=== PATIENT | male | born 1950 | race Caucasian/White ===

== ENCOUNTER → 2018-11-16 | Outpatient (CLI) | payer MEDICARE, OTHER ==
[~2018-11-16] MED LIST: ACET325 PO; ALBU90OI61 INH; ANDROGEL; FLUD.1; FLUSAL1005 INH; Fludrocortison0.1 MG PO; HYDCOR10; HYDCOR20 PO; INSLI100I; INSLI100I SUBQ; INSULANI; INSULANI SUBQ; INSULANPEN SC; LEVO750 PO; LEVSOD50; LEVSOD50 PO; PANT40 PO; Prednisone20 MG PO; SYNTHROID PO; TESTOSTERONE; [UNRECOGNIZED DRUG - OTHER]
== END | disposition home or self-care (01) ==
LOC: LAB SHORT 15:18 → LAB EV 15:18
DX: R31.9 Hematuria, unspecified (principal)
CPT/HCPCS: 87086

== ENCOUNTER → 2019-09-17 | Outpatient (CLI) | payer MEDICARE, OTHER | END | disposition home or self-care (01) | LOC: PLD 10:34 → LAB SHORT 10:34 | DX: L30.8 Other specified dermatitis (principal) | CPT/HCPCS: 88305; 88312 ==

== ENCOUNTER → 2020-03-30 | Outpatient (CLI) | payer MEDICARE, OTHER ==
[2020-03-30 16:55] LABS: BASOPHILS ABSOLUTE AUTO 0.06 K/mm3 (0.00-0.23); BASOPHILS PERCENT AUTO 1 % (0-2); EOSINOPHILS ABSOLUTE AUTO 0.19 K/mm3 (0.00-0.68); EOSINOPHILS PERCENT AUTO 2 % (0-6); Hematocrit 39.2 % (37.0-53.0); IMMATURE GRAN ABSOLUTE AUTO 0.03 K/mm3 (0.00-0.10); IMMATURE GRAN PERCENT AUTO 0 % (0-1); LYMPHOCYTES ABSOLUTE AUTO 1.74 K/mm3 (0.84-5.20); LYMPHOCYTES PERCENT AUTO 21 % (21-46); MONOCYTES PERCENT AUTO 13 % (4-13); Mean Corpuscular HGB 31.9 pg (26.0-34.0); Mean Corpuscular HGB Conc 33.2 g/dL (31.5-36.5); Mean Corpuscular Volume 96 fL (80-100); Mean Platelet Volume 10.6 fL (9.1-12.4); NEUTROPHILS PERCENT AUTO 63 % (41-73); Platelet Count 289 K/mm3 (150-400); RDW Standard Deviation 51.9 fL (35.1-46.3); Red Blood Cell Count 4.08 M/mm3 (4.30-5.90); White Blood Cell Count 8.42 K/mm3 (4.00-11.30)
[2020-03-30 17:07] LABS: Albumin, Blood 2.7 g/dL (3.4-5.0); Albumin/Globulin Ratio 0.7 (0.8-1.8); Bilirubin, Total 0.6 mg/dL (0.1-1.0); Calcium, Blood 8.5 mg/dL (8.5-10.1); Creatinine, Blood 1.94 mg/dL (0.60-1.20); Globulin, Blood 3.8 g/dL (2.2-4.0); Total Protein, Blood 6.5 g/dL (6.4-8.2)
[2020-03-31 16:10] LABS: Campylobacter Sp Not Detected (NOT DETECT)
[2020-03-31 16:13] LABS: Adenovirus F 40/41 Not Detected (NOT DETECT); Astrovirus Not Detected (NOT DETECT); Cryptosporidium Not Detected (NOT DETECT); Cyclospora Cayetanensis Not Detected (NOT DETECT); E. Coli O157 Not Detected (NOT DETECT); Entamoeba Histolytica Not Detected (NOT DETECT); Enteroaggregative E. coli-EAEC Not Detected (NOT DETECT); Enteropathogenic E. coli-EPEC Not Detected (NOT DETECT); Enterotoxigenic E. coli-ETEC Not Detected (NOT DETECT); Giardia Lamblia Not Detected (NOT DETECT); Norovirus GI/GII Not Detected (NOT DETECT); Plesiomonas Shigelloides Not Detected (NOT DETECT); Rotavirus A Not Detected (NOT DETECT); Salmonella Sp Not Detected (NOT DETECT); Sapovirus Not Detected (NOT DETECT); Shiga Toxin-prod E. coli-STEC Not Detected (NOT DETECT); Shigella/Enteroin E. coli-EIEC Not Detected (NOT DETECT); Vibrio Cholerae Not Detected (NOT DETECT); Vibrio Sp Not Detected (NOT DETECT); Yersinia Enterocolitica Not Detected (NOT DETECT)
== END ==
LOC: LAB EV 16:51 → LAB SHORT 16:51
PROVIDERS: Emergency Medicine
DX: R10.9 Unspecified abdominal pain (principal)
CPT/HCPCS: 0097U; 80053; 85025; 87338

== ENCOUNTER 2020-04-09 12:31 | Inpatient (IN) | payer MEDICARE, OTHER ==
[~2020-04-09] VITALS: Ht 175.3 cm; Wt 79.1 kg
[~2020-04-09 12:31] MED LIST changes: -ALBU90OI61 INH; -HYDCOR20 PO; -INSLI100I SUBQ; -INSULANPEN SC; -LEVSOD50 PO; -TESTOSTERONE
[2020-04-09 13:33] LABS: Hematocrit 42.5 % (37.0-53.0); Hemoglobin 13.5 g/dL (13.5-17.5); Mean Corpuscular HGB 31.7 pg (26.0-34.0); Mean Corpuscular HGB Conc 31.8 g/dL (31.5-36.5); Mean Platelet Volume 10.4 fL (9.1-12.4); NRBC ABSOLUTE 0.02 K/mm3 (0.00-0.02); NRBC Auto 0.1 /100 WBC (0.0-0.2); Platelet Count 380 K/mm3 (150-400); RDW Coefficient Variation 14.5 % (11.7-14.2); RDW Standard Deviation 53.1 fL (35.1-46.3); Red Blood Cell Count 4.26 M/mm3 (4.30-5.90); White Blood Cell Count 18.28 K/mm3 (4.00-11.30)
[2020-04-09 13:37] LABS: Mean Corpuscular Volume 100 fL (80-100)
[2020-04-09 13:53] LABS: Albumin, Blood 2.3 g/dL (3.4-5.0); Albumin/Globulin Ratio 0.6 (0.8-1.8); Globulin, Blood 4.1 g/dL (2.2-4.0); Potassium, Blood 3.7 mmol/L (3.5-5.5); Total Protein, Blood 6.4 g/dL (6.4-8.2)
[2020-04-09 14:05] LABS: BAND PERCENT MAN 19 % (0-8); BASOPHILS PERCENT MAN 0 % (0-2); EOSINOPHILS ABSOLUTE MAN 0.36 K/mm3 (0.00-0.68); EOSINOPHILS PERCENT MAN 2 % (0-6); LYMPHOCYTES ABSOLUTE MAN 4.75 K/mm3 (0.84-5.20); LYMPHOCYTES PERCENT MAN 26 % (21-46); METAMYELOCYTE ABSOLUTE MAN 0.36 K/mm3 (0.00-0.00); METAMYELOCYTE PERCENT MAN 2 % (0-0); MONOCYTES ABSOLUTE MAN 0.36 K/mm3 (0.16-1.47); MONOCYTES PERCENT MAN 2 % (4-13); NEUTROPHILS ABSOLUTE MAN 12.43 K/mm3 (1.96-9.15); SEG NEUTROPHILS PERCENT MAN 49 % (41-73); TOTAL CELLS COUNTED 100
[2020-04-09] MEDS ORDERED: Humalog100 UNIT/3 SC (15:27)
[2020-04-09] MEDS ORDERED: Depo-Testos200 MG/ML IM (15:29)
[2020-04-09] MEDS ORDERED: ALBU90OI INH (15:30)
[2020-04-09] MEDS ORDERED: FLUT1DIS5 INH (15:31)
[2020-04-09] MEDS ORDERED: BASAGLAR K100 UNIT/2 SC (15:32)
[2020-04-09] MEDS ORDERED: LEVSOD100 PO (15:33)
[2020-04-09] MEDS ORDERED: HYDCOR10 PO (15:34)
[2020-04-09] MEDS ORDERED: HYDCOR20 PO (15:34)
[2020-04-09] MEDS ORDERED: LOSA25 PO (15:36)
[2020-04-09] MEDS ORDERED: BASAGLAR K100 UNIT/2 PO (15:45)
--- NOTE | 2020-04-10 04:18 | NUR ---
SHIFT SUMMARY ADMITTED FOR AUTOIMMUNE COLLITIS. FULL CODE. GI CONSULT, DR NAVARRETE, HAS BEEN CALLED THIS SHIFT. NS W/KCL INFUSING @ 75 ML/HR. HE IS INDEPENDENT TO STANDBY ASSIST TO BSC. IS ON CLEAR LIQUID DIET, BUT WHEN ADVANCED - NOTE: KOSHER DIET. HE IS ON RA. RED TINGED LOOSE STOOL REPORTED, NONE COLLECTED THIS SHIFT FOR SPECIMEN.
[2020-04-10 05:38] LABS: Hematocrit 40.8 % (37.0-53.0); Hemoglobin 13.1 g/dL (13.5-17.5); Mean Corpuscular HGB 31.5 pg (26.0-34.0); Mean Corpuscular HGB Conc 32.1 g/dL (31.5-36.5); Mean Corpuscular Volume 98 fL (80-100); Mean Platelet Volume 10.5 fL (9.1-12.4); Platelet Count 344 K/mm3 (150-400); RDW Standard Deviation 50.6 fL (35.1-46.3); Red Blood Cell Count 4.16 M/mm3 (4.30-5.90)
[2020-04-10 05:57] LABS: BAND PERCENT MAN 25 % (0-8); BASOPHILS PERCENT MAN 0 % (0-2); EOSINOPHILS ABSOLUTE MAN 0.09 K/mm3 (0.00-0.68); EOSINOPHILS PERCENT MAN 1 % (0-6); LYMPHOCYTES ABSOLUTE MAN 1.18 K/mm3 (0.84-5.20); LYMPHOCYTES PERCENT MAN 12 % (21-46); MONOCYTES ABSOLUTE MAN 0.29 K/mm3 (0.16-1.47); MONOCYTES PERCENT MAN 3 % (4-13); NEUTROPHILS ABSOLUTE MAN 8.31 K/mm3 (1.96-9.15); SEG NEUTROPHILS PERCENT MAN 59 % (41-73); TOTAL CELLS COUNTED 100
[2020-04-10 06:00] LABS: Albumin, Blood 1.9 g/dL (3.4-5.0); Albumin/Globulin Ratio 0.5 (0.8-1.8); Bilirubin, Total 0.5 mg/dL (0.1-1.0); Bun/Creatinine Ratio 16.3 (12.0-20.0); Calcium, Blood 7.8 mg/dL (8.5-10.1); Creatinine, Blood 2.15 mg/dL (0.60-1.20); Globulin, Blood 4.2 g/dL (2.2-4.0); Potassium, Blood 4.4 mmol/L (3.5-5.5); Total Protein, Blood 6.1 g/dL (6.4-8.2)
--- NOTE | 2020-04-10 13:31 | NUR ---
LEFT MESSAGE ON VOICE MAIL THAT PATIENT POSITIVE FOR C.DIFF.
--- NOTE | 2020-04-10 16:47 | NUR ---
ALERT. ORIENTED. PATIENT DOES NOT WISH RINGER ON ON PHONE WHICH HAS SIGNIFICANTLY UPSET HIS WHO HAS CALLED AND TALKED TO THIS NURSE. PATIENT AMBULATORY TO HALLWAY STEADY GAIT WITHOUT DIFFICULTY. HAS C/O ABD PAIN, BUT REFUSES PAIN MEDS SAYS "FEELS MUCH BETTER THAN WHEN HE CAME IN."UNLABORED RESPIRATIONS. POOR APPETITE. ABLE TO MAKE NEEDS KNOWN. DOES NOT WISH TO BE AWAKENED BU PHONE. [facility]
--- NOTE | 2020-04-11 01:15 | NUR ---
CALLED CONSULT DR NAVARRETE'S ANSWERING SERVICE LEFT MESSAGE. PT HAS DECIDED THAT HE DOES NOT WANT TO TAKE THE GO-LYTELY BOWEL PREP FOR HIS COLONOSCOPY TOMORROW. PT HAS DECIDED THAT HE WANTS THE BOWEL PREP WITH "JUST A FEW OUNCES, BUT IT'S EXPENSIVE". THIS BOWEL PREP OPTION IS NOT ALWAYS COVERED BY INSURANCE. THE PT STATES THAT HIS WILL PAY THE COST IN THE MORNING. PHARMACIST INFORMS ME THAT THERE ARE THOSE TYPES OF OPTIONS FOR BOWEL PREP AVAILABLE, IF DR NAVARRETE IS AGREEABLE TO ORDER IT.
--- NOTE | 2020-04-11 02:35 | NUR ---
CALLED PHARMACY SPOKE TO PHARMACY ABOUT ABX AND GRAM+ COCCI CLUSTERS. HE STATED ROCEPHINE IS LIKLY EFFECTIVE AGAINST GRAM+, FLAGYL IS LESS SO. IF THE CULTURE COMES BACK MRSA [facility] MAY FIND VANCOMYCIN MORE EFFECTIVE.
--- NOTE | 2020-04-11 05:19 | NUR ---
SHIFT SUMMARY ADMITTED FOR COLITIS. FULL CODE. POSITIVE FOR CDIF. CONSULT DR NAVARRETE WILL PERFORM A COLONOSCOPY TODAY. PT WILL BE NPO AT NOON. PT REFUSING GO LYTELY, REQUESTING A DIFFERENT BOWEL PREP WITH LESS VOLUME - CONSULT 'S ANSWERING SERVICE INFORMED. PHARMACY STATES OTHER BOWEL PREP OPTIONS ARE AVAILABLE BUT DR NAVARRETE MUST APPROVE THE ALTERNATIVE. PT HAD POSITIVE BLOOD CULTURES FOR GRAM POSITIVE COCCI CLUSTERS. I HAD INORGANIC CHEMICAL TECHNICIAN CALL PHARMACIST TO ASK IF CURRENT ANTIB RX WOULD BE EFFECTIVE - SEE INORGANIC CHEMICAL TECHNICIAN'S PREVIOUS NOTE. PT'S CALLED TO INQUIRE IF AN UPPER ENDOSCOPY COULD ALSO BE PERFORMED, I WILL PASS ON THIS QUESTION TO THE DAY NURSE.
--- NOTE | 2020-04-11 05:53 | NUR ---
NAVY FIGHTER PILOT SUMMARY PT AAOX4. PT WAS AWAKE THROUGHT THE NIGHT. PT TO HAVE A COLONOSCOPY IN THE AFTERNOON TODAY. NPO AT NOON. PT REQUESTED DIFFERENT BOWEL PREP, RN LEFT MESSAGE WITH DOCTORS ANSWERING SERVICE. PT BLOOD CULTURE POSITIVE FOR GRAM+ COCCI CLUSTERS. CALLED PHARMACY TO CHECK CURRENT ABX EFFECTIVENESS, SEE NOTE JOURNEYMAN PATTERNMAKER FOR ADDITIONAL INFORMATION. WILL MONITOR UNTIL SHIFT CHANGE.
--- NOTE | 2020-04-11 07:47 | NUR ---
TALKED TO ; BLD SUGAR 428, POS BLD CULTURE COCCI CLUTERS, C.DIFF POS, NEG TOXIN. ORDER LANTUS 10 UNITS ONE TIME, PATIENT HAD REFUSED LANTUS LAST NIGHT. TO ORDER LABS.
[2020-04-11 08:41] LABS: Albumin, Blood 1.9 g/dL (3.4-5.0); Anion Gap 15 mmol/L (6-16); Blood Urea Nitrogen 52 mg/dL (8-24); Bun/Creatinine Ratio 25.4 (12.0-20.0); CO2, Blood 15 mmol/L (21-32); Calcium, Blood 7.5 mg/dL (8.5-10.1); Chloride, Blood 106 mmol/L (98-108); Creatinine, Blood 2.05 mg/dL (0.60-1.20); Glomerular Filtration Rate 34 (60-); Glucose, Blood 468 mg/dL (70-99); Phosphorus, Blood 4.7 mg/dL (2.5-4.9); Potassium, Blood 5.3 mmol/L (3.5-5.5); Sodium, Blood 136 mmol/L (136-145)
--- NOTE | 2020-04-11 11:45 | NUR ---
NOTIFIED D SUGAR 473. GIVE 10 UNITS AND RECHECK IN 3-3 1/2 HOURS.
--- NOTE | 2020-04-11 12:37 | NUR ---
ADVISED PATIENT STS COULD NOT DRINK ALL FLUID BY 1200, SO NOT STARTED. ADVISED OUR PHARMACY DOES HAVE THAT PARTICULAR BOWEL PREP. CLEAR LIQUIDS FOR NOW AND WILL SEE PATIENT TONIGHT.
--- NOTE | 2020-04-11 15:17 | NUR ---
ADVISED D SUGAR 479. GIVE 1O UNITS LANTUS AND 12 UNITS SHORT ACTING INSULINS. RECHECK BEFORE DINNER.
--- NOTE | 2020-04-11 17:45 | NUR ---
TALKED TO ABOUT BLD SUGAR. GIVE 12 UNITS SHORT ACTING INSULIN. DO NOT GIVE STEROID. MD WILL ADJUST STEROID.
--- NOTE | 2020-04-11 18:44 | NUR ---
ALERT. ORIENTED. INDEPENDENT TO BSC. DROWSEY MOST OF SHIFT. POOR APPETITE. HAS C/O ABD PAIN, BUT REFUSES PAIN MEDS, STS "BETTER THAN WHEN HE CAME IN." TO HAVE COLONOSCOPY TOMORROW. AWARE OF BLOOD SUGARS. TM
[2020-04-12 05:00] LABS: Bun/Creatinine Ratio 28.9 (12.0-20.0); Calcium, Blood 7.9 mg/dL (8.5-10.1); Creatinine, Blood 1.87 mg/dL (0.60-1.20); Potassium, Blood 3.8 mmol/L (3.5-5.5)
--- NOTE | 2020-04-12 06:22 | NUR ---
PER ORDER CALLED DR. NAVARRETE REGARDING COLONOSCOPY PREP. SPOKE WITH MEL FROM PROVIDER'S ANSWERING SERVICE. NOTIFIED PT. FINISHED LAST GULP OF THE SUPREP @0615 TODAY. PER MEL INFORMATION TO BE GIVEN TO DR. NAVARRETE THIS AM.
--- NOTE | 2020-04-12 07:07 | NUR ---
SHIFT SUMMARY- NO ACUTE CHANGES OVERNIGHT. PT. COMPLETED COLONOSCOPY PREP THIS AM @0615, TOLERATED WELL. PT. HAVING GREEN WATERY STOOLS. A&O, INDEP IN ROOM. DENIED ANY C/O PAIN T/O THE NIGHT. CALL LIGHT WITHIN REACH AND SIDE RAILS UP X2.
--- NOTE | 2020-04-12 11:40 | NUR ---
04/12/20 1140 Christel Peter History, Chart, Medications and Allergies reviewed before start of procedure.PATIENT DETERMINED TO BE ASA APPROPRIATE FOR PROPOFOL SEDATION PRIOR TO START OF PROCEDURE BY .Patient confirms NPO status and agrees with scheduled surgery.LUNGS CLEAR T/O TO AUSCULTATION.Patient states colon prep results clear.MONITOR INTACT WITH CONTINUOUS PULSE OXIMETRY AND INTERMITTENT BP.3-LEAD EKG REVIEWED WITH PHYSICIAN PRIOR TO START OF PROCEDURE.O2 VIA N/C INTACT THROUGHOUT SEDATION/PROCEDURE.
--- NOTE | 2020-04-12 16:17 | NUR ---
SHIFT SUMMARY PT IS A/O X 4 WITH NO C/O PAIN. HE DID HAVE WATERY STOOL ALL MORNIG R/T HIS C-DIFF AND BOWEL PREP. SURGERY NURSE PICKED HIM UP FOR HIS SCHEDULED COLONSCOPY AND PER REPORT HE HAD AN UPPER AND LOWER SCOPE. DR NAVARRETE MET WITH THE PT AT THE BEDSIDE TO GO OVER THE RESULTS OF THE SCOPE. THE WAS UPDATED AT THE PT'S REQUEST AND DR NAVARRETE ALSO SPOKE WITH HER ABOUT HIS FINDINGS. DR HARDY HAS SEEN THE PT THIS AFTERNOON AND GAVE A ONE TIME ORDER FOR INSULIN NOW AND THEN WILL DOSE HIS DINNER TIME DOSE BASED ON HIS CARBS. PT IS SCHEDULED TO DC THIS EVENING AND HIS WILL BE TRANSPORTING HIM HOME. HE IS IND IN HIS ROOM AND ABLE TO MAKE HIS NEEDS KNOWN.
[2020-04-12] MEDS ORDERED: BASAGLAR K100 UNIT/1 SC (17:59)
[2020-04-12] MEDS ORDERED: HUMALOG KW100 UNIT/1 SC (18:02)
[2020-04-12] MEDS ORDERED: PRED20 PO (18:07)
--- NOTE | 2020-04-12 18:22 | NUR ---
PT DC HOME WITH . ALL INSTRUCTIONS REVIEWED WITH THE PT WHO VERBALIZED AN UNDERSTANDING. MED REC WAS FAXED TO [facility] PER PT REQUEST. IV REMOVED WITH NO ISSUE. ALL PERSONAL BELONGINGS SENT WITH PT. PT HAS FOLLOW UP SCHEDULED WITH [facility]. IS DOWNSTAIRS TO PICK PT UP AND HE WAS ASSISTED DOWN TO HER CAR. PT STABLE UPON DC.
== END 2020-04-12 18:21 | disposition home or self-care (01) | DRG 372 ==
LOC: ER 12:31 → MEDS 16:11
PROVIDERS: Internal Medicine; Internal Medicine Endocrinology, Diabetes & Metabolism; Internal Medicine Gastroenterology; Physician Assistant; ADMIT Family Medicine
PROC: 0DB98ZX Excision of Duodenum, Via Natural or Artificial Opening Endoscopic, Diagnostic (ICD-10-PCS; principal; 2020-04-12 10:15)
PROC: 0DB78ZX Excision of Stomach, Pylorus, Via Natural or Artificial Opening Endoscopic, Diagnostic (ICD-10-PCS; 2020-04-12 10:15)
PROC: 0DBA8ZX Excision of Jejunum, Via Natural or Artificial Opening Endoscopic, Diagnostic (ICD-10-PCS; 2020-04-12 10:15)
PROC: 0DBE8ZX Excision of Large Intestine, Via Natural or Artificial Opening Endoscopic, Diagnostic (ICD-10-PCS; 2020-04-12 10:15)
DX: A04.72 Enterocolitis due to Clostridium difficile, not specified as recurrent (principal); K51.90 Ulcerative colitis, unspecified, without complications; E27.40 Unspecified adrenocortical insufficiency; E10.22 Type 1 diabetes mellitus with diabetic chronic kidney disease; N18.3 Chronic kidney disease, stage 3 (moderate); Z79.4 Long term (current) use of insulin; E03.9 Hypothyroidism, unspecified; E29.1 Testicular hypofunction; I12.9 Hypertensive chronic kidney disease with stage 1 through stage 4 chronic kidney disease, or unspecified chronic kidney disease; Z87.891 Personal history of nicotine dependence
CPT/HCPCS: 36415; 74176; 80048; 80053; 80069; 82947; 83605; 83690; 83993; 85025; 86850; 86900; 86901; 87040; 87324; 87493; 93005; 93010; 94664; 94760; 96361; 96365; 99285-25; A9270-GY; J0696; J0744; J1815; J2704; J2930; J3480; J7030; J7050; J7120

== ENCOUNTER 2021-01-02 21:45 | Emergency (ER) | payer MEDICARE, OTHER ==
[~2021-01-02 21:45] MED LIST changes: +BASAGLAR K100 UNIT/2 PO; +BASAGLAR K100 UNIT/2 SC; +Depo-Testos200 MG/ML IM; +HYDCOR10 PO; +HYDCOR20 PO; +Humalog100 UNIT/3 SC; +LEVFLO500 PO; +LOSA25 PO; +PRED20 PO; +Prednisone10 MG PO
[2021-01-03] MEDS ORDERED: BENZ100A PO (23:51)
[2021-01-03] MEDS ORDERED: PANT40 PO (23:51)
== END 2021-01-02 21:58 | disposition left against medical advice (07) ==
LOC: ER 21:45
DX: Z53.21 Procedure and treatment not carried out due to patient leaving prior to being seen by health care provider (principal)

== ENCOUNTER 2021-01-03 19:53 | Emergency (ER) | payer MEDICARE, OTHER ==
[~2021-01-03] VITALS: Ht 172.7 cm; Wt 68.0 kg
[2021-01-03 20:23] LABS: BASOPHILS ABSOLUTE AUTO 0.04 K/mm3 (0.00-0.23); BASOPHILS PERCENT AUTO 0 % (0-2); EOSINOPHILS ABSOLUTE AUTO 0.68 K/mm3 (0.00-0.68); EOSINOPHILS PERCENT AUTO 6 % (0-6); Hematocrit 39.7 % (37.0-53.0); Hemoglobin 12.8 g/dL (13.5-17.5); IMMATURE GRAN ABSOLUTE AUTO 0.03 K/mm3 (0.00-0.10); IMMATURE GRAN PERCENT AUTO 0 % (0-1); LYMPHOCYTES ABSOLUTE AUTO 3.89 K/mm3 (0.84-5.20); LYMPHOCYTES PERCENT AUTO 34 % (21-46); MONOCYTES ABSOLUTE AUTO 1.03 K/mm3 (0.16-1.47); MONOCYTES PERCENT AUTO 9 % (4-13); Mean Corpuscular HGB 30.7 pg (26.0-34.0); Mean Corpuscular HGB Conc 32.2 g/dL (31.5-36.5); Mean Corpuscular Volume 95 fL (80-100); Mean Platelet Volume 11.2 fL (9.1-12.4); NEUTROPHILS PERCENT AUTO 50 % (41-73); Platelet Count 343 K/mm3 (150-400); RDW Coefficient Variation 12.4 % (11.7-14.2); RDW Standard Deviation 43.7 fL (35.1-46.3); Red Blood Cell Count 4.17 M/mm3 (4.30-5.90); White Blood Cell Count 11.37 K/mm3 (4.00-11.30)
[2021-01-03 20:50] LABS: Troponin I <0.015 ng/mL (0.000-0.040)
[2021-01-03 20:56] LABS: Alanine Aminotransfer (ALT/SGP 21 U/L (12-78); Albumin, Blood 2.9 g/dL (3.4-5.0); Albumin/Globulin Ratio 0.7 (0.8-1.8); Alk Phos 130 U/L (50-136); Anion Gap 14 mmol/L (6-16); Aspartate Aminotrans (AST/SGOT 14 U/L (12-37); Bilirubin, Total 0.3 mg/dL (0.1-1.0); Blood Urea Nitrogen 33 mg/dL (8-24); Bun/Creatinine Ratio 16.2 (12.0-20.0); CO2, Blood 21 mmol/L (21-32); Chloride, Blood 99 mmol/L (98-108); Creatinine, Blood 2.04 mg/dL (0.60-1.20); Globulin, Blood 4.3 g/dL (2.2-4.0); Glomerular Filtration Rate 34 (60-); Glucose, Blood 655 mg/dL (70-99); Sodium, Blood 134 mmol/L (136-145); Total Protein, Blood 7.2 g/dL (6.4-8.2)
[2021-01-03] MEDS ORDERED: PANT40 PO (23:51)
[2021-01-03] MEDS ORDERED: BENZ100A PO (23:51)
== END 2021-01-04 00:29 | disposition home or self-care (01) ==
LOC: ER 19:53
PROVIDERS: Physician Assistant
DX: R05 Cough (principal); K21.9 Gastro-esophageal reflux disease without esophagitis; E10.65 Type 1 diabetes mellitus with hyperglycemia; E10.22 Type 1 diabetes mellitus with diabetic chronic kidney disease; I12.9 Hypertensive chronic kidney disease with stage 1 through stage 4 chronic kidney disease, or unspecified chronic kidney disease; N18.30 Chronic kidney disease, stage 3 unspecified; E78.5 Hyperlipidemia, unspecified; Z88.1 Allergy status to other antibiotic agents; Z88.0 Allergy status to penicillin; Z79.4 Long term (current) use of insulin; Z87.891 Personal history of nicotine dependence
CPT/HCPCS: 36415; 71045; 80053; 82947; 83880; 84484; 85025; 93005; 93010; 94640; 96361; 96374; 99284-25; A9270; J1815; J2930; J7030

== ENCOUNTER 2021-01-26 13:23 | Inpatient (IN) | payer MEDICARE, OTHER ==
[~2021-01-26] VITALS: Ht 172.7 cm; Wt 68.0 kg
[~2021-01-26 13:23] MED LIST changes: +BENZ100A PO
[2021-01-26 13:48] LABS: BASOPHILS ABSOLUTE AUTO 0.08 K/mm3 (0.00-0.23); BASOPHILS PERCENT AUTO 1 % (0-2); EOSINOPHILS ABSOLUTE AUTO 1.07 K/mm3 (0.00-0.68); EOSINOPHILS PERCENT AUTO 7 % (0-6); Hematocrit 36.9 % (37.0-53.0); Hemoglobin 11.8 g/dL (13.5-17.5); IMMATURE GRAN ABSOLUTE AUTO 0.05 K/mm3 (0.00-0.10); IMMATURE GRAN PERCENT AUTO 0 % (0-1); LYMPHOCYTES ABSOLUTE AUTO 5.09 K/mm3 (0.84-5.20); LYMPHOCYTES PERCENT AUTO 31 % (21-46); MONOCYTES ABSOLUTE AUTO 1.79 K/mm3 (0.16-1.47); MONOCYTES PERCENT AUTO 11 % (4-13); Mean Corpuscular Volume 97 fL (80-100); Mean Platelet Volume 11.5 fL (9.1-12.4); NEUTROPHILS ABSOLUTE AUTO 8.34 K/mm3 (1.96-9.15); NEUTROPHILS PERCENT AUTO 51 % (41-73); Platelet Count 305 K/mm3 (150-400); RDW Coefficient Variation 12.8 % (11.7-14.2); RDW Standard Deviation 45.5 fL (35.1-46.3); Red Blood Cell Count 3.81 M/mm3 (4.30-5.90); White Blood Cell Count 16.42 K/mm3 (4.00-11.30)
[2021-01-26 14:13] LABS: BAND PERCENT MAN 1 % (0-8); BASOPHILS ABSOLUTE MAN 0.16 K/mm3 (0.00-0.23); BASOPHILS PERCENT MAN 1 % (0-2); EOSINOPHILS ABSOLUTE MAN 0.49 K/mm3 (0.00-0.68); EOSINOPHILS PERCENT MAN 3 % (0-6); LYMPHOCYTES ABSOLUTE MAN 3.61 K/mm3 (0.84-5.20); LYMPHOCYTES PERCENT MAN 22 % (21-46); MONOCYTES PERCENT MAN 11 % (4-13); NEUTROPHILS ABSOLUTE MAN 10.34 K/mm3 (1.96-9.15); SEG NEUTROPHILS PERCENT MAN 62 % (41-73); TOTAL CELLS COUNTED 100
[2021-01-26 14:23] LABS: Troponin I <0.015 ng/mL (0.000-0.040)
[2021-01-26 14:27] LABS: Alanine Aminotransfer (ALT/SGP 22 U/L (12-78); Albumin, Blood 2.8 g/dL (3.4-5.0); Albumin/Globulin Ratio 0.7 (0.8-1.8); Alk Phos 132 U/L (50-136); Anion Gap 12 mmol/L (6-16); Aspartate Aminotrans (AST/SGOT 12 U/L (12-37); Blood Urea Nitrogen 30 mg/dL (8-24); Bun/Creatinine Ratio 13.4 (12.0-20.0); CO2, Blood 22 mmol/L (21-32); Chloride, Blood 100 mmol/L (98-108); Creatinine, Blood 2.24 mg/dL (0.60-1.20); Globulin, Blood 4.1 g/dL (2.2-4.0); Glomerular Filtration Rate 31 (60-); Glucose, Blood 702 mg/dL (70-99); Potassium, Blood 4.7 mmol/L (3.5-5.5); Sodium, Blood 134 mmol/L (136-145); Total Protein, Blood 6.9 g/dL (6.4-8.2)
[2021-01-26] MEDS ORDERED: BASAGLAR K100 UNIT/8 SC (15:19)
[2021-01-26] MEDS ORDERED: BENZ100A PO (15:19)
[2021-01-26] MEDS ORDERED: LEVSOD100 PO (15:21)
[2021-01-26] MEDS ORDERED: PANTOPRAZOLE SO40 M2 PO (15:21)
[2021-01-26] MEDS ORDERED: ALBU90OI INH (15:22)
[2021-01-26] MEDS ORDERED: HYDCOR10 PO (15:22)
[2021-01-26] MEDS ORDERED: FLUT1DIS5 INH (15:23)
[2021-01-26] MEDS ORDERED: HUMALOG KW100 UNIT/1 SC (15:30)
[2021-01-26] MEDS ORDERED: BASAGLAR K100 UNIT/8 PO (15:31)
--- NOTE | 2021-01-26 19:09 | NUR ---
ADMISSION PT A NEW ADMISSION TO ROOM 309 FROM ED VIA [facility]. PT ALERT AND ORIENTED X4. C/O SORE THROAT, LOZENGENS ORDERED. OXYGEN SATURATION 99-100% ON 2L OXYGEN (PT'S HOME DOSE). PT HAS A NONPRODUCTIVE HACKING COUGH. NO COMPLAINTS OF SHORTNESS OF BREATH AT THIS TIME. CALL LIGHT IN REACH. WILL CONTINUE TO MONITOR.
[2021-01-26 21:16] LABS: Glucose, Blood 674 mg/dL (70-99)
[2021-01-27 04:17] LABS: BASOPHILS ABSOLUTE AUTO 0.01 K/mm3 (0.00-0.23); BASOPHILS PERCENT AUTO 0 % (0-2); EOSINOPHILS PERCENT AUTO 0 % (0-6); Hemoglobin 11.1 g/dL (13.5-17.5); IMMATURE GRAN ABSOLUTE AUTO 0.05 K/mm3 (0.00-0.10); IMMATURE GRAN PERCENT AUTO 1 % (0-1); LYMPHOCYTES ABSOLUTE AUTO 0.52 K/mm3 (0.84-5.20); LYMPHOCYTES PERCENT AUTO 5 % (21-46); MONOCYTES ABSOLUTE AUTO 0.21 K/mm3 (0.16-1.47); MONOCYTES PERCENT AUTO 2 % (4-13); Mean Corpuscular HGB 30.7 pg (26.0-34.0); Mean Corpuscular HGB Conc 33.6 g/dL (31.5-36.5); Mean Corpuscular Volume 91 fL (80-100); NEUTROPHILS ABSOLUTE AUTO 10.21 K/mm3 (1.96-9.15); NEUTROPHILS PERCENT AUTO 93 % (41-73); Platelet Count 278 K/mm3 (150-400); RDW Coefficient Variation 12.4 % (11.7-14.2); RDW Standard Deviation 41.5 fL (35.1-46.3); Red Blood Cell Count 3.62 M/mm3 (4.30-5.90)
[2021-01-27 04:37] LABS: Albumin, Blood 2.7 g/dL (3.4-5.0); Albumin/Globulin Ratio 0.7 (0.8-1.8); Bilirubin, Total 0.5 mg/dL (0.1-1.0); Calcium, Blood 9.4 mg/dL (8.5-10.1); Creatinine, Blood 2.11 mg/dL (0.60-1.20); Globulin, Blood 3.9 g/dL (2.2-4.0); Magnesium, Blood 2.4 mg/dL (1.6-2.4); Phosphorus, Blood 3.1 mg/dL (2.5-4.9); Potassium, Blood 4.5 mmol/L (3.5-5.5); Total Protein, Blood 6.6 g/dL (6.4-8.2)
--- NOTE | 2021-01-27 18:06 | NUR ---
SHIFT SUMMARY PT'S BLOOD SUGARS ARE RUNNING IN THE 200'S WHEN EATING. NO COMPLAINTS OF PAIN. PT STILL HAS HACKING COUGH AT TIMES AND DOCTOR AWARE. PT HAS HAD NO COMPLAINTS OF PAIN OR SHORTNESS OF BREATH. PT INDEPENDENT IN ROOM. PT HAS GOOD APPETITE. NO ACUTE CHANGES THIS SHIFT. PLANS FOR PT TO BE DISCHARGED TOMORROW. CALL LIGHT IN REACH. WILL CONTINUE TO MONITOR AND REPORT TO ONCOMING RN.
--- NOTE | 2021-01-27 18:53 | NUR ---
ADMIT: 06/28/21 DISCHARGE: DX: copd ex CC: cpeabody ADMIT: 06/07/20 DISCHARGE:06/10/20 DX: Acute COPD CC:cpeabody ADMIT: 04/09/20 DISCHARGE: 04/12/20 DX: PancolitisCC: cpeabody YU CALL: call him at home for yu RESIDENCE: Home CAREGIVER: Sultana Renteria (Spouse): ? DX: HTN, hypothyroidism, CKD3, DMI, see list DME: DM supplies, ordered nebulizer from [facility] [place] 06/10/20 CCM: No record HOME HEALTH: No record Summary: Admit: 01/26/21 01/27/[address] Ponce, cough has improved, ETA discharge Tuesday.- A/P -- 1: Asthma attackA/P: Unknown what the actual triggers are
--- NOTE | 2021-01-27 21:27 | NUR ---
BG 399 PT BG 399 PAIGE LITTLE PRECISION INSTRUMENT AND TOOL MAKER MADE AWARE. MEDICATED PER SLIDING SCALE WITH 15 UNITS OF SEMGLEE. NO ADDITIONAL ORDERS GIVEN.
[2021-01-28] MEDS ORDERED: PANT40 PO (05:04)
[2021-01-28] MEDS ORDERED: SPIRIVA RESPIMAT4 G3 INH (05:05)
--- NOTE | 2021-01-28 05:38 | NUR ---
SHIFT SUMMARY BG IN THE 300'S THIS SHIFT PROVIDER NOTIFIED EARLIER IN SHIFT OF PT BG AND THE AMOUNT GIVEN AT HS WITH NO ADDITIONAL ORDERS GIVEN, ASIDE TO MONITOR BG WITH CURRENT ORDERS Q4 HRS. MEDICATED Q4HR WITH INSULIN, PT BG NOW IN THE 200'S THIS AM. PT HAS RESTED MOST OF THE NIGHT. INDEPENDENT IN THE ROOM. PT RESP E/U ON RA. HARSH/HACKING NON PRODUCTIVE COUGH. COUGH SYRUP ADMINISTERED PER ORDERS. IV SOLUMEROL PER ORDERS. NO ACUTE CHAGES OVERNIGHT, PLAN IS FOR DC TODAY. BED IN LOWEST POSITION, CALL LIGHT WITHIN REACH.
--- NOTE | 2021-01-28 12:11 | NUR ---
PT CBG/PHYSICIAN NOTIFICATION THIS RN RECIEVED PT CBG RESULT OF 362 AND ADMINISTER 15 UNITS HUMALOG PER ORDERS AND SS. THIS RN SPOKE WITH DR. LENTZ AT 1210 AND RECIEVED ORDERS TO ADMINISTER AN ADDITIONAL 10 UNITS OF SEMGLEE. THIS RN WILL CONTINUE TO MONITOR PT STATUS AND CBG RESULTS.
--- NOTE | 2021-01-28 16:39 | NUR ---
SHIFT SUMMARY PT IS AOX4 AND INDEPENDENT. PT DENIES PAIN, N/V. PT MEDICATED WITH PRN BREATHING TREATMENTS AND MEDICATIONS PER EMAR FOR SOB AND COUGH. PT HAS A GOOD APPETITE. PT HAD ONE INCIDENCE OF HYPERGLYCEMIA THIS SHIFT-SEE NOTE. PT REFUSED AM DOSE OF SOLUMEDROL AND ADDITIONAL 10 UNIT SEMGLEE DOSE FOR HYPERGLYCEMIA TODAY. PT EDUCATED ON MEDICATIONS. PT'S IN THIS [place]. PLAN IS FOR DC TOMORROW. PT IS IN BED, CALL LIGHT IN REACH, LOW POSITION.
--- NOTE | 2021-01-28 22:38 | NUR ---
GUAIFENESIN 10 mL GIVEN FOR COUGH. RT NOTIFIED FOR REQUESTED BREATHING TX. CALL LIGHT IN REACH.
--- NOTE | 2021-01-28 23:52 | NUR ---
01/28/[address] Ponce, wean oxygen, eta discharge . I will meet with patient prior to discharge to look for care needs. cp
--- NOTE | 2021-01-29 04:26 | NUR ---
SHIFT SUMMARY PATIENT HAD HARSH COUGH FIRST PART OF THE SHIFT. GUAIFENESIN 10 mL, TESSALON 100 MG, AND CEPACOL GIVEN PER EMAR WITH INITIAL MINIMAL EFFECT. RT IN FOR BREATHING TX. PATIENT COUGH EVENTUALLY REDUCED AND ABLE TO SLEEP. CBG Q4: 257, 365, AND 231. INSULIN COVERAGE PER SLIDING SCALE. REFUSED MIDNIGHT SOLUMEDROL. AXOX 4 AND INDEPENDENT IN ROOM. PIV REMAINS INTACT. COOPERATIVE WITH CARE. CALL LIGHT IN REACH. BED IN LOWEST POSITION. WILL CONTINUE TO MONITOR UNTIL DAY SHIFT NURSE ASSUMES CARE.
[2021-01-29 05:00] LABS: BASOPHILS ABSOLUTE AUTO 0.02 K/mm3 (0.00-0.23); BASOPHILS PERCENT AUTO 0 % (0-2); EOSINOPHILS PERCENT AUTO 0 % (0-6); Hematocrit 31.3 % (37.0-53.0); Hemoglobin 10.4 g/dL (13.5-17.5); IMMATURE GRAN ABSOLUTE AUTO 0.12 K/mm3 (0.00-0.10); IMMATURE GRAN PERCENT AUTO 1 % (0-1); LYMPHOCYTES ABSOLUTE AUTO 0.62 K/mm3 (0.84-5.20); LYMPHOCYTES PERCENT AUTO 3 % (21-46); MONOCYTES ABSOLUTE AUTO 0.96 K/mm3 (0.16-1.47); MONOCYTES PERCENT AUTO 5 % (4-13); Mean Corpuscular HGB 30.3 pg (26.0-34.0); Mean Corpuscular HGB Conc 33.2 g/dL (31.5-36.5); Mean Corpuscular Volume 91 fL (80-100); Mean Platelet Volume 11.5 fL (9.1-12.4); NEUTROPHILS ABSOLUTE AUTO 18.06 K/mm3 (1.96-9.15); NEUTROPHILS PERCENT AUTO 91 % (41-73); Platelet Count 302 K/mm3 (150-400); RDW Coefficient Variation 13.1 % (11.7-14.2); RDW Standard Deviation 43.1 fL (35.1-46.3); Red Blood Cell Count 3.43 M/mm3 (4.30-5.90); White Blood Cell Count 19.78 K/mm3 (4.00-11.30)
[2021-01-29 05:19] LABS: Calcium, Blood 8.9 mg/dL (8.5-10.1); Creatinine, Blood 2.15 mg/dL (0.60-1.20); Potassium, Blood 4.3 mmol/L (3.5-5.5)
[2021-01-29] MEDS ORDERED: PRED20 PO (10:20)
[2021-01-29] MEDS ORDERED: AZIT500 PO (10:22)
[2021-01-29] MEDS ORDERED: BENZ100A PO (10:23)
[2021-01-29] MEDS ORDERED: BENMENLOZ MT (10:23)
[2021-01-29] MEDS ORDERED: ROBITUSSIN DM PO (10:25)
--- NOTE | 2021-01-29 11:58 | NUR ---
PT CBG/PHYSICIAN NOTIFICATION THIS RN NOTIFIED DR. LENTZ OF PT CBG OF 415 AT 1155. THIS RN RECEIVED ORDERS TO GIVE THE 15 UNITS HUMALOG PER SS AND CONTINUE WITH PT DC. PT EDUCATION GIVEN TO CONTINUE BLOOD GLUCOSE CHECKS Q4-6H AT HOME. THIS RN WILL CONTINUE TO MONITOR PT STATUS.
--- NOTE | 2021-01-29 13:03 | NUR ---
DISCHARGE NOTE THIS RN REMOVED PT'S IV PER DOCUMENTATION. THIS RN REVIEWED DC INSTRUCTIONS AND MEDICATIONS WITH PT WHO VERBALIZED AN UNDERSTANDING. PT'S BELONGINGS WERE GATHERED. PT DRESSED SELF. PT LEFT UNIT AT APPROXIMATELY 1250 WITH DC VOLUNTEER IN A WHEELCHAIR. PT BELONGINGS WITH PT AND PT HAS LEFT THE BUILDING.
[2021-01-30] MEDS ORDERED: HYDCOR10 PO (23:32)
== END 2021-01-29 12:49 | disposition home or self-care (01) | DRG 189 ==
LOC: ER 13:23 → MEDS 15:01
PROVIDERS: Emergency Medicine; ADMIT Internal Medicine
DX: J96.01 Acute respiratory failure with hypoxia (principal); J45.901 Unspecified asthma with (acute) exacerbation; J44.1 Chronic obstructive pulmonary disease with (acute) exacerbation; K50.90 Crohn's disease, unspecified, without complications; E27.40 Unspecified adrenocortical insufficiency; I12.9 Hypertensive chronic kidney disease with stage 1 through stage 4 chronic kidney disease, or unspecified chronic kidney disease; N18.9 Chronic kidney disease, unspecified; E10.22 Type 1 diabetes mellitus with diabetic chronic kidney disease; E10.65 Type 1 diabetes mellitus with hyperglycemia; E31.0 Autoimmune polyglandular failure; E78.5 Hyperlipidemia, unspecified; F10.10 Alcohol abuse, uncomplicated; E06.3 Autoimmune thyroiditis; Z87.891 Personal history of nicotine dependence; Z98.890 Other specified postprocedural states; Z79.4 Long term (current) use of insulin
CPT/HCPCS: 36415; 71045; 80048; 80053; 82947; 83735; 83880; 84100; 84484; 85025; 93005; 93010; 94640; 94644; 94760; 96374; 99285-25; A9270; C9113; J1650; J1815; J2920; J2930; J7512

== ENCOUNTER 2021-01-30 22:26 | Emergency (ER) | payer MEDICARE, OTHER ==
[~2021-01-30] VITALS: Ht 172.7 cm; Wt 68.0 kg
[~2021-01-30 22:26] MED LIST changes: +ALBU90OI INH; +AZIT500 PO; +BASAGLAR K100 UNIT/8 PO; +BASAGLAR K100 UNIT/8 SC; +BENMENLOZ MT; +FLUT1DIS5 INH; +HUMALOG KW100 UNIT/1 SC; +LEVSOD100 PO; +PANTOPRAZOLE SO40 M2 PO; +ROBITUSSIN DM PO; +SPIRIVA RESPIMAT4 G3 INH
[2021-01-30] MEDS ORDERED: HYDCOR10 PO (23:32)
[2021-01-31] MEDS ORDERED: Vibramycin100 MG PO (00:02)
== END 2021-01-31 00:23 | disposition home or self-care (01) ==
LOC: ER 22:26
DX: S01.85XA Open bite of other part of head, initial encounter (principal); E10.9 Type 1 diabetes mellitus without complications; Z23 Encounter for immunization; Z79.899 Other long term (current) drug therapy; W54.0XXA Bitten by dog, initial encounter
CPT/HCPCS: 12001; 90471; 90714; 99283-25; A9270

== ENCOUNTER 2021-02-06 00:13 | Emergency (ER) | payer MEDICARE, OTHER ==
[~2021-02-06] VITALS: Ht 172.7 cm; Wt 68.0 kg
[~2021-02-06 00:13] MED LIST changes: +Vibramycin100 MG PO
[2021-02-06 00:46] LABS: BASOPHILS ABSOLUTE AUTO 0.07 K/mm3 (0.00-0.23); BASOPHILS PERCENT AUTO 0 % (0-2); EOSINOPHILS ABSOLUTE AUTO 0.61 K/mm3 (0.00-0.68); EOSINOPHILS PERCENT AUTO 4 % (0-6); Hematocrit 41.9 % (37.0-53.0); Hemoglobin 14.1 g/dL (13.5-17.5); IMMATURE GRAN ABSOLUTE AUTO 0.19 K/mm3 (0.00-0.10); IMMATURE GRAN PERCENT AUTO 1 % (0-1); LYMPHOCYTES ABSOLUTE AUTO 1.73 K/mm3 (0.84-5.20); LYMPHOCYTES PERCENT AUTO 11 % (21-46); MONOCYTES ABSOLUTE AUTO 1.48 K/mm3 (0.16-1.47); MONOCYTES PERCENT AUTO 9 % (4-13); Mean Corpuscular HGB 30.9 pg (26.0-34.0); Mean Corpuscular HGB Conc 33.7 g/dL (31.5-36.5); Mean Corpuscular Volume 92 fL (80-100); Mean Platelet Volume 11.4 fL (9.1-12.4); NEUTROPHILS ABSOLUTE AUTO 12.43 K/mm3 (1.96-9.15); NEUTROPHILS PERCENT AUTO 75 % (41-73); Platelet Count 358 K/mm3 (150-400); RDW Coefficient Variation 13.1 % (11.7-14.2); RDW Standard Deviation 43.3 fL (35.1-46.3); Red Blood Cell Count 4.56 M/mm3 (4.30-5.90); White Blood Cell Count 16.51 K/mm3 (4.00-11.30)
[2021-02-06 01:09] LABS: Alanine Aminotransfer (ALT/SGP 36 U/L (12-78); Albumin, Blood 2.9 g/dL (3.4-5.0); Albumin/Globulin Ratio 0.8 (0.8-1.8); Alk Phos 127 U/L (50-136); Anion Gap 7 mmol/L (6-16); Aspartate Aminotrans (AST/SGOT 30 U/L (12-37); Bilirubin, Total 0.6 mg/dL (0.1-1.0); Blood Urea Nitrogen 56 mg/dL (8-24); Bun/Creatinine Ratio 29.3 (12.0-20.0); CO2, Blood 25 mmol/L (21-32); Chloride, Blood 106 mmol/L (98-108); Creatinine, Blood 1.91 mg/dL (0.60-1.20); Globulin, Blood 3.8 g/dL (2.2-4.0); Glomerular Filtration Rate 37 (60-); Glucose, Blood 235 mg/dL (70-99); Potassium, Blood 4.5 mmol/L (3.5-5.5); Sodium, Blood 138 mmol/L (136-145); Total Protein, Blood 6.7 g/dL (6.4-8.2); Troponin I <0.015 ng/mL (0.000-0.040)
== END 2021-02-06 03:40 | disposition home or self-care (01) ==
LOC: ER 00:13
PROVIDERS: Emergency Medicine
DX: R55 Syncope and collapse (principal); I12.9 Hypertensive chronic kidney disease with stage 1 through stage 4 chronic kidney disease, or unspecified chronic kidney disease; E10.22 Type 1 diabetes mellitus with diabetic chronic kidney disease; N18.4 Chronic kidney disease, stage 4 (severe); E78.5 Hyperlipidemia, unspecified; E03.9 Hypothyroidism, unspecified; Z79.899 Other long term (current) drug therapy; Z79.4 Long term (current) use of insulin; Z87.891 Personal history of nicotine dependence
CPT/HCPCS: 80053; 84484; 85025; 93005; 93010; 96374; 99284-25; J2405

== ENCOUNTER 2021-02-21 15:48 | Inpatient (IN) | payer MEDICARE, OTHER ==
[~2021-02-21] VITALS: Ht 172.7 cm; Wt 61.0 kg
[2021-02-21 16:20] LABS: BASOPHILS ABSOLUTE AUTO 0.04 K/mm3 (0.00-0.23); BASOPHILS PERCENT AUTO 0 % (0-2); EOSINOPHILS ABSOLUTE AUTO 1.34 K/mm3 (0.00-0.68); EOSINOPHILS PERCENT AUTO 12 % (0-6); Hematocrit 35.9 % (37.0-53.0); Hemoglobin 11.8 g/dL (13.5-17.5); IMMATURE GRAN ABSOLUTE AUTO 0.04 K/mm3 (0.00-0.10); IMMATURE GRAN PERCENT AUTO 0 % (0-1); LYMPHOCYTES ABSOLUTE AUTO 3.08 K/mm3 (0.84-5.20); LYMPHOCYTES PERCENT AUTO 28 % (21-46); MONOCYTES ABSOLUTE AUTO 1.31 K/mm3 (0.16-1.47); MONOCYTES PERCENT AUTO 12 % (4-13); Mean Corpuscular HGB 30.3 pg (26.0-34.0); Mean Corpuscular HGB Conc 32.9 g/dL (31.5-36.5); Mean Corpuscular Volume 92 fL (80-100); Mean Platelet Volume 11.4 fL (9.1-12.4); NEUTROPHILS ABSOLUTE AUTO 5.24 K/mm3 (1.96-9.15); NEUTROPHILS PERCENT AUTO 47 % (41-73); Platelet Count 311 K/mm3 (150-400); RDW Coefficient Variation 13.3 % (11.7-14.2); RDW Standard Deviation 44.9 fL (35.1-46.3); Red Blood Cell Count 3.89 M/mm3 (4.30-5.90); White Blood Cell Count 11.05 K/mm3 (4.00-11.30)
[2021-02-21 16:40] LABS: Albumin/Globulin Ratio 0.8 (0.8-1.8); Bilirubin, Total 0.3 mg/dL (0.1-1.0); Bun/Creatinine Ratio 17.3 (12.0-20.0); Calcium, Blood 8.8 mg/dL (8.5-10.1); Creatinine, Blood 1.68 mg/dL (0.60-1.20); Globulin, Blood 3.6 g/dL (2.2-4.0); Potassium, Blood 3.3 mmol/L (3.5-5.5); Total Protein, Blood 6.6 g/dL (6.4-8.2)
[2021-02-21 21:10] LABS: PCO2 Arterial 37.3 mmHg (35-45); PO2 Arterial 81.9 mmHg (80-100)
[2021-02-22 04:24] LABS: BASOPHILS ABSOLUTE AUTO 0.03 K/mm3 (0.00-0.23); BASOPHILS PERCENT AUTO 0 % (0-2); EOSINOPHILS ABSOLUTE AUTO 0.01 K/mm3 (0.00-0.68); EOSINOPHILS PERCENT AUTO 0 % (0-6); Hematocrit 36.8 % (37.0-53.0); Hemoglobin 11.7 g/dL (13.5-17.5); IMMATURE GRAN ABSOLUTE AUTO 0.03 K/mm3 (0.00-0.10); IMMATURE GRAN PERCENT AUTO 0 % (0-1); LYMPHOCYTES ABSOLUTE AUTO 0.57 K/mm3 (0.84-5.20); LYMPHOCYTES PERCENT AUTO 6 % (21-46); MONOCYTES ABSOLUTE AUTO 0.15 K/mm3 (0.16-1.47); MONOCYTES PERCENT AUTO 2 % (4-13); Mean Corpuscular HGB 30.2 pg (26.0-34.0); Mean Corpuscular HGB Conc 31.8 g/dL (31.5-36.5); Mean Corpuscular Volume 95 fL (80-100); Mean Platelet Volume 11.3 fL (9.1-12.4); NEUTROPHILS ABSOLUTE AUTO 8.88 K/mm3 (1.96-9.15); NEUTROPHILS PERCENT AUTO 92 % (41-73); Platelet Count 292 K/mm3 (150-400); RDW Coefficient Variation 13.2 % (11.7-14.2); RDW Standard Deviation 45.8 fL (35.1-46.3); Red Blood Cell Count 3.88 M/mm3 (4.30-5.90); White Blood Cell Count 9.67 K/mm3 (4.00-11.30)
[2021-02-22 04:49] LABS: Bun/Creatinine Ratio 16.7 (12.0-20.0); Calcium, Blood 8.6 mg/dL (8.5-10.1); Creatinine, Blood 1.74 mg/dL (0.60-1.20); Potassium, Blood 4.8 mmol/L (3.5-5.5)
--- NOTE | 2021-02-22 05:54 | NUR ---
SHIFT SUMMARY PT ARRIVED AT 2200 LAST NIGHT. VITALS HAVE BEEN STABLE. SATS HAVE BEEN ABOVE 92%. USING 4L NC FOR COMFORT. PT HAS A VERY LOUD BARKY UNPRODUCTIVE COUGH. LUNGS HAVE CRACKLES THROUGHT. PT DENIES CHEST PAIN. RT IS FOLLOWING PT. HE IS A SBA ASSIST TO BATHROOM AND WAS ADVISED TO USE CALL LIGHT IF NEEDING TO GET UP DUE TO SOB.
--- NOTE | 2021-02-22 07:46 | NUR ---
NOTIF[place]ERS [place] [facility] [facility] THIS AM AND LCS COVERAGE OF 5 UNITS; NEW ORDERS FOR A TOTAL OF 10 UNITS OF INSULIN AND TO CHANGE TO MEDIUM SLIDING SCALE FOR LUNCH. WILL CONTINUE TO MONITOR.
[2021-02-22 12:18] LABS: Glucose, Blood 614 mg/dL (70-99)
--- NOTE | 2021-02-22 12:45 | NUR ---
CBG OF 614; PT ADMINISTERED 16 UNITS OF HUMALOG INSULIN; NOTIFIED DR MORGAN; RECHECK CBG AT 1300 AND CALL WITH RESULTS.
[2021-02-22 13:47] LABS: Glucose, Blood 653 mg/dL (70-99)
[2021-02-22 14:13] LABS: Influenza A Negative (NEGATIVE); Influenza B Negative (NEGATIVE)
[2021-02-22 15:22] LABS: Glucose, Blood 616 mg/dL (70-99)
--- NOTE | 2021-02-22 15:26 | NUR ---
[place]IF[place]INEY [place] [facility] [place] [facility] NEW ORDERS TO GIVE AN ADDITIONAL 10 UNITS OF HUMALOG; RECHECK AT DINNER TIME
[2021-02-22 17:17] LABS: Glucose, Blood 540 mg/dL (70-99)
--- NOTE | 2021-02-22 17:50 | NUR ---
NOTIFIED DR MORGAN OF CBG 540; NEW ORDERS TO GIVE SCHEDULED 1730 HUMALOG HE WOULD ADMINISTER AT HOME AND HUMALOG 5 UNIT SC ONCE. NEW ORDERS TO CHANGE CBG AND HUMALOG ORDERS TO Q4. WILL CONTINUE TO MONITOR.
--- NOTE | 2021-02-22 18:08 | NUR ---
SHIFT SUMMERY PT ALERT AND ORIENTED X 4 THROUGHOUT SHIFT. PT SBA BUT ABLE TO AMBULATE ON OWN FREELY. PT SPO2 IN 90'S AT 3 L O2 VIA NASAL CANULA. PT DENIED CHEST PAIN BUT STATED SOB. DRY, NON-PRODUCTIVE COUGH NOTED. COUGH WAS MORE PERSISTANT IN AM BUT LESSENED DURING SHIFT. PT ABLE TO AMBULATE TO BATHROOM ON OWN; CARDING MACHINE OPERATOR UTILIZED. SCAB ON PT NOSE NOTED. PT STATED HIS DOG BIT HIM. PT BG RANGED FROM 440-653. OMAIRA DEL RIO NOTIFIED AFTER EACH LAB RESULT. PT EDUCATED ON AFFECTS OF STEROIDS INCREASING BG. PT SELF ADMINISTERS INSULIN INJECTIONS PER ORDER; PT ALSO CALCULATES DOSE BY CARB COUNTING PER ORDER. PT VISITED PT AT [phone]. PT STATED RIGHT IV ACCESS CAUSING SLIGHT PAIN. THIS STUDEN STATED DISCUSSING REMOVAL OF R IV WITH OMAIRA DEL RIO. PT CURRENTLY RESTING, CALL LIGHT W/IN REACH.
--- NOTE | 2021-02-22 18:55 | NUR ---
THIS RN REVIEWED STUDENT NURSE CHARTING AND AM IN AGREEMENT. DR MORGAN NOTIFIED OF CBG T/O SHIFT AND NEW ORDERS ENTERED. PLANS FOR CBG Q4 AND COVERAGE. ELEVATED BP NOTED THIS AFTERNOON, TRENDED BACK DOWN THIS EVENING; OTHER VSS. NO OTHER ACUTE CHANGES NOTED. WILL CONTINUE TO MONTIOR UNTIL REPORT GIVEN TO ONCOMING RN.
[2021-02-23 04:23] LABS: BASOPHILS ABSOLUTE AUTO 0.02 K/mm3 (0.00-0.23); BASOPHILS PERCENT AUTO 0 % (0-2); EOSINOPHILS PERCENT AUTO 0 % (0-6); Hematocrit 30.9 % (37.0-53.0); Hemoglobin 10.5 g/dL (13.5-17.5); IMMATURE GRAN ABSOLUTE AUTO 0.08 K/mm3 (0.00-0.10); IMMATURE GRAN PERCENT AUTO 1 % (0-1); LYMPHOCYTES ABSOLUTE AUTO 0.66 K/mm3 (0.84-5.20); LYMPHOCYTES PERCENT AUTO 4 % (21-46); MONOCYTES ABSOLUTE AUTO 0.71 K/mm3 (0.16-1.47); MONOCYTES PERCENT AUTO 4 % (4-13); Mean Corpuscular HGB 31.2 pg (26.0-34.0); Mean Corpuscular Volume 92 fL (80-100); NEUTROPHILS ABSOLUTE AUTO 15.65 K/mm3 (1.96-9.15); NEUTROPHILS PERCENT AUTO 91 % (41-73); Platelet Count 299 K/mm3 (150-400); RDW Standard Deviation 43.1 fL (35.1-46.3); Red Blood Cell Count 3.37 M/mm3 (4.30-5.90); White Blood Cell Count 17.12 K/mm3 (4.00-11.30)
--- NOTE | 2021-02-23 04:35 | NUR ---
BAND TOP MAKER SUMMARY PT HAS MAINTAINED O2 SATS >94% ON 1L VIA NC BUT HE DOES NOT WANT TO DC O2 ALL TOGETHER DO TO FEAR OF DYSPNEA. PT HAS HAD A SEVERE DRY NON-PRODUCTIVE COUGH ALL SHIFT SO AN ORDER FOR TESSALON WAS OBTAINED W NO RELIEF. PT HAS DENIED ANY CP OR NAUSEA THIS SHIFT. PT IS AXO X3-4 BUT HAS HAD MOMENTS WHERE HE IS VERY CONFUSED ABOUT TIME AND PLACE. CBG'S HAVE NORMALIZED THIS SHIFT AND REMAINED STABLE <150. PT HAS NOT BEEN ABLE TO SLEEP MUCH AT ALL THIS SHIFT DUE TO COUGH. VSS, WCTM.
[2021-02-23 04:42] LABS: Albumin, Blood 2.9 g/dL (3.4-5.0); Albumin/Globulin Ratio 0.8 (0.8-1.8); Bilirubin, Total 0.5 mg/dL (0.1-1.0); Bun/Creatinine Ratio 23.4 (12.0-20.0); Calcium, Blood 8.8 mg/dL (8.5-10.1); Creatinine, Blood 1.88 mg/dL (0.60-1.20); Globulin, Blood 3.5 g/dL (2.2-4.0); Potassium, Blood 3.7 mmol/L (3.5-5.5); Total Protein, Blood 6.4 g/dL (6.4-8.2)
--- NOTE | 2021-02-23 12:50 | NUR ---
Advance Directive(AD) education conducted. Patient is sitting up in bed and alert. Patient expresses some interest in filling out and AD so I give him an AD booklet and go over the importance and purpose of an AD. I also point out the various sections in the booklet and explain how to file the form. Patient demonstrates comprehension and thanks me for the information.
--- NOTE | 2021-02-23 18:00 | NUR ---
PATIENT TRANSFERED FROM PCU TO ROOM 329. VSS, ON RA. CONTINUES TO HAVE VERY HARSH NONPRODUCTIVE COUGH. COUGH SYRUP CHANGED TO GUAIFENESIN WITH CODEINE WITH BETTER RELIEF. TESSLON UNA DOSE ALSL INCREASED TODAY. PATIENT IS A/OX4 AND UP INDEPENDENTLY IN ROOM. TOLERATING ADA DIET. ACHS BLOOD SUGARS, SS PER PATIENTS HOME REGIMEN. SKIN INTACT. CONTINENT OF BOWEL/BLADDER. PLEASANT AND COOPERATIVE WITH CARE.
--- NOTE | 2021-02-24 03:48 | NUR ---
SHIFT SUMMARY: VSS. AFEB. AAOX4. 02 SAT 96% ON RA. CONT W/ EXERTIONAL DYSPNEA. FREQUENT HARSH, DRY COUGH/ PER PT WORSENS W/ MOVEMENT. TESSALON PERRLES AND COUGH SYRUP ADMINISTERED X 2 SO FAR TONIGHT. PT STATES HELPFUL. REPORTS BEING ABLE TO SLEEP FOR THE FIRST TIME IN A COUPLE NIGHTS. CBG 347 AND 210. PT REFUSED ORDERED DOSE OF SEMGLEE, ACCEPTING ONLY 11 UNITS RATHER THAN 15, DESPITE EDUCATION ABOUT THE REASON FOR DOSE INCREASE. NO ACUTE OVERNIGHT EVENTS. WCTM.
[2021-02-24 05:53] LABS: Bun/Creatinine Ratio 26.5 (12.0-20.0); Calcium, Blood 8.6 mg/dL (8.5-10.1); Creatinine, Blood 1.66 mg/dL (0.60-1.20); Potassium, Blood 3.5 mmol/L (3.5-5.5)
[2021-02-24] MEDS ORDERED: DOXY100 PO (11:46)
[2021-02-24] MEDS ORDERED: MONT10T PO (11:49)
[2021-02-24] MEDS ORDERED: Guaifenesin Wit10 ML PO (11:49)
[2021-02-24] MEDS ORDERED: Prednisone10 MG PO (11:51)
--- NOTE | 2021-02-24 14:38 | NUR ---
Patient is sitting on EOB and alert. Patient talks about his life growing up, his careers, his Christian genoveva and his family. I listen empathically, reinforce helpful attitudes and practices and provide companionship. Patient responds well and shows signs of an elevated mood. I will continue to remain available to patient and family.
--- NOTE | 2021-02-24 16:35 | NUR ---
DISCHARGE INSTRUCTIONS COMPLETED AND DISCUSSED WITH PT AND EXPRESSING UNDERSTANDING. SCRIPTS SENT TO [facility]OM [facility]EN[facility] MD. HAS BEEN INDEPENDENT IN ROOM. INSULIN GIVEN BY WHAT HIS REQUESTS. REPORTS HE FEELS MUCH IMPROVED SINCE ARRIVAL TO HOSPITAL. TO [facility] VIA W/C WITH DRIVING HIM HOME.
--- NOTE | 2021-02-24 17:10 | NUR ---
ADMIT: 02/21/21 DISCHARGE: 02/24/21 DX: COPD exacerbation CC: [email or web address] ADMIT: 01/26/21 DISCHARGE: ADMIT: 06/07/20 DISCHARGE:06/10/20 ADMIT: 04/09/20 DISCHARGE: 04/12/20 YU CALL: CALL HIM AT HOME FOR YU (F/U 1 week with YU or Dr. Weems) RESIDENCE: home CAREGIVER: Sultana Renteria, Spouse / Partner, DX: hypothyroidism, acute exacerbation of COPD, asthma, CKD-stage 4, Crohn's disease, HTN, DM, see list DME: DM supplies CCM: none HOME HEALTH: none SUMMARY: Admit: 02/21/21 02/24/21- per chart review with Dr. Weems, pt will be d/c today. His will be coming to get him. His pharmacy is [facility] and mail order through [facility]. He has no concerns going home and no DME needs. Pt acknowledged understanding of making f/u appt. -jasmin 02/23/21 (late entry)- per chart review with Dr. Weems, pt is on IV antibiotics and nebulizer treatment. Pt's O2 need decreased from 3L down to room air. Will discharge pt on Tuesday. -jasimn
== END 2021-02-24 15:14 | disposition home or self-care (01) | DRG 189 ==
LOC: ER 15:48 → PCU 15:49 → MEDS 02-23 11:41
PROVIDERS: Emergency Medicine; Family Medicine; Physician Assistant; ADMIT Family Medicine
PROC: 5A09457 Assistance with Respiratory Ventilation, 24-96 Consecutive Hours, Continuous Positive Airway Pressure (ICD-10-PCS; principal; 2021-02-22)
DX: J96.01 Acute respiratory failure with hypoxia (principal); J44.1 Chronic obstructive pulmonary disease with (acute) exacerbation; N18.4 Chronic kidney disease, stage 4 (severe); K50.90 Crohn's disease, unspecified, without complications; E27.40 Unspecified adrenocortical insufficiency; E23.0 Hypopituitarism; E06.3 Autoimmune thyroiditis; E10.22 Type 1 diabetes mellitus with diabetic chronic kidney disease; I12.9 Hypertensive chronic kidney disease with stage 1 through stage 4 chronic kidney disease, or unspecified chronic kidney disease; Z20.822 Contact with and (suspected) exposure to COVID-19; E78.5 Hyperlipidemia, unspecified; F41.9 Anxiety disorder, unspecified; E87.6 Hypokalemia; N18.30 Chronic kidney disease, stage 3 unspecified; F40.240 Claustrophobia; D63.1 Anemia in chronic kidney disease; M81.0 Age-related osteoporosis without current pathological fracture; E10.649 Type 1 diabetes mellitus with hypoglycemia without coma; Z98.890 Other specified postprocedural states; Z87.891 Personal history of nicotine dependence; Z79.4 Long term (current) use of insulin; Z79.899 Other long term (current) drug therapy; Z79.51 Long term (current) use of inhaled steroids
CPT/HCPCS: 36415; 36600; 71045; 80048; 80053; 82103; 82803; 82947; 83036; 83880; 84484; 85025; 85379; 87804; 93005; 93010; 94640; 94660; 94760; 94761; 94762; 96361; 96365; 96372; 96374; 96375; 96376; 99285-25; A9270; A9270-GY; G0378; J1650; J1815; J2920; J2930; J7030; J7120

== ENCOUNTER 2021-02-28 23:41 | Inpatient (IN) | payer MEDICARE, OTHER ==
[~2021-02-28] VITALS: Ht 172.7 cm; Wt 63.1 kg
[~2021-02-28 23:41] MED LIST changes: +DOXY100 PO; +Guaifenesin Wit10 ML PO; +MONT10T PO
[2021-03-01 00:17] LABS: BASOPHILS ABSOLUTE AUTO 0.06 K/mm3 (0.00-0.23); BASOPHILS PERCENT AUTO 0 % (0-2); EOSINOPHILS ABSOLUTE AUTO 0.44 K/mm3 (0.00-0.68); EOSINOPHILS PERCENT AUTO 1 % (0-6); Hematocrit 37.3 % (37.0-53.0); Hemoglobin 12.5 g/dL (13.5-17.5); IMMATURE GRAN ABSOLUTE AUTO 0.67 K/mm3 (0.00-0.10); IMMATURE GRAN PERCENT AUTO 2 % (0-1); LYMPHOCYTES ABSOLUTE AUTO 2.97 K/mm3 (0.84-5.20); LYMPHOCYTES PERCENT AUTO 8 % (21-46); MONOCYTES ABSOLUTE AUTO 1.16 K/mm3 (0.16-1.47); MONOCYTES PERCENT AUTO 3 % (4-13); Mean Corpuscular HGB 30.6 pg (26.0-34.0); Mean Corpuscular HGB Conc 33.5 g/dL (31.5-36.5); Mean Corpuscular Volume 91 fL (80-100); Mean Platelet Volume 11.3 fL (9.1-12.4); NEUTROPHILS ABSOLUTE AUTO 30.22 K/mm3 (1.96-9.15); NEUTROPHILS PERCENT AUTO 85 % (41-73); NRBC ABSOLUTE 0.02 K/mm3 (0.00-0.02); NRBC Auto 0.1 /100 WBC (0.0-0.2); Platelet Count 325 K/mm3 (150-400); RDW Coefficient Variation 13.2 % (11.7-14.2); RDW Standard Deviation 43.6 fL (35.1-46.3); Red Blood Cell Count 4.09 M/mm3 (4.30-5.90); White Blood Cell Count 35.52 K/mm3 (4.00-11.30)
[2021-03-01 00:38] LABS: Alanine Aminotransfer (ALT/SGP 28 U/L (12-78); Albumin, Blood 2.8 g/dL (3.4-5.0); Albumin/Globulin Ratio 0.9 (0.8-1.8); Alk Phos 89 U/L (50-136); Anion Gap 8 mmol/L (6-16); Aspartate Aminotrans (AST/SGOT 11 U/L (12-37); Bilirubin, Total 0.8 mg/dL (0.1-1.0); Blood Urea Nitrogen 44 mg/dL (8-24); Bun/Creatinine Ratio 22.7 (12.0-20.0); CO2, Blood 25 mmol/L (21-32); Calcium, Blood 8.7 mg/dL (8.5-10.1); Chloride, Blood 104 mmol/L (98-108); Creatinine, Blood 1.94 mg/dL (0.60-1.20); Glomerular Filtration Rate 36 (60-); Glucose, Blood 169 mg/dL (70-99); Potassium, Blood 3.6 mmol/L (3.5-5.5); Sodium, Blood 137 mmol/L (136-145); Total Protein, Blood 5.8 g/dL (6.4-8.2); Troponin I <0.015 ng/mL (0.000-0.040)
[2021-03-01 01:51] LABS: Source, Urine Clean Catch
[2021-03-01 01:58] LABS: Bilirubin, Urine Neg (Neg); Blood, Urine 3+ (Neg); Glucose Qualitative, Urine Neg (Neg); Ketones, Urine Neg (Neg); Leukocyte Esterase, Urine 1+ (Neg); Nitrite, Urine Neg (Neg); Protein, Urine 1+ (Neg); Urobilinogen, Urine NORM (Normal)
[2021-03-01 02:06] LABS: Appearance, Urine Clear (Clear); Color, Urine Yellow (P-Yellow)
[2021-03-01 02:07] LABS: Bacteria Rare /hpf; Squamous Epithelial Cells Rare /hpf (Few); White Blood Cells, Urine Rare /hpf (0-5)
[2021-03-01 02:08] LABS: Influenza A, PCR NEGATIVE (NEGATIVE); Influenza B, PCR NEGATIVE (NEGATIVE); Resp Syncytial Virus, PCR NEGATIVE (NEGATIVE); SARS-Cov-2 (COVID-19) PCR, MMC NEGATIVE (NEGATIVE)
--- NOTE | 2021-03-01 04:51 | NUR ---
ASSUMED CARE NOTE: ASSUMED CARE OF PT AT 0423, RECEVIED REPORT FROM [facility]. PT IS ALERT AND ORIENTEDX3. ABLE TO FOLLOW COMMANDS AND ANSWER QUESTIONS APPORPRIATLY. PT IS SOB, ANXIOUS. PT ON 4L VIA NC SPO2 ABOVE 95% PT IS C/O LLE CALF PAIN, NO POSTERIOR TIBIAL , POPLITEAL, NO PEDAL PULSES FOUND WITH DOPPLER. LLE COLD TO THE TOUCH, DISCOLORATION NOTED TO LLE. CALLED REGARDING PT STATUS, ORDERS FOR VENOUS DUPLEX SCAN ORDERED AND HEPARIN DRIP TO BE STARTED STAT. WILL CONTINUE TO MONITOR PT T/O
[2021-03-01 04:59] LABS: Hematocrit 35.5 % (37.0-53.0); Hemoglobin 11.8 g/dL (13.5-17.5); Mean Corpuscular HGB 30.6 pg (26.0-34.0); Mean Corpuscular HGB Conc 33.2 g/dL (31.5-36.5); Mean Corpuscular Volume 92 fL (80-100); Platelet Count 259 K/mm3 (150-400); RDW Coefficient Variation 13.2 % (11.7-14.2); RDW Standard Deviation 44.5 fL (35.1-46.3); Red Blood Cell Count 3.86 M/mm3 (4.30-5.90); White Blood Cell Count 44.16 K/mm3 (4.00-11.30)
[2021-03-01 05:22] LABS: Bun/Creatinine Ratio 20.1 (12.0-20.0); Calcium, Blood 7.9 mg/dL (8.5-10.1); Creatinine, Blood 1.99 mg/dL (0.60-1.20)
[2021-03-01 05:32] LABS: International Normalized Ratio 1.01; Prothrombin Time Results 10.9 Sec (9.7-11.5)
--- NOTE | 2021-03-01 05:50 | NUR ---
UPDATE: LASER BEAM COLOR SCANNER OPERATOR AT BEDSIDE. CALLED REGARDING PT PAIN LEVEL OF 10/10 TO LLE. UNABLE TO STAY STILL FOR TEST. ORDERS FOR PAIN MEDS GIVEN
--- NOTE | 2021-03-01 06:11 | NUR ---
CALLED, VENOUS DUPLEX SCAN RESULTS ARE IN. IS CALLING [facility] FOR POSSIBLE TRANSFER. HEPARIN DRIP INITATED.
--- NOTE | 2021-03-01 07:44 | NUR ---
AM NOTE... ASSUMED CARE OF PT AT 0700. PT IS A&Ox4, PT WAS ADMITTED FOR SESPIS PNA OF THE LLL, UPON ADMIT PT C/O OF PAIN TO HIS LEFT LEG, LEFT LEG WAS WHITE, AN ULTRA SOUND WAS DONE AND FOUND COMPLETE OCCLUSION OF THE LEFT FEMORAL ARTERY. PT IS TO BE COBRA TRANSFERED TO [facility]. PT'S VS STABLE AT THIS TIME, PT IS IN NSR IN THE 70'S. BP IS STABLE BUT SLIGHTLY HYPERTENSIVE WITH SBP IN THE 150'S. NO EDEMA IS NOTED ON ASSESSMENT. L/S CLEAR IN THE UPPER/MID LOBES AND DIM IN THE LOWER LOBES, PT WAS ON 4L NC WITH O2 SATS >95% PT WAS TITRATED DOWN BY THIS RN TO 2L NC KEEPING HIS O2 SATS >90%. BT PRESENT AND NORMOACTIVE. ABD IS SOFT AND NONTENDER TO PALP. PT'S LLE IS PALE AND COOL TO TOUCH, NO PULSES PALPABLE OR WITH DOPPLER. HEPARIN GTT RUNNING PER ORDERS. PT'S UPDATED. WILL CONTINUE TO MONITOR UNTIL TRANSFER.
--- NOTE | 2021-03-01 08:11 | NUR ---
PT UPDATE... PT CAT TRANSFERED TO [facility]IA [facility]. PT'S VS STABLE DURING TRANSFER. ALL OF PT'S BELONGINGS PACKED AND SENT WITH THE PT. PT'S UPDATED ON PLAN OF CARE AND TRANSFER. REPORT CALLED TO ZACK DEL RIO AT [facility].
== END 2021-03-01 08:00 | disposition short-term general hospital (02) | DRG 871 ==
LOC: ER 23:41 → ICUE 03-01 03:45 → ERHOLD 03-01 03:45 → ICUE 03-01 04:15
PROVIDERS: Student in an Organized Health Care Education/Training Program; ADMIT Internal Medicine
DX: A41.9 Sepsis, unspecified organism (principal); J96.01 Acute respiratory failure with hypoxia; J18.9 Pneumonia, unspecified organism; N17.9 Acute kidney failure, unspecified; J44.0 Chronic obstructive pulmonary disease with (acute) lower respiratory infection; J44.1 Chronic obstructive pulmonary disease with (acute) exacerbation; E87.2 Acidosis; E27.40 Unspecified adrenocortical insufficiency; Z20.822 Contact with and (suspected) exposure to COVID-19; R65.20 Severe sepsis without septic shock; I95.9 Hypotension, unspecified; E06.3 Autoimmune thyroiditis; I70.222 Atherosclerosis of native arteries of extremities with rest pain, left leg; E10.51 Type 1 diabetes mellitus with diabetic peripheral angiopathy without gangrene; E10.22 Type 1 diabetes mellitus with diabetic chronic kidney disease; N18.30 Chronic kidney disease, stage 3 unspecified; Z87.891 Personal history of nicotine dependence; Z79.52 Long term (current) use of systemic steroids; Z79.4 Long term (current) use of insulin; Z79.899 Other long term (current) drug therapy; Z98.890 Other specified postprocedural states; Z99.81 Dependence on supplemental oxygen
CPT/HCPCS: 0241U; 36415; 71045; 74177; 80048; 80053; 81001; 82947; 83605; 83690; 84145; 84484; 85025; 85027; 85610; 85730; 93005; 93010; 93926; 93970; 96361; 96365; 96375; 99285-25; J1170; J1644; J2543; J2930; J7030; J7120; Q9967

== ENCOUNTER 2021-04-03 18:36 | Inpatient (IN) | payer MEDICARE, OTHER ==
[~2021-04-03] VITALS: Ht 172.7 cm; Wt 64.4 kg
[2021-04-03 19:15] LABS: BASOPHILS ABSOLUTE AUTO 0.04 K/mm3 (0.00-0.23); BASOPHILS PERCENT AUTO 0 % (0-2); EOSINOPHILS PERCENT AUTO 0 % (0-6); Hematocrit 38.2 % (37.0-53.0); Hemoglobin 11.9 g/dL (13.5-17.5); IMMATURE GRAN PERCENT AUTO 1 % (0-1); LYMPHOCYTES ABSOLUTE AUTO 2.38 K/mm3 (0.84-5.20); LYMPHOCYTES PERCENT AUTO 15 % (21-46); MONOCYTES ABSOLUTE AUTO 0.61 K/mm3 (0.16-1.47); MONOCYTES PERCENT AUTO 4 % (4-13); Mean Corpuscular HGB 30.8 pg (26.0-34.0); Mean Corpuscular HGB Conc 31.2 g/dL (31.5-36.5); Mean Corpuscular Volume 99 fL (80-100); Mean Platelet Volume 11.5 fL (9.1-12.4); NEUTROPHILS PERCENT AUTO 80 % (41-73); Platelet Count 416 K/mm3 (150-400); RDW Coefficient Variation 12.6 % (11.7-14.2); RDW Standard Deviation 45.5 fL (35.1-46.3); Red Blood Cell Count 3.86 M/mm3 (4.30-5.90); White Blood Cell Count 15.83 K/mm3 (4.00-11.30)
[2021-04-03 19:34] LABS: Troponin I <0.015 ng/mL (0.000-0.040)
[2021-04-03 19:44] LABS: Alanine Aminotransfer (ALT/SGP 17 U/L (12-78); Albumin, Blood 2.7 g/dL (3.4-5.0); Albumin/Globulin Ratio 0.6 (0.8-1.8); Alk Phos 139 U/L (50-136); Anion Gap 25 mmol/L (6-16); Aspartate Aminotrans (AST/SGOT 7 U/L (12-37); Bilirubin, Total 0.8 mg/dL (0.1-1.0); Blood Urea Nitrogen 43 mg/dL (8-24); Bun/Creatinine Ratio 17.1 (12.0-20.0); CO2, Blood 9 mmol/L (21-32); Calcium, Blood 9.4 mg/dL (8.5-10.1); Chloride, Blood 94 mmol/L (98-108); Creatinine, Blood 2.51 mg/dL (0.60-1.20); Globulin, Blood 4.7 g/dL (2.2-4.0); Glomerular Filtration Rate 27 (60-); Glucose, Blood 637 mg/dL (70-99); Potassium, Blood 6.2 mmol/L (3.5-5.5); Sodium, Blood 128 mmol/L (136-145); Total Protein, Blood 7.4 g/dL (6.4-8.2)
[2021-04-03] MEDS ORDERED: ELIQUIS5 M3 PO (20:20)
[2021-04-03] MEDS ORDERED: BASAGLAR K100 UNIT/1 SC (20:33)
[2021-04-03 20:57] LABS: SARS-Cov-2 (COVID-19) PCR, MMC NEGATIVE (NEGATIVE)
[2021-04-03 20:59] LABS: PCO2 Arterial 29.3 mmHg (35-45); PO2 Arterial 188 mmHg (80-100)
[2021-04-03 21:02] LABS: pH Blood Arterial 7.12 (7.35-7.45)
[2021-04-03 22:20] LABS: Source, Urine Clean Catch
[2021-04-03 22:23] LABS: Bilirubin, Urine Neg (Neg); Blood, Urine 3+ (Neg); Glucose Qualitative, Urine 4+ (Neg); Ketones, Urine 4+ (Neg); Leukocyte Esterase, Urine Neg (Neg); Nitrite, Urine Neg (Neg); Protein, Urine 1+ (Neg); Urobilinogen, Urine NORM (Normal)
[2021-04-03 22:41] LABS: Appearance, Urine Clear (Clear); Color, Urine Yellow (P-Yellow); Red Blood Cells, Urine 0-2 /hpf (0-2); White Blood Cells, Urine Not Seen /hpf (0-5)
[2021-04-03 22:42] LABS: Bacteria Rare /hpf; Squamous Epithelial Cells Few /hpf (Few)
--- NOTE | 2021-04-03 23:15 | NUR ---
ARRIVAL TO ICU PT ARRIVED FROM ED, SLIDE TRANSFER TO ICU BED. PT ON 6L NC SPO2 >98%. PT RECEIVING 6 UNITS INSULIN AND NS BOLUS. PER DR LEWIS PT TO RECEIVE A TOTAL OF 4 NS FLUID BOLUSES BEFORE STARTING NS AT 250 ML/HR. PT ALERT AND ORIENTED TO ALL QUESTIONS, EXCEPT WHICH TOWN HE WAS IN. ABLE TO MOVE ALL EXTREMITIES, WEAKNESS NOTED X4. PT DECLINED REMOVING PANTS AND SLIPPERS, STANDS AT SIDE OF BED TO USE URINAL WITH STANDBY ASSIST. CALL LIGHT WITHIN REACH.
[2021-04-03 23:28] LABS: Base Excess Venous -20.4 mmol/L; Bicarbonate Venous 10.4 mmol/L (24.0-30.0); PCO2 Venous 33.3 mmHg (38-42); PO2 Venous 127 mmHg (38-42); pH Blood Venous 7.07 (7.34-7.37)
[2021-04-03 23:35] LABS: International Normalized Ratio 1.11; Prothrombin Time Results 11.9 Sec (9.7-11.5)
[2021-04-03 23:39] LABS: Bun/Creatinine Ratio 18.8 (12.0-20.0); Calcium, Blood 8.9 mg/dL (8.5-10.1); Creatinine, Blood 2.4 mg/dL (0.60-1.20); Magnesium, Blood 2.6 mg/dL (1.6-2.4); Potassium, Blood 5.6 mmol/L (3.5-5.5)
[2021-04-03 23:41] LABS: Phosphorus, Blood 8.5 mg/dL (2.5-4.9)
--- NOTE | 2021-04-04 00:55 | NUR ---
UPDATE DR HOLCOMB NOTIFIED REGARDING PT'S PHOS AT 8.5. DR HOLCOMB TO PLACE NEW ORDERS.
[2021-04-04 02:17] LABS: Bun/Creatinine Ratio 18.3 (12.0-20.0); Creatinine, Blood 2.24 mg/dL (0.60-1.20); Magnesium, Blood 2.2 mg/dL (1.6-2.4); Phosphorus, Blood 5.7 mg/dL (2.5-4.9); Potassium, Blood 5.2 mmol/L (3.5-5.5)
--- NOTE | 2021-04-04 06:07 | NUR ---
SHIFT SUMMARY PT RESTING COMFORTABLY IN BED, DECLINED PAIN AND NAUSEA T/O SHIFT. ALERT AND ORIENTED MAJORITY OF SHIFT, SOME CONFUSION REGARDING TOWN HE IS CURRENTLY IN AWARE HE IS IN HOSPITAL. STANDBY ASSIST TO BEDSIDE COMMODE, BED ALARM ON PT DOES NOT USE CALL LIGHT WHEN NEEDING TO GET OUT OF BED. D5 1/2 NS INFUSING AT 250 ML/HR AND INSULIN AT 2 UNITS. SPO2 >95% ON RA.
[2021-04-04 06:15] LABS: Bun/Creatinine Ratio 17.6 (12.0-20.0); Calcium, Blood 7.8 mg/dL (8.5-10.1); Creatinine, Blood 1.93 mg/dL (0.60-1.20); Magnesium, Blood 2.2 mg/dL (1.6-2.4); Phosphorus, Blood 3.8 mg/dL (2.5-4.9); Potassium, Blood 4.8 mmol/L (3.5-5.5)
[2021-04-04 10:26] LABS: Bun/Creatinine Ratio 17.7 (12.0-20.0); Calcium, Blood 7.5 mg/dL (8.5-10.1); Creatinine, Blood 1.81 mg/dL (0.60-1.20); Potassium, Blood 4.1 mmol/L (3.5-5.5)
[2021-04-04 10:48] LABS: Ketones, Urine 3+ (Neg)
[2021-04-04 15:23] LABS: Bun/Creatinine Ratio 16.7 (12.0-20.0); Calcium, Blood 7.7 mg/dL (8.5-10.1); Creatinine, Blood 1.62 mg/dL (0.60-1.20); Potassium, Blood 3.7 mmol/L (3.5-5.5)
--- NOTE | 2021-04-04 18:13 | NUR ---
SHIFT SUMMARY: PT IS NOW OFF OF INSULIN AND D5 GTTS AND RECIEVING SC INSULIN. PT CONTINUES TO HAVE HARSH, BARKING COUGH THAT STATES HAS BEEN GOING ON FOR 18 MONTHS. MED NO TELE STATUS. NO FURTHER NEEDS OR CONCERNS AT THIS TIME.
--- NOTE | 2021-04-04 19:27 | NUR ---
REPORT TO [facility] FLOOR NURSE.
--- NOTE | 2021-04-04 19:43 | NUR ---
TRANSFER NOTE REPORT RECEIVED FROM ANTONIETTA VILLA, SENIOR SAFETY MANAGEMENT CONSULTANT. PT ARRIVES TO ROOM VIA WC. PT AMBULATES SBA TO RESTROOM THEN TO BED. ORIENTED TO UNIT. CALL LIGHT WITHIN REACH.
--- NOTE | 2021-04-05 00:48 | NUR ---
PT STATUS COUGH IS VERY SEVERE THROUGOUT SHIFT. POSSIBLY LEADING HIM TO VOMIT IN IT'S SEVERITY. NAUSEA & VOMITING X2. ZOFRAN GIVEN.
--- NOTE | 2021-04-05 01:23 | NUR ---
CALLED HOSPITALIST INFORMED RE: SEVERE COUGH AND RESULTING(?) NAUSEA/VOMITING. NEW MEDICATION ORDER FOR COUGH IN EMAR.
--- NOTE | 2021-04-05 04:34 | NUR ---
SHIFT SUMMARY ADMITTED FOR DKA/HYPOXIA. FULL CODE. NO DC PLAN AT THIS TIME - PLAN TO RESUME HOME MEDICATION REGIMEN. PT HAD INCREASED SOB WITH AMBULATION TO THE RESTROOM. PT SBA PREFERS TO WALK TO RESTROOM. PT HAS CONTINUED FORCEFUL AND NONPRODUCTIVE COUGH. THIS COUGH CAUSED THE PT TO BEGIN VOMITING - ADDRESSED WITH ZOFRAN. HOSPITALIST CONTACTED FOR ORDER OF HOME TESSALON PERRLS.
[2021-04-05 04:41] LABS: BASOPHILS ABSOLUTE AUTO 0.01 K/mm3 (0.00-0.23); BASOPHILS PERCENT AUTO 0 % (0-2); EOSINOPHILS ABSOLUTE AUTO 0.01 K/mm3 (0.00-0.68); EOSINOPHILS PERCENT AUTO 0 % (0-6); Hematocrit 26.8 % (37.0-53.0); Hemoglobin 8.8 g/dL (13.5-17.5); IMMATURE GRAN ABSOLUTE AUTO 0.09 K/mm3 (0.00-0.10); IMMATURE GRAN PERCENT AUTO 1 % (0-1); LYMPHOCYTES ABSOLUTE AUTO 1.14 K/mm3 (0.84-5.20); LYMPHOCYTES PERCENT AUTO 8 % (21-46); MONOCYTES ABSOLUTE AUTO 0.85 K/mm3 (0.16-1.47); MONOCYTES PERCENT AUTO 6 % (4-13); Mean Corpuscular HGB 30.2 pg (26.0-34.0); Mean Corpuscular HGB Conc 32.8 g/dL (31.5-36.5); Mean Platelet Volume 11.5 fL (9.1-12.4); NEUTROPHILS ABSOLUTE AUTO 12.23 K/mm3 (1.96-9.15); NEUTROPHILS PERCENT AUTO 85 % (41-73); Platelet Count 337 K/mm3 (150-400); RDW Standard Deviation 43.8 fL (35.1-46.3); Red Blood Cell Count 2.91 M/mm3 (4.30-5.90); White Blood Cell Count 14.33 K/mm3 (4.00-11.30)
[2021-04-05 04:52] LABS: Mean Corpuscular Volume 92 fL (80-100)
[2021-04-05 05:11] LABS: Bun/Creatinine Ratio 17.5 (12.0-20.0); Calcium, Blood 7.9 mg/dL (8.5-10.1); Creatinine, Blood 1.71 mg/dL (0.60-1.20); Potassium, Blood 4.3 mmol/L (3.5-5.5)
[2021-04-05 05:20] LABS: Ketones, Urine 3+ (Neg)
--- NOTE | 2021-04-05 05:43 | NUR ---
CTA/MANAGEMENT TRAINER I HAVE ASSESSED THIS PT. I HAVE READ THIS MANAGEMENT TRAINER'S DOCUMENTATION AND I AGREE. SHIFT SUMMARY IS IN MANAGEMENT TRAINER NOTES.
--- NOTE | 2021-04-05 15:21 | NUR ---
Supportive Visit Pt sitting in chair upon arrival. Pt just returned from ambulating in the halls. Pt denies pain, nausea, and anxiety at this time. Pt reports mild but manageable dyspnea. Engaged in therapeutic listening as Pt reports being and having children from a previous marriage who live in [place]. Pt reports indepedence of his ADLs. Pt expresses apprciation of the care he has been receiving. Continued therapeutic listening and answered questions. Pt's spouse Sultana arrives to visit. Listened to concerns regarding the soonest available appointment for Pt is in late April to see the inspector of dredging. Suggested to request being put on a cancelation list with hopes to see inspector of dredging sooner. Ended visit to allow Pt and spouse to visit. Spoke with primary RN Tess and discussed case. Palliative Care will remain available.
[2021-04-06 04:55] LABS: BASOPHILS ABSOLUTE AUTO 0.03 K/mm3 (0.00-0.23); BASOPHILS PERCENT AUTO 0 % (0-2); EOSINOPHILS ABSOLUTE AUTO 0.08 K/mm3 (0.00-0.68); EOSINOPHILS PERCENT AUTO 1 % (0-6); Hemoglobin 8.8 g/dL (13.5-17.5); IMMATURE GRAN ABSOLUTE AUTO 0.07 K/mm3 (0.00-0.10); IMMATURE GRAN PERCENT AUTO 1 % (0-1); LYMPHOCYTES ABSOLUTE AUTO 1.09 K/mm3 (0.84-5.20); LYMPHOCYTES PERCENT AUTO 10 % (21-46); MONOCYTES ABSOLUTE AUTO 0.78 K/mm3 (0.16-1.47); MONOCYTES PERCENT AUTO 7 % (4-13); Mean Corpuscular HGB 30.4 pg (26.0-34.0); Mean Corpuscular HGB Conc 32.6 g/dL (31.5-36.5); Mean Corpuscular Volume 93 fL (80-100); Mean Platelet Volume 11.3 fL (9.1-12.4); NEUTROPHILS ABSOLUTE AUTO 9.04 K/mm3 (1.96-9.15); NEUTROPHILS PERCENT AUTO 82 % (41-73); Platelet Count 289 K/mm3 (150-400); RDW Coefficient Variation 13.7 % (11.7-14.2); RDW Standard Deviation 46.9 fL (35.1-46.3); Red Blood Cell Count 2.89 M/mm3 (4.30-5.90); White Blood Cell Count 11.09 K/mm3 (4.00-11.30)
[2021-04-06 05:26] LABS: Albumin, Blood 2.3 g/dL (3.4-5.0); Albumin/Globulin Ratio 0.7 (0.8-1.8); Bilirubin, Total 0.4 mg/dL (0.1-1.0); Bun/Creatinine Ratio 11.5 (12.0-20.0); Creatinine, Blood 1.91 mg/dL (0.60-1.20); Globulin, Blood 3.3 g/dL (2.2-4.0); Potassium, Blood 3.7 mmol/L (3.5-5.5); Total Protein, Blood 5.6 g/dL (6.4-8.2)
--- NOTE | 2021-04-06 05:50 | NUR ---
PLATING STRIPPER SUMMARY PT AAOX4 AND PLEASANT. STANDBY ASSIST IN ROOM. PT'S ONLY COMPLAINTS CONTINUES TO BE HARSH NON PRODUCTIVE COUGH. MEDICATED WITH TESSALON PER EMAR WITH SOME RELIEF. GAVE PT NORCO AT BEDTIME WHICH HELPED PT RELAX AND SLEEP FOR 2-3 HOURS WITH NO COUGHING FITS. PT HAD COUGHING SPELL AT ONE POINT THAT CAUSED SMALL NOSE BLEED. PT HAS BEEN UNABLE TO PRODUCE STOOL SAMPLE FOR OCCULT BLOOD TEST, HOWEVER HGB UNCHANGED FROM YESTERDAY THIS AM AT 8.8. VSS, WILL CONTINUE TO MONITOR.
--- NOTE | 2021-04-06 18:22 | NUR ---
SHIFT SUMMARY PT TOOK A WALK IN HALLWAY WITH STAFF THIS AFTERNOON. QUITE SOB WITH ACTIVITY WITH RESTBREAKS TAKEN. STATES HE FEELS MUCH BETTER TODAY THAN HE HAS. REPORTS NO EATING OR BM FOR SEVERAL DAYS. HAD AN EPISODE OF HYPOGLYCEMIA OF 25 WITH SYMPTOMS. APPLE JUICE GIVEN WITH RECHECK AND THEN POPCICLE THEN LUNCH WITH POST LUNCH CHEMBG 75. 1 MORE EPISODE THIS AFTERNOON AND HE DIDN'T WANT SUGAR CHECKED BUT ATE A CUP OF PEACHES WITH PRE SUPPER SUGAR 184. NO OTHER CHANGES TODAY.
[2021-04-07 02:02] LABS: Stool Occult Blood Guaiac 1 Neg (Neg)
[2021-04-07 04:41] LABS: BASOPHILS ABSOLUTE AUTO 0.03 K/mm3 (0.00-0.23); BASOPHILS PERCENT AUTO 1 % (0-2); EOSINOPHILS PERCENT AUTO 2 % (0-6); Hemoglobin 8.5 g/dL (13.5-17.5); IMMATURE GRAN ABSOLUTE AUTO 0.02 K/mm3 (0.00-0.10); IMMATURE GRAN PERCENT AUTO 0 % (0-1); LYMPHOCYTES ABSOLUTE AUTO 1.42 K/mm3 (0.84-5.20); LYMPHOCYTES PERCENT AUTO 22 % (21-46); MONOCYTES ABSOLUTE AUTO 0.62 K/mm3 (0.16-1.47); MONOCYTES PERCENT AUTO 10 % (4-13); Mean Corpuscular HGB 30.6 pg (26.0-34.0); Mean Corpuscular HGB Conc 32.7 g/dL (31.5-36.5); Mean Corpuscular Volume 94 fL (80-100); Mean Platelet Volume 11.1 fL (9.1-12.4); NEUTROPHILS ABSOLUTE AUTO 4.15 K/mm3 (1.96-9.15); NEUTROPHILS PERCENT AUTO 65 % (41-73); Platelet Count 292 K/mm3 (150-400); RDW Standard Deviation 47.8 fL (35.1-46.3); Red Blood Cell Count 2.78 M/mm3 (4.30-5.90); White Blood Cell Count 6.34 K/mm3 (4.00-11.30)
[2021-04-07 05:19] LABS: Albumin, Blood 2.2 g/dL (3.4-5.0); Albumin/Globulin Ratio 0.7 (0.8-1.8); Bilirubin, Total 0.4 mg/dL (0.1-1.0); Bun/Creatinine Ratio 11.3 (12.0-20.0); Calcium, Blood 8.2 mg/dL (8.5-10.1); Creatinine, Blood 1.68 mg/dL (0.60-1.20); Globulin, Blood 3.2 g/dL (2.2-4.0); Potassium, Blood 3.8 mmol/L (3.5-5.5); Total Protein, Blood 5.4 g/dL (6.4-8.2)
[2021-04-07 13:36] LABS: Stool Occult Blood Guaiac 1 Pos (Neg)
--- NOTE | 2021-04-07 13:41 | NUR ---
Spiritual care visit conducted. Patientis sitting up in bed and alert. Patient talks about his medical issues and what his base line at home is for activity and oxygen and blood sugar levels. Patient then shares at length about his spiritual belief system, his family unit complications and the places where he feels sinai and fulfillment. I reinforce helpful attitudes and practices and provide therapeutic listening and companionship. Patient responds well and shows signs of an elevated mood. I will continue to remain available to patient and family.
[2021-04-07] MEDS ORDERED: GUAI600T33 PO (14:37)
[2021-04-07] MEDS ORDERED: Tessalon Perle100 MG PO (14:37)
[2021-04-07] MEDS ORDERED: PANT40 PO (14:38)
[2021-04-07] MEDS ORDERED: HYDR1TAB94 PO (14:38)
--- NOTE | 2021-04-07 16:10 | NUR ---
DISCHARGE INSTRUCTIONS COMPLETED AND DISCUSSED WITH PT EXPRESSING UNDERSTANDING. SCRIPTS FAXED TO [facility]. TO [facility] VIA W/C.
== END 2021-04-07 15:28 | disposition home or self-care (01) | DRG 637 ==
LOC: ER 18:36 → ICUW 21:22 → MEDS 04-04 19:40
PROVIDERS: Emergency Medicine; Family Medicine; Physician Assistant; ADMIT Internal Medicine
DX: E10.10 Type 1 diabetes mellitus with ketoacidosis without coma (principal); J96.01 Acute respiratory failure with hypoxia; J45.901 Unspecified asthma with (acute) exacerbation; E23.0 Hypopituitarism; N17.9 Acute kidney failure, unspecified; E06.3 Autoimmune thyroiditis; E31.0 Autoimmune polyglandular failure; Z20.822 Contact with and (suspected) exposure to COVID-19; J44.9 Chronic obstructive pulmonary disease, unspecified; E87.5 Hyperkalemia; E86.0 Dehydration; I12.9 Hypertensive chronic kidney disease with stage 1 through stage 4 chronic kidney disease, or unspecified chronic kidney disease; E78.5 Hyperlipidemia, unspecified; M81.0 Age-related osteoporosis without current pathological fracture; K21.9 Gastro-esophageal reflux disease without esophagitis; N18.30 Chronic kidney disease, stage 3 unspecified; Z98.890 Other specified postprocedural states; Z87.891 Personal history of nicotine dependence; Z91.14 Patient's other noncompliance with medication regimen; Z79.4 Long term (current) use of insulin; Z79.899 Other long term (current) drug therapy; Z79.01 Long term (current) use of anticoagulants
CPT/HCPCS: 36415; 36600; 71046; 80048; 80053; 81001; 81003; 82010; 82272; 82785; 82803; 82947; 83036; 83605; 83690; 83735; 83880; 84100; 84145; 84484; 85025; 85610; 85730; 87040; 87070; 87205; 93005; 93010; 94640; 94760; 96361; 96365; 96375; 99285-25; A9270; C9113; J0610; J1720; J1815; J2405; J2543; J3010; J3411; J3480; J7030; J7042; J7050; J7120; U0004

== ENCOUNTER 2021-04-12 13:30 | Emergency (ER) | payer MEDICARE, OTHER ==
[~2021-04-12] VITALS: Ht 172.7 cm; Wt 61.2 kg
[~2021-04-12 13:30] MED LIST changes: +BASAGLAR K100 UNIT/1 SC; +ELIQUIS5 M3 PO; +GUAI600T33 PO; +HYDR1TAB94 PO; +Tessalon Perle100 MG PO
[2021-04-12] MEDS ORDERED: Norco 5-325 Ta1 EACH PO (20:13)
== END 2021-04-12 20:44 | disposition home or self-care (01) ==
LOC: ER 13:30
DX: S32.019A Unspecified fracture of first lumbar vertebra, initial encounter for closed fracture (principal); I12.9 Hypertensive chronic kidney disease with stage 1 through stage 4 chronic kidney disease, or unspecified chronic kidney disease; J44.9 Chronic obstructive pulmonary disease, unspecified; E03.9 Hypothyroidism, unspecified; E11.22 Type 2 diabetes mellitus with diabetic chronic kidney disease; N18.30 Chronic kidney disease, stage 3 unspecified; Z79.4 Long term (current) use of insulin; Z79.899 Other long term (current) drug therapy; Z79.01 Long term (current) use of anticoagulants; W18.30XA Fall on same level, unspecified, initial encounter
CPT/HCPCS: 51798; 70450; 72100; 72125; 82947; 99284-25; A9270

== ENCOUNTER 2021-04-24 15:49 | Emergency (ER) | payer MEDICARE, OTHER ==
[~2021-04-24] VITALS: Ht 172.7 cm; Wt 61.2 kg
[~2021-04-24 15:49] MED LIST changes: +Norco 5-325 Ta1 EACH PO
[2021-04-24 16:55] LABS: BASOPHILS ABSOLUTE AUTO 0.05 K/mm3 (0.00-0.23); BASOPHILS PERCENT AUTO 0 % (0-2); EOSINOPHILS ABSOLUTE AUTO 0.37 K/mm3 (0.00-0.68); EOSINOPHILS PERCENT AUTO 3 % (0-6); Hematocrit 36.5 % (37.0-53.0); Hemoglobin 11.5 g/dL (13.5-17.5); IMMATURE GRAN ABSOLUTE AUTO 0.07 K/mm3 (0.00-0.10); IMMATURE GRAN PERCENT AUTO 1 % (0-1); LYMPHOCYTES ABSOLUTE AUTO 1.88 K/mm3 (0.84-5.20); LYMPHOCYTES PERCENT AUTO 13 % (21-46); MONOCYTES ABSOLUTE AUTO 0.77 K/mm3 (0.16-1.47); MONOCYTES PERCENT AUTO 5 % (4-13); Mean Corpuscular HGB 29.7 pg (26.0-34.0); Mean Corpuscular HGB Conc 31.5 g/dL (31.5-36.5); Mean Corpuscular Volume 94 fL (80-100); Mean Platelet Volume 10.9 fL (9.1-12.4); NEUTROPHILS ABSOLUTE AUTO 11.11 K/mm3 (1.96-9.15); NEUTROPHILS PERCENT AUTO 78 % (41-73); Platelet Count 462 K/mm3 (150-400); RDW Standard Deviation 45.1 fL (35.1-46.3); Red Blood Cell Count 3.87 M/mm3 (4.30-5.90); White Blood Cell Count 14.25 K/mm3 (4.00-11.30)
[2021-04-24 17:15] LABS: Albumin, Blood 2.7 g/dL (3.4-5.0); Albumin/Globulin Ratio 0.6 (0.8-1.8); Bilirubin, Total 0.7 mg/dL (0.1-1.0); Bun/Creatinine Ratio 16.3 (12.0-20.0); Calcium, Blood 9.9 mg/dL (8.5-10.1); Creatinine, Blood 2.03 mg/dL (0.60-1.20); Globulin, Blood 4.7 g/dL (2.2-4.0); Potassium, Blood 5.1 mmol/L (3.5-5.5); Total Protein, Blood 7.4 g/dL (6.4-8.2)
[2021-04-24 20:53] LABS: Source, Urine Clean Catch
[2021-04-24 20:55] LABS: Bilirubin, Urine Neg (Neg); Blood, Urine 5+ (Neg); Glucose Qualitative, Urine 4+ (Neg); Ketones, Urine 4+ (Neg); Leukocyte Esterase, Urine Neg (Neg); Nitrite, Urine Neg (Neg); Protein, Urine 1+ (Neg); Urobilinogen, Urine NORM (Normal)
[2021-04-24 20:58] LABS: Appearance, Urine Clear (Clear); Color, Urine Yellow (P-Yellow)
[2021-04-24 21:01] LABS: Bacteria Not Seen /hpf; Red Blood Cells, Urine 25-50 /hpf (0-2); Squamous Epithelial Cells Not Seen /hpf (Few); White Blood Cells, Urine Rare /hpf (0-5)
[2021-04-24] MEDS ORDERED: IMODIUM A-D2 M1 PO (22:37)
[2021-04-24] MEDS ORDERED: ONDA4ODT SL (22:37)
== END 2021-04-24 23:15 | disposition home or self-care (01) ==
LOC: ER 15:49
PROVIDERS: Physician Assistant
DX: R11.2 Nausea with vomiting, unspecified (principal); R19.7 Diarrhea, unspecified; R10.84 Generalized abdominal pain; E10.22 Type 1 diabetes mellitus with diabetic chronic kidney disease; I12.9 Hypertensive chronic kidney disease with stage 1 through stage 4 chronic kidney disease, or unspecified chronic kidney disease; N18.30 Chronic kidney disease, stage 3 unspecified; Z79.4 Long term (current) use of insulin; Z79.899 Other long term (current) drug therapy; Z87.891 Personal history of nicotine dependence
CPT/HCPCS: 36415; 74176; 80053; 81001; 82947; 83690; 85025; 96361; 96374; 96375; 99284-25; A9270; J1815; J2405; J3010; J7120

== ENCOUNTER 2021-04-28 10:22 | Emergency (ER) | payer MEDICARE, OTHER ==
[~2021-04-28] VITALS: Ht 172.7 cm; Wt 57.6 kg
[~2021-04-28 10:22] MED LIST changes: +IMODIUM A-D2 M1 PO; +ONDA4ODT SL
[2021-04-28 11:31] LABS: BASOPHILS ABSOLUTE AUTO 0.05 K/mm3 (0.00-0.23); BASOPHILS PERCENT AUTO 1 % (0-2); EOSINOPHILS ABSOLUTE AUTO 0.73 K/mm3 (0.00-0.68); EOSINOPHILS PERCENT AUTO 7 % (0-6); Hemoglobin 11.7 g/dL (13.5-17.5); IMMATURE GRAN ABSOLUTE AUTO 0.03 K/mm3 (0.00-0.10); IMMATURE GRAN PERCENT AUTO 0 % (0-1); LYMPHOCYTES ABSOLUTE AUTO 1.93 K/mm3 (0.84-5.20); LYMPHOCYTES PERCENT AUTO 19 % (21-46); MONOCYTES ABSOLUTE AUTO 0.83 K/mm3 (0.16-1.47); MONOCYTES PERCENT AUTO 8 % (4-13); Mean Corpuscular HGB Conc 31.6 g/dL (31.5-36.5); Mean Corpuscular Volume 92 fL (80-100); Mean Platelet Volume 11.2 fL (9.1-12.4); NEUTROPHILS ABSOLUTE AUTO 6.85 K/mm3 (1.96-9.15); NEUTROPHILS PERCENT AUTO 66 % (41-73); Platelet Count 454 K/mm3 (150-400); RDW Coefficient Variation 12.7 % (11.7-14.2); RDW Standard Deviation 42.8 fL (35.1-46.3); Red Blood Cell Count 4.04 M/mm3 (4.30-5.90); White Blood Cell Count 10.42 K/mm3 (4.00-11.30)
[2021-04-28 12:01] LABS: Albumin/Globulin Ratio 0.7 (0.8-1.8); Bilirubin, Total 0.4 mg/dL (0.1-1.0); Bun/Creatinine Ratio 14.1 (12.0-20.0); Calcium, Blood 9.5 mg/dL (8.5-10.1); Creatinine, Blood 1.92 mg/dL (0.60-1.20); Globulin, Blood 4.4 g/dL (2.2-4.0); Potassium, Blood 3.7 mmol/L (3.5-5.5); Total Protein, Blood 7.4 g/dL (6.4-8.2)
[2021-04-28 13:51] LABS: Source, Urine Clean Catch
[2021-04-28 13:57] LABS: Appearance, Urine Clear (Clear); Bilirubin, Urine Neg (Neg); Blood, Urine 3+ (Neg); Color, Urine Yellow (P-Yellow); Glucose Qualitative, Urine Neg (Neg); Ketones, Urine Neg (Neg); Leukocyte Esterase, Urine Neg (Neg); Nitrite, Urine Neg (Neg); Protein, Urine 2+ (Neg); Urobilinogen, Urine NORM (Normal)
[2021-04-28 14:10] LABS: Bacteria Few /hpf; Squamous Epithelial Cells Not Seen /hpf (Few); White Blood Cells, Urine 0-2 /hpf (0-5)
== END 2021-04-28 20:14 | disposition home or self-care (01) ==
LOC: ER 10:22
PROVIDERS: Emergency Medicine
DX: E10.649 Type 1 diabetes mellitus with hypoglycemia without coma (principal); J44.9 Chronic obstructive pulmonary disease, unspecified; E03.9 Hypothyroidism, unspecified; E78.5 Hyperlipidemia, unspecified; I12.9 Hypertensive chronic kidney disease with stage 1 through stage 4 chronic kidney disease, or unspecified chronic kidney disease; N18.30 Chronic kidney disease, stage 3 unspecified; E10.22 Type 1 diabetes mellitus with diabetic chronic kidney disease; Z79.01 Long term (current) use of anticoagulants; Z79.4 Long term (current) use of insulin; Z79.899 Other long term (current) drug therapy; Z87.891 Personal history of nicotine dependence
CPT/HCPCS: 36415; 80053; 81001; 82947; 83690; 85025; 99284; A9270; J7030

== ENCOUNTER 2021-05-17 18:11 | Inpatient (IN) | payer MEDICARE, OTHER ==
[~2021-05-17] VITALS: Ht 172.7 cm; Wt 55.6 kg
[2021-05-17 19:06] LABS: BASOPHILS ABSOLUTE AUTO 0.03 K/mm3 (0.00-0.23); BASOPHILS PERCENT AUTO 0 % (0-2); EOSINOPHILS ABSOLUTE AUTO 0.25 K/mm3 (0.00-0.68); EOSINOPHILS PERCENT AUTO 3 % (0-6); Hematocrit 29.7 % (37.0-53.0); Hemoglobin 9.7 g/dL (13.5-17.5); IMMATURE GRAN ABSOLUTE AUTO 0.03 K/mm3 (0.00-0.10); IMMATURE GRAN PERCENT AUTO 0 % (0-1); LYMPHOCYTES ABSOLUTE AUTO 1.34 K/mm3 (0.84-5.20); LYMPHOCYTES PERCENT AUTO 15 % (21-46); MONOCYTES ABSOLUTE AUTO 1.04 K/mm3 (0.16-1.47); MONOCYTES PERCENT AUTO 12 % (4-13); Mean Corpuscular HGB 28.8 pg (26.0-34.0); Mean Corpuscular HGB Conc 32.7 g/dL (31.5-36.5); Mean Corpuscular Volume 88 fL (80-100); Mean Platelet Volume 11.6 fL (9.1-12.4); NEUTROPHILS ABSOLUTE AUTO 6.04 K/mm3 (1.96-9.15); NEUTROPHILS PERCENT AUTO 69 % (41-73); Platelet Count 315 K/mm3 (150-400); RDW Coefficient Variation 13.2 % (11.7-14.2); Red Blood Cell Count 3.37 M/mm3 (4.30-5.90); White Blood Cell Count 8.73 K/mm3 (4.00-11.30)
[2021-05-17 19:17] LABS: Magnesium, Blood 2.3 mg/dL (1.6-2.4)
[2021-05-17 19:20] LABS: Beta-hydroxybutyrate 32.1 mg/dL (0.2-2.8); Troponin I <0.015 ng/mL (0.000-0.040)
[2021-05-17 19:21] LABS: Albumin/Globulin Ratio 0.4 (0.8-1.8); Bilirubin, Total 0.6 mg/dL (0.1-1.0); Bun/Creatinine Ratio 10.1 (12.0-20.0); Calcium, Blood 8.8 mg/dL (8.5-10.1); Creatinine, Blood 4.94 mg/dL (0.60-1.20); Globulin, Blood 4.5 g/dL (2.2-4.0); Potassium, Blood 6.1 mmol/L (3.5-5.5); Total Protein, Blood 6.5 g/dL (6.4-8.2)
[2021-05-17 19:35] LABS: Bicarbonate Venous 18.2 mmol/L (24.0-30.0); PCO2 Venous 32.9 mmHg (38-42); PO2 Venous 130 mmHg (38-42); pH Blood Venous 7.33 (7.34-7.37)
[2021-05-17 19:36] LABS: Base Excess Venous -8.5 mmol/L
[2021-05-17 20:42] LABS: Magnesium, Blood 2.5 mg/dL (1.6-2.4); Phosphorus, Blood 6.4 mg/dL (2.5-4.9)
[2021-05-17 20:47] LABS: Source, Urine Clean Catch
[2021-05-17 20:49] LABS: Bilirubin, Urine Neg (Neg); Blood, Urine 5+ (Neg); Glucose Qualitative, Urine 4+ (Neg); Ketones, Urine 3+ (Neg); Leukocyte Esterase, Urine 1+ (Neg); Nitrite, Urine Neg (Neg); Protein, Urine 2+ (Neg); Urobilinogen, Urine NORM (Normal)
[2021-05-17 20:51] LABS: Appearance, Urine Clear (Clear); Color, Urine Yellow (P-Yellow)
[2021-05-17 20:56] LABS: Bacteria Many /hpf; Squamous Epithelial Cells Few /hpf (Few)
--- NOTE | 2021-05-18 00:29 | NUR ---
05/17/21 PT ADMITTED TO ROOM 310 PER CART FROM ER; PT STOOD, PIVOTED AND TRANSFERRED TO BESIDE WITH INCREASED SOB NOTED AND MUCH DIFFICULTY WITH O2 AT 2L/M VIA NASAL CANNULA APPLIED WITH SATS 98%; REPORT RECEIVED FROM ELIANE BRODERICK.
[2021-05-18 04:44] LABS: BASOPHILS ABSOLUTE AUTO 0.01 K/mm3 (0.00-0.23); BASOPHILS PERCENT AUTO 0 % (0-2); EOSINOPHILS PERCENT AUTO 0 % (0-6); Hematocrit 27.9 % (37.0-53.0); IMMATURE GRAN ABSOLUTE AUTO 0.04 K/mm3 (0.00-0.10); IMMATURE GRAN PERCENT AUTO 1 % (0-1); LYMPHOCYTES ABSOLUTE AUTO 0.64 K/mm3 (0.84-5.20); LYMPHOCYTES PERCENT AUTO 10 % (21-46); MONOCYTES ABSOLUTE AUTO 0.11 K/mm3 (0.16-1.47); MONOCYTES PERCENT AUTO 2 % (4-13); Mean Corpuscular HGB 28.4 pg (26.0-34.0); Mean Corpuscular HGB Conc 32.3 g/dL (31.5-36.5); Mean Corpuscular Volume 88 fL (80-100); Mean Platelet Volume 11.5 fL (9.1-12.4); NEUTROPHILS ABSOLUTE AUTO 5.73 K/mm3 (1.96-9.15); NEUTROPHILS PERCENT AUTO 88 % (41-73); Platelet Count 310 K/mm3 (150-400); RDW Coefficient Variation 13.3 % (11.7-14.2); RDW Standard Deviation 43.6 fL (35.1-46.3); Red Blood Cell Count 3.17 M/mm3 (4.30-5.90); White Blood Cell Count 6.53 K/mm3 (4.00-11.30)
[2021-05-18 06:04] LABS: Albumin/Globulin Ratio 0.5 (0.8-1.8); Bilirubin, Total 0.6 mg/dL (0.1-1.0); Bun/Creatinine Ratio 11.6 (12.0-20.0); Calcium, Blood 8.8 mg/dL (8.5-10.1); Creatinine, Blood 4.13 mg/dL (0.60-1.20); Globulin, Blood 4.3 g/dL (2.2-4.0); Total Protein, Blood 6.3 g/dL (6.4-8.2)
[2021-05-18 06:06] LABS: Potassium, Blood 6.1 mmol/L (3.5-5.5)
--- NOTE | 2021-05-18 06:21 | NUR ---
SHIFT SUMMARY: 70 Y/O MALE RESTED COMFORTABLY ALL SHIFT; PT APPEARS TO BE VERY WEAK AND DECONDITIONED HE DEMONSTRATED MUCH DIFFICULTY TRANSFERRING TO BSC X 1 ASSIST; TELEMETRY REFLECTS NSR; DENIES PAIN OR NAUSEA; K+ 6.1 THIS AM WITH KAXEYALTE ORDERED; ALERT AND ORIENTED X 4; BED ALARM APPLIED, BED LOW POSITION WITH CALL LIGHT AT SIDE.
[2021-05-18 12:57] LABS: Glucose, Blood 518 mg/dL (70-99)
--- NOTE | 2021-05-18 15:54 | NUR ---
Spiritual care visit conducted. Patient is lying in bed and resting but easily awakens to the sound of his name. Patient tells me about what things bring him inspiration and hope. He talks about his memories of suffering in [place], skiing in [place] and his deep spiritual roots into Yazidism and in all that David has done for us. I also talk at length with patient's spouse, Sultana, in the hallway as she discusses her frustration that the patient's two, sons, form [place], [place] can't come in together to see their father because of COVID restrition, about her disappointment because she feels more should be done for the patient medically and then she tells me about the of her previous spouse and how terrible brain cancer was and all she experienced as he in her arms. I provide therapeutitc listening for both the patient and Sultana and prayer and spiritual guidance with the patient. I will continue to remain available to patient and family.
--- NOTE | 2021-05-18 17:04 | NUR ---
ASSUMED CARE AT 1700. REPORT RECEIVED FROM OUTGOING NURSE. NO DISTRESS NOTED. IV INFUSING PER ORDERS. PRESENT AT BEDSIDE. WILL CONT TO MONITOR.
--- NOTE | 2021-05-18 17:30 | NUR ---
CAREGIVER: ROBIN ENRIQUEZ, SPOUSE / PARTNER, DX: HYPOTHYROIDISM, ACUTE EXACERBATION OF COPD, ASTHMA, CKD-STAGE 4, CROHN'S DISEASE, HTN, DM, SEE LIST DME: DM SUPPLIES CCM: NONE HOME HEALTH: NONE UPDATE 05/18/21: PER CHART REVIEW WITH DR. DUENAS, PT. NOT YET APPROPRIATE FOR DISCHARGE. PT RECOMMENDING SNF. DISCUSSED CARE COORDINATION AND DISCHARGE PLANNING WITH PT. ROBIN PRESENT FOR DURING CONVERSATION. BOTH HAVE DECLINED SNF FOR PT. AT THIS TIME DUE TO PREVIOUS EXPERIENCE WITH SNF AND DESIRE FOR PT. TO RETURN HOME SOON POSSIBLE. DISCUSSED RISKS OF RETURNING HOME WITHOUT APPROPRIATE SUPPORT AND BENEFITS OF PT WITHIN REHAB FACILITY. I ADVISED PT. AND ROBIN THAT THEY SHOULD TAKE TIME TO TALK THINGS OVER PRIOR TO MAKING A DECISION. WE ALSO DISCUSSED HH AND WEAVER TIRE CORD CAREGIVER SUPPORT. FINANCIAL CONCERNS WITH HIRING A CAREGIVER. THEY ARE NOT CERTAIN IF THEY WOULD QUALIFY FOR MEDICAID. WE WILL LOOK INTO THIS FURTHER. I ADVISED ROBIN THAT I WOULD REVIEW CHART WITH DR. DUENAS IN THE AM AND CONTACT HER WITH UPDATES AND TO DISCUSS FURTHER. PT. AND ARE AGREEABLE.
--- NOTE | 2021-05-18 18:32 | NUR ---
SHIFT SUMMARY NO ACUTE CHANGES SINCE ASSUMING CARE. PATIENT HAD ANOTHER BM. AT SUPPER TIME, HE REPORTED HE FELT HUNGRY. MEDICATED WITH REGLAN PER EMAR. PATIENT DRANK HIS V8 AND ONE BITE OF BROCCOLI. HE STATES HE WILL WAIT A BIT AND TRY AGAIN. HE IS ALERT AND ORIENTED, ABLE TO MAKE HIS NEEDS KNOWN. BED LOW AND LOCKED, CALL LIGHT WITHIN REACH. WILL CONT TO MONITOR AND REPORT OFF TO NOC RN.
[2021-05-19] LABS: Source, Urine Clean Catch
[2021-05-19 00:05] LABS: Bilirubin, Urine Neg (Neg); Blood, Urine 5+ (Neg); Glucose Qualitative, Urine 3+ (Neg); Ketones, Urine 1+ (Neg); Leukocyte Esterase, Urine Neg (Neg); Nitrite, Urine Neg (Neg); Protein, Urine 2+ (Neg); Urobilinogen, Urine NORM (Normal)
[2021-05-19 00:15] LABS: Appearance, Urine Clear (Clear); Color, Urine Yellow (P-Yellow)
[2021-05-19 00:16] LABS: Bacteria Mod /hpf; Squamous Epithelial Cells Not Seen /hpf (Few); Uric Acid Crystals Many /hpf
[2021-05-19 00:17] LABS: Hyaline Casts 0-2 /lpf (0-2)
[2021-05-19 00:18] LABS: WBC Cast Not Seen /lpf (0)
--- NOTE | 2021-05-19 01:30 | NUR ---
NEW 22G IV PLACED TO L.FA W/IVF RESTARTED UPON DC OF R.AC IV AFTER IT BEGAN TO INFILTRATE.
[2021-05-19 04:32] LABS: Hematocrit 23.1 % (37.0-53.0); Hemoglobin 7.7 g/dL (13.5-17.5)
[2021-05-19 04:51] LABS: Albumin, Blood 1.9 g/dL (3.4-5.0); Anion Gap 10 mmol/L (6-16); Blood Urea Nitrogen 48 mg/dL (8-24); Bun/Creatinine Ratio 15.4 (12.0-20.0); CO2, Blood 26 mmol/L (21-32); Calcium, Blood 8.2 mg/dL (8.5-10.1); Chloride, Blood 103 mmol/L (98-108); Creatinine, Blood 3.11 mg/dL (0.60-1.20); Glomerular Filtration Rate 20 (60-); Glucose, Blood 205 mg/dL (70-99); Magnesium, Blood 2.3 mg/dL (1.6-2.4); Phosphorus, Blood 4.8 mg/dL (2.5-4.9); Potassium, Blood 3.6 mmol/L (3.5-5.5)
--- NOTE | 2021-05-19 05:24 | NUR ---
SUMMARY: PT A/OX2-3 BUT IS FORGETFULL AT TIMES AND REQUIRES OCCASIONAL REMINDERS. HE REMAINS IN DONIS VEST FOR POSSIBLE IMPULSIVITY BUT HAS NO LONGER BEEN COMBATIVE SO X4 SOFT RESTRAINTS WERE DC'D. BED ALARM ON FOR FALL RISK BUT PT HAS MADE NO ATTEMPTS OOB BY SELF. HE'S BEEN ASLEEP MOST OF NOCTE AND AWOKEN PLEASANT AND COOPERATIVE W/CARE, USING HIS CALL LIGHT APPROPRIATE TO SPECIFY NEEDS. URINAL ASSIST PROVIDED PER REQUEST AND ATTENDS CHANGED PRN. TURN SCHEDULE MAINTAINED W/MEPILEX REMAINING C/D/I TO COCCYX. HE'S ON TELEMETRY IN NSR W/1ST DEGREE BLOCK AT 60'S-90'S BPM. PT ON 2L O2 W/SPO2 WNL, RESPS E/U. NO ACUTE CHANGES, VSS/AFEBRILE. WCTM AND REPORT TO DAY RN.
[2021-05-19 05:40] LABS: Sodium, Blood 139 mmol/L (136-145)
--- NOTE | 2021-05-19 05:51 | NUR ---
SUMMARY: PT A/OX4, SPECIFIES NEEDS AND IS PLEASANT/COOPERATIVE W/CARE. HE'S SBA OOB AND CALLS APPROPRIATELY FOR ASSIST. NEW IV PLACED D/T PREVIOUS INFILTRATING AND PT REMAINS ON 1/2 NS W/NA BICARB AT 75 ML/HR. LS ARE CLEAR AND PT TOLERATED RA THIS SHIFT. PT REPORTS MOIST HACKING COUGH AT BASELINE AND REQUESTED TESSALON PERLS PER HOME DOSE. HE STATES MED CAN MAKE HIM "LOOPY AT TIMES" BUT HE REMAINS ORIENTED AND "KNOWS LIMITATIONS" WHEN HE TAKES IT. BED ALARM ON FOR POSSIBLE IMPULSIVITY AND PERLS RECIEVED PER EMAR. PT REMAINS ON TELEMETRY IN NSR AT 60'S BPM. HE DENIED PAIN, NAUSEA AND ALL OTHER COMPLAINTS. NO ACUTE CHANGES, VSS/AFEBRILE. WCTM AND REPORT TO DAY RN.
--- NOTE | 2021-05-19 10:57 | NUR ---
Update 05/19/21: Discussed patient's care with Antony with palliative care. Patient's had mentioned yesterday that his son's were going to be visiting him from [place] today. There was concern that patient's condition has declined over the last several months and that this "might be the last time they will be able to see him." Palliative care will set up a time to meet with family to discuss concerns and planning. Attempted to reach patient's Sultana this am. Left message for her to return call to discuss care.
--- NOTE | 2021-05-19 13:50 | NUR ---
Brief visit this afternoon. Pt up ambulating to the bathroom. Received permission from Pt to call spouse and discuss plan and concerns. Spoke with [place] D/C Vehicle Mechanic Pauline earlier this AM and discussed case. Spoke with Pt's Primary RN Pauline and discussed case. Called and spoke with Dr Crain and discussed case. Modified Barrium ordered for today and potential plan for Pt to D/C home with home health tomorrow. Called and spoke with Pt's spouse Sultana. Provided update and reviewed plan of care. 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 Sultana reports Pt has not had any motivation and spends a significant amount of time sitting and not being active. Educated on the importance of planning for the future and developing multiple plans with PCP as disease process progresses. Continued therapeutic listening. Sultana is requesting Pt's 2 sons be able to visit when they arrive this evening from [place]. Reviewed hospital visitor policy and continued therapeutic listening. Palliative Care will remain available.
--- NOTE | 2021-05-19 15:56 | NUR ---
Spiritual care visit conducted. Patient shares about the early years of raising his kids and sweet that time was for him, how excited he is to see his sons today or tomorrow when they arrive. We also have fairly in depth theological conversations that seem to encorauge the patient. I provide spiritual guidance therapeutic listening and prayer. Patient responds well and shows signs of an elevated mood. I will continue to remain available to patient and family.
--- NOTE | 2021-05-19 17:17 | NUR ---
SHIFT SUMMARY PT AxOx4. PLEASANT AND COOPERATIVE WITH CARE. PT HAD BARIUM SWALLOW STUDY THIS AM. CALLED, AND UPDATED ON PLAN OF CARE. PT REPORTS FEELING BETTER TODAY- APPETITE IS IMPROVED AND STRENGTH IS BETTER. PHYSICAL THERAPY WORKED WITH THE PATIENT. CURRENT PLAN IS FOR PATIENT TO CONTINUE WORKING ON REGAINING STRENGTH AND INCREASING EATING/DRINKING. PT VITALS REVIEWED. PT IS CURRENTLY RESTING IN CHAIR WITH CALL LIGHT IN REACH. DENIES ANY FURTHER NEEDS AT THIS TIME.
--- NOTE | 2021-05-20 03:27 | NUR ---
SHIFT SUMMARY NO ACUTE CHANGES TO REPORT THIS SHIFT, PT HAS NO COMPLAINTS OF N/V THIS SHIFT. HE DENIES PAIN. RESP ARE E/U ON RA. CHRONIC, HARSH HACKING COUGH TESSALON PEARLS GIVEN PER ORDERS PER PAITENT REQUEST. PT 1 PA TO THE BATHROOM, VITALS STABLE. A/OX4, MAKES NEEDS KNOWN. POSSIBLE DC TODAY. BED IN LOWEST POSITION, CALL LIGHT WITHIN REACH.
[2021-05-20 05:08] LABS: Albumin, Blood 2.1 g/dL (3.4-5.0); Anion Gap 5 mmol/L (6-16); Blood Urea Nitrogen 36 mg/dL (8-24); Bun/Creatinine Ratio 17.2 (12.0-20.0); CO2, Blood 31 mmol/L (21-32); Calcium, Blood 7.9 mg/dL (8.5-10.1); Chloride, Blood 105 mmol/L (98-108); Creatinine, Blood 2.09 mg/dL (0.60-1.20); Glomerular Filtration Rate 31 (60-); Glucose, Blood 147 mg/dL (70-99); Magnesium, Blood 2.1 mg/dL (1.6-2.4); Potassium, Blood 2.9 mmol/L (3.5-5.5); Sodium, Blood 141 mmol/L (136-145)
--- NOTE | 2021-05-20 05:39 | NUR ---
POTASSIUM 2.9 POTASSIUM 2.9 TODAY, DR. ATWOOD CALLED AND NOTIFIED. RECEIVED ORDER FOR POTASSIUM 20 MEQ PO.
--- NOTE | 2021-05-20 11:49 | NUR ---
Update 05/20/21: Per chart review with Dr. Crain, pt. has potential to D/C today or tomorrow. He is consulting with Dr. Espino regarding care. Pt. and nurse advised. [facility] will be contacting pt. and to discuss HH further. I have attempted this morning to contact . No voicemail and did not answer. I will talk with pt. regarding HH and discharge. Family will be providing transportation at time of discharge and picking up prescriptions. Met with Gabby from [facility] and pt. to discuss HH. Pt. states that he is feeling much better and declines HHC. We did explain that insurance would cover the cost as long as he met the criteria, which we felt he did. Pt. again declined. Risks of discharging without HH explained. Benefit of HH explained. Again declined. Pt. was advised that he can contact his PCP at anytime if he changes his mind. Pt. agreeable, and states that he is feeling better and does not plan to be home bound long. Notified Dr. Crain of patients decision. I have attempted several time to reach patient's regarding care without success. Pt. is scheduled for a hospital F/U appointment with Dr. Weems on 05/26/21 at 4:20 pm. Letter given to pt. with appointment information and [facility] discharge details including direct triage line to call if he has questions or concerns post discharge. Pt. denied any concerns with mobility or safety at home. He believes that he can perform ADLs safely and denied need for DME.
[2021-05-20] MEDS ORDERED: METO10 PO (17:50)
--- NOTE | 2021-05-20 19:23 | NUR ---
PT DC'D 1909, W/C ESCORT TO PIRVATE CAR. DC INSTRUCTIONS RECEIVED. SENT HOME WITH BELONGINGS
== END 2021-05-20 19:14 | disposition home or self-care (01) | DRG 683 ==
LOC: ER 18:11 → MEDS 22:05
PROVIDERS: Family Medicine; Internal Medicine Nephrology; Nurse Practitioner Acute Care; Student in an Organized Health Care Education/Training Program; ADMIT Internal Medicine
DX: N17.9 Acute kidney failure, unspecified (principal); K50.90 Crohn's disease, unspecified, without complications; E87.2 Acidosis; E27.40 Unspecified adrenocortical insufficiency; E87.1 Hypo-osmolality and hyponatremia; E10.65 Type 1 diabetes mellitus with hyperglycemia; E10.22 Type 1 diabetes mellitus with diabetic chronic kidney disease; E86.0 Dehydration; T38.0X5A Adverse effect of glucocorticoids and synthetic analogues, initial encounter; E87.5 Hyperkalemia; E78.5 Hyperlipidemia, unspecified; J44.9 Chronic obstructive pulmonary disease, unspecified; N18.30 Chronic kidney disease, stage 3 unspecified; I12.9 Hypertensive chronic kidney disease with stage 1 through stage 4 chronic kidney disease, or unspecified chronic kidney disease; Z98.890 Other specified postprocedural states; E03.9 Hypothyroidism, unspecified; E10.51 Type 1 diabetes mellitus with diabetic peripheral angiopathy without gangrene
CPT/HCPCS: 36415; 71045; 74220; 76770; 80053; 80069; 81001; 82010; 82550; 82803; 82947; 83735; 84100; 84132; 84484; 85014; 85018; 85025; 87086; 93005; 93010; 94640; 94664; 94667; 94668; 94760; 96361; 96374; 96375; 97116; 97162; 97165; 97530; 99285-25; A9270; J0881; J1720; J1815; J2405; J2765; J7030; J7070; J7120; J7799

== ENCOUNTER 2021-06-03 15:57 | Inpatient (IN) | payer MEDICARE, OTHER ==
[~2021-06-03] VITALS: Ht 167.6 cm; Wt 57.1 kg
[~2021-06-03 15:57] MED LIST changes: +ELIQUIS5 M2 PO; -ELIQUIS5 M3 PO; +METO10 PO
[2021-06-03 17:02] LABS: BASOPHILS ABSOLUTE AUTO 0.03 K/mm3 (0.00-0.23); BASOPHILS PERCENT AUTO 0 % (0-2); EOSINOPHILS ABSOLUTE AUTO 0.81 K/mm3 (0.00-0.68); EOSINOPHILS PERCENT AUTO 7 % (0-6); Hematocrit 34.9 % (37.0-53.0); Hemoglobin 11.2 g/dL (13.5-17.5); IMMATURE GRAN ABSOLUTE AUTO 0.06 K/mm3 (0.00-0.10); IMMATURE GRAN PERCENT AUTO 1 % (0-1); LYMPHOCYTES ABSOLUTE AUTO 1.92 K/mm3 (0.84-5.20); LYMPHOCYTES PERCENT AUTO 16 % (21-46); MONOCYTES ABSOLUTE AUTO 1.34 K/mm3 (0.16-1.47); MONOCYTES PERCENT AUTO 11 % (4-13); Mean Corpuscular HGB 28.6 pg (26.0-34.0); Mean Corpuscular HGB Conc 32.1 g/dL (31.5-36.5); Mean Corpuscular Volume 89 fL (80-100); Mean Platelet Volume 11.7 fL (9.1-12.4); NEUTROPHILS ABSOLUTE AUTO 8.25 K/mm3 (1.96-9.15); NEUTROPHILS PERCENT AUTO 67 % (41-73); Platelet Count 381 K/mm3 (150-400); RDW Coefficient Variation 14.9 % (11.7-14.2); RDW Standard Deviation 49.1 fL (35.1-46.3); Red Blood Cell Count 3.92 M/mm3 (4.30-5.90); White Blood Cell Count 12.41 K/mm3 (4.00-11.30)
[2021-06-03 17:23] LABS: Albumin, Blood 2.5 g/dL (3.4-5.0); Albumin/Globulin Ratio 0.6 (0.8-1.8); Bilirubin, Total 1.1 mg/dL (0.1-1.0); Bun/Creatinine Ratio 14.5 (12.0-20.0); Calcium, Blood 9.2 mg/dL (8.5-10.1); Creatinine, Blood 2.21 mg/dL (0.60-1.20); Potassium, Blood 4.2 mmol/L (3.5-5.5); Total Protein, Blood 6.5 g/dL (6.4-8.2)
[2021-06-03 18:18] LABS: Source, Urine Catheter
[2021-06-03 18:22] LABS: Bilirubin, Urine Neg (Neg); Blood, Urine 5+ (Neg); Color, Urine Yellow (P-Yellow); Glucose Qualitative, Urine 3+ (Neg); Ketones, Urine 3+ (Neg); Leukocyte Esterase, Urine 1+ (Neg); Nitrite, Urine Neg (Neg); Protein, Urine 2+ (Neg); Urobilinogen, Urine NORM (Normal)
[2021-06-03 18:37] LABS: Appearance, Urine Hazy (Clear)
[2021-06-03 18:40] LABS: Bacteria Mod /hpf; Red Blood Cells, Urine 25-50 /hpf (0-2); Squamous Epithelial Cells Rare /hpf (Few)
[2021-06-03] MEDS ORDERED: BASAGLAR K100 UNIT/1 SC (19:45)
[2021-06-03] MEDS ORDERED: CALCITONIN-SAL3.7 M5 (19:53)
[2021-06-04 05:11] LABS: BASOPHILS ABSOLUTE AUTO 0.03 K/mm3 (0.00-0.23); BASOPHILS PERCENT AUTO 0 % (0-2); EOSINOPHILS ABSOLUTE AUTO 0.48 K/mm3 (0.00-0.68); EOSINOPHILS PERCENT AUTO 3 % (0-6); Hematocrit 36.8 % (37.0-53.0); Hemoglobin 11.3 g/dL (13.5-17.5); IMMATURE GRAN ABSOLUTE AUTO 0.07 K/mm3 (0.00-0.10); IMMATURE GRAN PERCENT AUTO 1 % (0-1); LYMPHOCYTES ABSOLUTE AUTO 1.95 K/mm3 (0.84-5.20); LYMPHOCYTES PERCENT AUTO 13 % (21-46); MONOCYTES PERCENT AUTO 4 % (4-13); Mean Corpuscular HGB 28.5 pg (26.0-34.0); Mean Corpuscular HGB Conc 30.7 g/dL (31.5-36.5); Mean Corpuscular Volume 93 fL (80-100); Mean Platelet Volume 11.8 fL (9.1-12.4); NEUTROPHILS PERCENT AUTO 79 % (41-73); Platelet Count 339 K/mm3 (150-400); RDW Coefficient Variation 14.9 % (11.7-14.2); RDW Standard Deviation 51.9 fL (35.1-46.3); Red Blood Cell Count 3.97 M/mm3 (4.30-5.90); White Blood Cell Count 14.53 K/mm3 (4.00-11.30)
[2021-06-04 05:42] LABS: Albumin, Blood 2.2 g/dL (3.4-5.0); Albumin/Globulin Ratio 0.6 (0.8-1.8); Bilirubin, Total 0.7 mg/dL (0.1-1.0); Bun/Creatinine Ratio 14.8 (12.0-20.0); Calcium, Blood 8.8 mg/dL (8.5-10.1); Creatinine, Blood 2.16 mg/dL (0.60-1.20); Globulin, Blood 3.8 g/dL (2.2-4.0); Potassium, Blood 5.6 mmol/L (3.5-5.5)
--- NOTE | 2021-06-04 06:00 | NUR ---
SHIFT SUMMARY PATIENT ARRIVED TO ROOM 348 VIA STRETCHER AT 2155. HE WAS ALERT AND ORIENTED X3 UPON ADMIT. NO COMPLAINTS OF PAIN. BECAME INCREASINGLY CONFUSED OVERNIGHT, NOTED TO HAVE SHORTNESS OF BREATH ON EXHERTION AND CHILLS, TEMP SPIKED AT 103.3 AND PATIENT VOMITED. PATIENT MEDICATED WITH TYLENOL, HEAT TURNED OFF IN ROOM, BLANKETS REMOVED, AND ICE PACKS APPLIED TO NECK, ARMPITS, AND GROIN, TEMP HAD REDUCED TO 101.3. PATIENT IS LESS CONFUSED NOW WELL. WILL CONTINUE TO MONITOR. IV PATENT AND FLUSHED. BED IN LOWEST POSITION WITH WHEELS LOCKED AND ALARM ON. CALL LIGHT WITHIN REACH. REPORT GIVEN TO ONCOMING RN.
--- NOTE | 2021-06-04 12:01 | NUR ---
Echocardiogram performed.
--- NOTE | 2021-06-04 17:58 | NUR ---
PT HAS AT BEDSIDE. REPORTED NO PAIN, HAS CROUPY COUGH THAT PER HAS BEEN GOING ON FOR 15 MONTHS. PT HAS SLEPT MOST OF THE SHIFT. CBG'S REMAIN ELEVATED, DOCTOR NOTIFIED. PT ON SOLUMEDROL. PT AND OT WORKED WITH PT THIS SHIFT. PT ON ABX PER EMAR. CALL LIGHT WITHIN REACH. [facility]
--- NOTE | 2021-06-04 20:47 | NUR ---
PHYSICIAN COMMUNICATION CONTACTED COMPUTER PROGRAMMER CHIEF PHYSICIAN, DR MARTINEZ, TO NOTIFY HIM THAT THE PATIENT HAD A BLOOD SUGAR OF 446 AND DIDN'T HAVE ANY EVENING COVERAGE ORDERED. DR MARTINEZ ORDERED FOR 6 UNITS HUMALOG TO BE GIVEN AND TO RECHECK THE BLOOD SUGAR IN TWO HOURS.
--- NOTE | 2021-06-05 05:49 | NUR ---
SHIFT SUMMARY PATIENT ALERT AND ORIENTED X3. HAS INTERMITTENT CONFUSION. REQUIRED AN EXTRA DOSE OF HUMALOG BEFORE BED DUE TO HAVING A BLOOD SUGAR OF 446. BLOOD SUGAR RECHECKED AND RESPONDED TO THE INSULIN DOSE. PATIENT SLEPT WELL OVERNIGHT. IV PATENT AND FLUSHED. BED IN LOWEST POSITION WITH WHEELS LOCKED AND ALARM ON. CALL LIGHT WITHIN REACH. REPORT GIVEN TO ONCOMING RN.
[2021-06-05 06:03] LABS: BASOPHILS ABSOLUTE AUTO 0.01 K/mm3 (0.00-0.23); BASOPHILS PERCENT AUTO 0 % (0-2); EOSINOPHILS ABSOLUTE AUTO 0.06 K/mm3 (0.00-0.68); EOSINOPHILS PERCENT AUTO 1 % (0-6); Hematocrit 28.1 % (37.0-53.0); Hemoglobin 9.1 g/dL (13.5-17.5); IMMATURE GRAN ABSOLUTE AUTO 0.08 K/mm3 (0.00-0.10); IMMATURE GRAN PERCENT AUTO 1 % (0-1); LYMPHOCYTES ABSOLUTE AUTO 0.38 K/mm3 (0.84-5.20); LYMPHOCYTES PERCENT AUTO 3 % (21-46); MONOCYTES ABSOLUTE AUTO 0.21 K/mm3 (0.16-1.47); MONOCYTES PERCENT AUTO 2 % (4-13); Mean Corpuscular HGB 28.7 pg (26.0-34.0); Mean Corpuscular HGB Conc 32.4 g/dL (31.5-36.5); Mean Corpuscular Volume 89 fL (80-100); Mean Platelet Volume 11.9 fL (9.1-12.4); NEUTROPHILS ABSOLUTE AUTO 12.09 K/mm3 (1.96-9.15); NEUTROPHILS PERCENT AUTO 94 % (41-73); Platelet Count 304 K/mm3 (150-400); RDW Coefficient Variation 14.6 % (11.7-14.2); RDW Standard Deviation 47.8 fL (35.1-46.3); Red Blood Cell Count 3.17 M/mm3 (4.30-5.90); White Blood Cell Count 12.83 K/mm3 (4.00-11.30)
[2021-06-05 06:25] LABS: Bun/Creatinine Ratio 14.9 (12.0-20.0); Calcium, Blood 8.8 mg/dL (8.5-10.1); Creatinine, Blood 2.28 mg/dL (0.60-1.20); Free Thyroxine 1.24 ng/dL (0.70-1.60); Potassium, Blood 5.1 mmol/L (3.5-5.5); Thyroid Stimulating Hormone 3.09 uIU/mL (0.360-4.800)
[2021-06-05] MEDS ORDERED: Tessalon200 MG PO (11:23)
[2021-06-05] MEDS ORDERED: FISH OIL 1,2001 EAC7 PO (11:29)
[2021-06-05] MEDS ORDERED: GUAI600T33 PO (11:31)
[2021-06-05] MEDS ORDERED: LOPE2C PO (11:34)
[2021-06-05] MEDS ORDERED: ONDA4ODT PO (11:35)
[2021-06-05] MEDS ORDERED: METO10 PO (11:35)
[2021-06-05] MEDS ORDERED: C COMPLEX1000 M1 PO (11:38)
--- NOTE | 2021-06-05 13:40 | NUR ---
Spiritual care visit conducted. Patient is sitting up in bed and alert. Patient tells me that he has no idea why he is in the hospital or what the plan is with him. He does explain that he has Chronic Kidney Disease. He talks about his 190 lb Dog and how loving both his dogs are. He also shares stories about the things of nature and love fill and inspire him. I reinforce helpful attitudes and provide therapeutic listening, spiritual guidance and companionship. Patient responds well and shows signs of an elevated mood.
--- NOTE | 2021-06-05 17:59 | NUR ---
SHIFT SUMMARY PT AXO, THOUGH FORGETFUL BUT PLEASANT AND COOPERATIVE WITH CARE. AMBULATES WITH FWW AND GB WITH 1 ASSIT. VSS. NO ACUTE CHANGES THIS SHIFT. PT DENIES PAIN, SOB AND NV. BED IN LOW POSITION, CALL LIGHT WITHIN REACH. ASSESSED BY PHYSICAL AND OCCUPATIONAL THERAPY, SEE NOTES. NEW IV THIS SHIFT, PATENT AND SALINE LOCKED. SEE CGB AND EMAR.
--- NOTE | 2021-06-06 05:16 | NUR ---
SUMMARY PT HAD NO NEW ISSUES NOTED. PT SLEPT OFF AND ON T/O SHIFT. PT HAS VOICED CONCERN THAT HE IS NOT GETTING ENOUGH INSULIN COVERAGE. WILL PASS ON TO DAY RN. PT CURRENTLY SLEEPING IN NO DISTRESS. CALL LIGHT IN REACH.
[2021-06-06 05:31] LABS: BASOPHILS ABSOLUTE AUTO 0.01 K/mm3 (0.00-0.23); BASOPHILS PERCENT AUTO 0 % (0-2); EOSINOPHILS ABSOLUTE AUTO 0.09 K/mm3 (0.00-0.68); EOSINOPHILS PERCENT AUTO 1 % (0-6); Hematocrit 25.7 % (37.0-53.0); Hemoglobin 8.2 g/dL (13.5-17.5); IMMATURE GRAN ABSOLUTE AUTO 0.08 K/mm3 (0.00-0.10); IMMATURE GRAN PERCENT AUTO 1 % (0-1); LYMPHOCYTES ABSOLUTE AUTO 0.72 K/mm3 (0.84-5.20); LYMPHOCYTES PERCENT AUTO 6 % (21-46); MONOCYTES ABSOLUTE AUTO 0.41 K/mm3 (0.16-1.47); MONOCYTES PERCENT AUTO 3 % (4-13); Mean Corpuscular HGB 28.1 pg (26.0-34.0); Mean Corpuscular HGB Conc 31.9 g/dL (31.5-36.5); Mean Corpuscular Volume 88 fL (80-100); Mean Platelet Volume 11.9 fL (9.1-12.4); NEUTROPHILS PERCENT AUTO 90 % (41-73); Platelet Count 286 K/mm3 (150-400); RDW Standard Deviation 48.1 fL (35.1-46.3); Red Blood Cell Count 2.92 M/mm3 (4.30-5.90); White Blood Cell Count 13.01 K/mm3 (4.00-11.30)
[2021-06-06 05:51] LABS: Bun/Creatinine Ratio 21.7 (12.0-20.0); Calcium, Blood 8.9 mg/dL (8.5-10.1); Creatinine, Blood 2.12 mg/dL (0.60-1.20); Potassium, Blood 4.1 mmol/L (3.5-5.5)
--- NOTE | 2021-06-06 12:09 | NUR ---
PT TRANSFERRED FROM ROOM 348 TO 326. PT IN THE ROOM. BED ALARM IS ON. REPORT RECEIVED FROM SCOOBY
--- NOTE | 2021-06-06 16:54 | NUR ---
SHIFT SUMMARY PT AOX3; CALLS APPROPRIATELY. PT DENIES ANY PAIN OR SOB. SATS ABOVE 90S. PT 1P ASSIST WITH FWW. BED IS IN THE LOWEST POSITION AND CALL LIGHT WITHIN REACH.
[2021-06-07 05:51] LABS: BASOPHILS ABSOLUTE AUTO 0.02 K/mm3 (0.00-0.23); BASOPHILS PERCENT AUTO 0 % (0-2); EOSINOPHILS ABSOLUTE AUTO 0.21 K/mm3 (0.00-0.68); EOSINOPHILS PERCENT AUTO 2 % (0-6); Hemoglobin 8.1 g/dL (13.5-17.5); IMMATURE GRAN ABSOLUTE AUTO 0.02 K/mm3 (0.00-0.10); IMMATURE GRAN PERCENT AUTO 0 % (0-1); LYMPHOCYTES ABSOLUTE AUTO 1.37 K/mm3 (0.84-5.20); LYMPHOCYTES PERCENT AUTO 15 % (21-46); MONOCYTES ABSOLUTE AUTO 0.55 K/mm3 (0.16-1.47); MONOCYTES PERCENT AUTO 6 % (4-13); Mean Corpuscular HGB 28.4 pg (26.0-34.0); Mean Corpuscular HGB Conc 32.4 g/dL (31.5-36.5); Mean Corpuscular Volume 88 fL (80-100); Mean Platelet Volume 11.9 fL (9.1-12.4); NEUTROPHILS ABSOLUTE AUTO 7.06 K/mm3 (1.96-9.15); NEUTROPHILS PERCENT AUTO 77 % (41-73); Platelet Count 258 K/mm3 (150-400); RDW Coefficient Variation 15.5 % (11.7-14.2); RDW Standard Deviation 50.3 fL (35.1-46.3); Red Blood Cell Count 2.85 M/mm3 (4.30-5.90); White Blood Cell Count 9.23 K/mm3 (4.00-11.30)
[2021-06-07 06:06] LABS: Bun/Creatinine Ratio 24.4 (12.0-20.0); Calcium, Blood 8.6 mg/dL (8.5-10.1); Creatinine, Blood 1.76 mg/dL (0.60-1.20); Potassium, Blood 3.8 mmol/L (3.5-5.5)
--- NOTE | 2021-06-07 06:27 | NUR ---
a+o, up with sba to bathrm, called every time and waited in bed until help arrived, stated william worked well on cough, denied productive, will continue to monitor and treat until share bsr with noc nurse and pt, on rm air and saline locked
[2021-06-07] MEDS ORDERED: AMOX875 PO (12:26)
--- NOTE | 2021-06-07 14:14 | NUR ---
DISCHARGE SUMMARY PT AXO, PLEASANT AND COOPERATIVE WITH CARE. DISCHARGED TO HOME. LEFT ROOM PRIOR TO THIS NOTE WITH SPOUSE PRESENT VIA WHEELCHAIR AND SALES TRADER ESCORT. IV DC'D AND BELONGINGS RETURNED. PT EDUCATED ON ALL DC INSTRUCTIONS, ALL QUESTIONS ANSWERED. PT AGREES TO FOLLOW UP WITH PCP AND LAB WITHIN 1-2 DAYS.
--- NOTE | 2021-06-07 15:35 | NUR ---
HYPOGLYCEMIA PROTOCOL FOLLOWED AT 0725 PATIENT ALERTED THIS NURSE TO FEELING LIKE HE "NEEDED (HIS) BLOOD SUGAR CHECKED." AT 0726 CBG WAS 48. HYPOGLYCEMIA PROTOCOL INDICATED 8OZ APPLE JUICE AND THEN THIS NURSE ALSO GAVE A STRING CHEESE. PT STATED HIS ONLY SYMPTOM AT THE TIME WAS CHANGE IN VISION. AT 0741 CBG WAS 60. PT STATED AT THAT TIME HE DIDNT NEED ANYTHING ELSE TO EAT AND THAT HE WOULS WAIT FOR DINNER. CBG RECHECKED BREAKFAST TRAY WAS BEING DELIVERED AT [address] HARDY NOTIFIED AT 0747 WHO ADJUSTED INSULIN ORDERS AND DESPITE LOW CBG THIS AM, TO DOSE INSULIN BASED ON CARBOHYDRATE INTAKE, PER EMAR.
== END 2021-06-07 13:51 | disposition home or self-care (01) | DRG 872 ==
LOC: ER 15:57 → MEDS 15:58
PROVIDERS: Family Medicine; Physician Assistant; Student in an Organized Health Care Education/Training Program; ADMIT Internal Medicine
DX: A41.81 Sepsis due to Enterococcus (principal); N17.9 Acute kidney failure, unspecified; N39.0 Urinary tract infection, site not specified; E23.0 Hypopituitarism; E27.40 Unspecified adrenocortical insufficiency; K50.90 Crohn's disease, unspecified, without complications; Z68.1 Body mass index [BMI] 19.9 or less, adult; R65.20 Severe sepsis without septic shock; J44.9 Chronic obstructive pulmonary disease, unspecified; E10.22 Type 1 diabetes mellitus with diabetic chronic kidney disease; Z20.822 Contact with and (suspected) exposure to COVID-19; I12.9 Hypertensive chronic kidney disease with stage 1 through stage 4 chronic kidney disease, or unspecified chronic kidney disease; E31.0 Autoimmune polyglandular failure; E78.5 Hyperlipidemia, unspecified; N18.30 Chronic kidney disease, stage 3 unspecified; E06.3 Autoimmune thyroiditis; E10.21 Type 1 diabetes mellitus with diabetic nephropathy; D63.1 Anemia in chronic kidney disease; E86.0 Dehydration; E10.65 Type 1 diabetes mellitus with hyperglycemia; Z98.890 Other specified postprocedural states; Z79.4 Long term (current) use of insulin; Z87.891 Personal history of nicotine dependence; Z79.01 Long term (current) use of anticoagulants; Z79.899 Other long term (current) drug therapy; Z91.81 History of falling
CPT/HCPCS: 36415; 71045; 74176; 80048; 80053; 81001; 82010; 82947; 83605; 83880; 84439; 84443; 85025; 87040; 87077; 87086; 87186; 93005; 93010; 93306; 94640; 94664; 94760; 96365; 96375; 97110; 97116; 97161; 97165; 97530; 97535; 99285-25; A9270; G0378; J0696; J1720; J7030; J7050; J7120

== ENCOUNTER 2021-06-25 12:55 | Inpatient (IN) | payer MEDICARE, OTHER ==
[~2021-06-25] VITALS: Ht 172.7 cm; Wt 53.8 kg
[~2021-06-25 12:55] MED LIST changes: +AMOX875 PO; +C COMPLEX1000 M1 PO; +CALCITONIN-SAL3.7 M5; +FISH OIL 1,2001 EAC7 PO; +LOPE2C PO; +ONDA4ODT PO; +Tessalon200 MG PO
[2021-06-25 13:37] LABS: BASOPHILS ABSOLUTE AUTO 0.02 K/mm3 (0.00-0.23); BASOPHILS PERCENT AUTO 0 % (0-2); EOSINOPHILS ABSOLUTE AUTO 0.65 K/mm3 (0.00-0.68); EOSINOPHILS PERCENT AUTO 5 % (0-6); Hematocrit 30.6 % (37.0-53.0); Hemoglobin 9.7 g/dL (13.5-17.5); IMMATURE GRAN ABSOLUTE AUTO 0.06 K/mm3 (0.00-0.10); IMMATURE GRAN PERCENT AUTO 0 % (0-1); LYMPHOCYTES ABSOLUTE AUTO 2.27 K/mm3 (0.84-5.20); LYMPHOCYTES PERCENT AUTO 17 % (21-46); MONOCYTES ABSOLUTE AUTO 1.38 K/mm3 (0.16-1.47); MONOCYTES PERCENT AUTO 10 % (4-13); Mean Corpuscular HGB 27.8 pg (26.0-34.0); Mean Corpuscular HGB Conc 31.7 g/dL (31.5-36.5); Mean Corpuscular Volume 88 fL (80-100); Mean Platelet Volume 11.9 fL (9.1-12.4); NEUTROPHILS ABSOLUTE AUTO 9.38 K/mm3 (1.96-9.15); NEUTROPHILS PERCENT AUTO 68 % (41-73); Platelet Count 300 K/mm3 (150-400); RDW Coefficient Variation 16.7 % (11.7-14.2); RDW Standard Deviation 54.8 fL (35.1-46.3); Red Blood Cell Count 3.49 M/mm3 (4.30-5.90); White Blood Cell Count 13.76 K/mm3 (4.00-11.30)
[2021-06-25 13:50] LABS: Albumin, Blood 2.1 g/dL (3.4-5.0); Albumin/Globulin Ratio 0.6 (0.8-1.8); Bilirubin, Total 0.8 mg/dL (0.1-1.0); Bun/Creatinine Ratio 7.9 (12.0-20.0); Creatinine, Blood 4.31 mg/dL (0.60-1.20); Globulin, Blood 3.8 g/dL (2.2-4.0); Potassium, Blood 4.3 mmol/L (3.5-5.5); Total Protein, Blood 5.9 g/dL (6.4-8.2)
[2021-06-25 14:24] LABS: Source, Urine Clean Catch
[2021-06-25 14:34] LABS: Appearance, Urine Hazy (Clear); Blood, Urine 4+ (Neg); Color, Urine Yellow (P-Yellow); Glucose Qualitative, Urine 4+ (Neg); Ketones, Urine 1+ (Neg); Leukocyte Esterase, Urine 1+ (Neg); Nitrite, Urine Neg (Neg); Protein, Urine 2+ (Neg); Specific Gravity, Urine 1.025 (1.003-1.022); Urobilinogen, Urine NORM (Normal)
[2021-06-25 14:35] LABS: Bilirubin, Urine 1+ (Neg)
[2021-06-25 14:45] LABS: Bacteria Many /hpf
[2021-06-25 14:46] LABS: Squamous Epithelial Cells Few /hpf (Few)
[2021-06-25] MEDS ORDERED: SYNTHROID50 MC1 PO (16:03)
--- NOTE | 2021-06-25 18:26 | NUR ---
END OF SHIFT SUMMARY: PATIENT ARRIVED TO UNIT VIA STRETCHER. ABLE TO SLOWLY TRANSFER FROM STRETCHER TO BED. PATIENT NEEDED TO UTILIZE BOTH TO TRANSFER. PATIENT STEADY AND SLOW ON HIS FEET. PATIENT IS ALERT AND ORIENTED WITH SOME FORGETFULNESS. PATIENT ANSWERS SLOWLY AND QUIETLY. PATIENT DENIES PAIN OR DIFFICULTY BREATHING. PATIENT HAS A RASPY NON-PRODUCTIVE COUGH. PATIENT REPORTS THAT HE HAS HAD DIFFICULTY BREATHING. NEW ORDER FOR SLEEP AID OBTAINED FROM DOCTOR KAITLYN. PATIENT REPORTS GENERAL MALAISE AND LACK OF APPETITE. PATIENT DID NOT HAVE ANY INTEREST IN HIS RENAL DINNER. PROVIDED WITH A POPSICLE.
--- NOTE | 2021-06-26 03:30 | NUR ---
SHIFT SUMMARY PT VERY LETHARGIC AT START OF SHIFT. WOULD WAKE TO VERBAL STIMULI BUT WOULD QUICKLY FALL BACK ASLEEP. TRAZADONE HELD. PT WOKE AT APPROX 0300 AND WAS WIDE AWAKE. HAD DIFFICULTY GETTING BACK TO SLEEP. PT DID NOT REMEMBER EARLIER IN SHIFT. PT INTERMITTENTLY CONFUSED. ATTEMPTED TO URINATE ON THE FLOOR AT ONE TIME AND WOULD ASK, "HOW LONG HAVE I BEEN IN THE HOSPITAL". MENTATION APPEARS MORE CLEAR THIS AM. CBG FOR MIDNIGHT SCHEDULED SLIDING SCALE WAS 302, 4 UNITS HUMULIN GIVEN PER ORDERS. PT APPEARS VERY MALNOURISHED. REPORTS THAT HE HAS DIFFICULTY WITH APPETITE. SLOW MOVING BUT STEADY ON HIS FEET. SBA TO RESTROOM. VOIDING WELL. VITAL SIGNS STABLE. DENIED NAUSEA OR PAIN THIS EVENING. BED ALARM ON THROUGHOUT THE NIGHT. WILL CONTINUE TO MONITOR.
[2021-06-26 05:47] LABS: BASOPHILS ABSOLUTE AUTO 0.01 K/mm3 (0.00-0.23); BASOPHILS PERCENT AUTO 0 % (0-2); EOSINOPHILS ABSOLUTE AUTO 0.65 K/mm3 (0.00-0.68); EOSINOPHILS PERCENT AUTO 6 % (0-6); Hematocrit 28.8 % (37.0-53.0); Hemoglobin 9.2 g/dL (13.5-17.5); IMMATURE GRAN ABSOLUTE AUTO 0.04 K/mm3 (0.00-0.10); IMMATURE GRAN PERCENT AUTO 0 % (0-1); LYMPHOCYTES ABSOLUTE AUTO 0.54 K/mm3 (0.84-5.20); LYMPHOCYTES PERCENT AUTO 5 % (21-46); MONOCYTES ABSOLUTE AUTO 0.33 K/mm3 (0.16-1.47); MONOCYTES PERCENT AUTO 3 % (4-13); Mean Corpuscular HGB 28.3 pg (26.0-34.0); Mean Corpuscular HGB Conc 31.9 g/dL (31.5-36.5); Mean Corpuscular Volume 89 fL (80-100); Mean Platelet Volume 11.9 fL (9.1-12.4); NEUTROPHILS ABSOLUTE AUTO 8.66 K/mm3 (1.96-9.15); NEUTROPHILS PERCENT AUTO 85 % (41-73); Platelet Count 261 K/mm3 (150-400); RDW Coefficient Variation 16.6 % (11.7-14.2); RDW Standard Deviation 54.4 fL (35.1-46.3); Red Blood Cell Count 3.25 M/mm3 (4.30-5.90); White Blood Cell Count 10.23 K/mm3 (4.00-11.30)
[2021-06-26 06:40] LABS: Albumin/Globulin Ratio 0.5 (0.8-1.8); Bilirubin, Direct 0.1 mg/dL (0.0-0.3); Bilirubin, Indirect 0.4 mg/dL (0.1-0.7); Bilirubin, Total 0.5 mg/dL (0.1-1.0); Bun/Creatinine Ratio 10.9 (12.0-20.0); Calcium, Blood 8.3 mg/dL (8.5-10.1); Creatinine, Blood 3.13 mg/dL (0.60-1.20); Globulin, Blood 3.7 g/dL (2.2-4.0); Magnesium, Blood 2.1 mg/dL (1.6-2.4); Phosphorus, Blood 4.1 mg/dL (2.5-4.9); Potassium, Blood 4.3 mmol/L (3.5-5.5); Thyroid Stimulating Hormone 5.08 uIU/mL (0.360-4.800); Total Protein, Blood 5.7 g/dL (6.4-8.2); Uric Acid, Blood 10.2 mg/dL (3.5-7.2)
[2021-06-26 08:10] LABS: Free Thyroxine 0.83 ng/dL (0.70-1.60); Triiodothyronine, Free 0.93 pg/mL (2.18-3.98)
--- NOTE | 2021-06-26 16:16 | NUR ---
SHIFT SUMMARY PT IS AOX4 AND PLEASANT. PT DENIES PAIN, N/V, SOB. PT HAD HEAD CT THIS SHIFT. PT IS SBA IN ROOM. APPETITE CONTINUES TO BE POOR. PT IS IN BED, CALL LIGHT IN REACH, LOW POSITION.
[2021-06-27 05:23] LABS: Hematocrit 25.7 % (37.0-53.0); Hemoglobin 8.2 g/dL (13.5-17.5)
--- NOTE | 2021-06-27 05:41 | NUR ---
SHIFT SUMMARY A/O, ABLE TO MAKE NEEDS KNOWN. COOPERATIVE WITH CARE. ANSWERS QUESTIONS APPROPRIATELY. NO C/O PAIN/DISCOMFORT OF ANY KIND TO THIS RN. UP /c SBA TO BATHROOM; STEADY GAIT NOTED. APPEARED TO REST MINIMALLY. REMAINS /c IV HYDRATION. NO ACUTE CHANGES NOTED OVERNIGHT. BED REMAINS IN LOWEST POSITION. CALL LIGHT AND BELONGINGS WITHIN REACH. CONTINUE WITH CURRENT PLAN OF CARE.
[2021-06-27 05:50] LABS: Anion Gap 12 mmol/L (6-16); Blood Urea Nitrogen 33 mg/dL (8-24); Bun/Creatinine Ratio 14.6 (12.0-20.0); CO2, Blood 18 mmol/L (21-32); Chloride, Blood 110 mmol/L (98-108); Creatinine, Blood 2.26 mg/dL (0.60-1.20); Glomerular Filtration Rate 29 (60-); Glucose, Blood 241 mg/dL (70-99); Magnesium, Blood 2.2 mg/dL (1.6-2.4); Phosphorus, Blood 3.2 mg/dL (2.5-4.9); Potassium, Blood 4.2 mmol/L (3.5-5.5); Sodium, Blood 140 mmol/L (136-145)
--- NOTE | 2021-06-27 08:02 | NUR ---
SHIFT SUMMARY NO CHANGES. VSS. PRN MELATONIN ADDED FOR C/O INSOMNIA.
--- NOTE | 2021-06-27 19:00 | NUR ---
SHIFT SUMMARY: NO ACUTE EVENTS. DENIED PAIN. SBA IN ROOM. IVF INFUSING AT 50 ML/HR. CBG < 200 ALL DAY. TOLERATING DIET, NO N/V. IS HOPING FOR D/C HOME SOON.
[2021-06-28 06:04] LABS: Hematocrit 29.9 % (37.0-53.0); Hemoglobin 9.6 g/dL (13.5-17.5)
[2021-06-28 06:52] LABS: Albumin, Blood 2.4 g/dL (3.4-5.0); Anion Gap 11 mmol/L (6-16); Blood Urea Nitrogen 28 mg/dL (8-24); Bun/Creatinine Ratio 15.3 (12.0-20.0); CO2, Blood 22 mmol/L (21-32); Calcium, Blood 8.3 mg/dL (8.5-10.1); Chloride, Blood 109 mmol/L (98-108); Creatinine, Blood 1.83 mg/dL (0.60-1.20); Glomerular Filtration Rate 37 (60-); Glucose, Blood 133 mg/dL (70-99); Magnesium, Blood 2.3 mg/dL (1.6-2.4); Phosphorus, Blood 2.7 mg/dL (2.5-4.9); Potassium, Blood 3.4 mmol/L (3.5-5.5); Sodium, Blood 142 mmol/L (136-145)
--- NOTE | 2021-06-28 07:18 | NUR ---
SHIFT SUMMARY VSS. ONE EPISODE OF CONFUSION EARLY THIS AM - PT WOKE UP AND DIDN'T REALIZE WHERE HE WAS. PT DISCONNECTED THE IV TUBING AT THE HUB, AND URINATED ON HIS PANTS BECAUSE HE COULDN'T REMEMBER HOW TO CALL FOR ASSISTANCE. PT WAS VISIBLY SHAKEN, AND CONFUSED. HE STATED THIS HAS HAPPENED BEFORE WHEN HE HASN'T SLEPT WELL FOR A FEW NIGHTS, THEN WOKE UP FROM A DEEP SLEEP WITHOUT REMEMBERING WHERE HE WAS.
--- NOTE | 2021-06-28 20:34 | NUR ---
SHIFT SUMMARY: CBG PRIOR TO DINNER WAS 55; PT ASYMPTOMATIC, GAVE APPLE JUICE AND PT HAD DINNER SHORTLY AFTER, REPEAT CBG WAS 189. DENIES PAIN. AMBULATING INDEPENDENTLY IN ROOM, GAIT STEADY, USING BR. HAS VERY DRY SKIN THROUGHOUT. PLEASANT AND COOPERATIVE, NO CONFUSION NOTED TODAY.
[2021-06-29 06:10] LABS: Hematocrit 26.7 % (37.0-53.0); Hemoglobin 8.6 g/dL (13.5-17.5)
[2021-06-29 06:36] LABS: Albumin, Blood 2.2 g/dL (3.4-5.0); Anion Gap 6 mmol/L (6-16); Blood Urea Nitrogen 19 mg/dL (8-24); Bun/Creatinine Ratio 12.3 (12.0-20.0); CO2, Blood 27 mmol/L (21-32); Calcium, Blood 7.7 mg/dL (8.5-10.1); Chloride, Blood 113 mmol/L (98-108); Creatinine, Blood 1.55 mg/dL (0.60-1.20); Glomerular Filtration Rate 44 (60-); Glucose, Blood 86 mg/dL (70-99); Magnesium, Blood 1.8 mg/dL (1.6-2.4); Phosphorus, Blood 2.7 mg/dL (2.5-4.9); Sodium, Blood 146 mmol/L (136-145)
--- NOTE | 2021-06-29 06:56 | NUR ---
SHIFT SUMMARY PT HAD NO ACUTE CHANGES. VSS, RA. FLUIDS INFUSING VIA IV IN THE RIGHT FA. HE HAD ANOTHER EPISODE OF CONFUSION AT NIGHT, WAKING UP UNAWARE OF WHERE HE WAS. HE RECEIVED MIRTAZAPINE LAST SHIFT AND THIS SHIFT, AND HE BELIEVES THAT THE MEDICATION IS CAUSING THIS ALTERED MENTAL STATUS AT NIGHT. HE STATED, "I WOKE UP AND FELT LIKE I WAS IN ANOTHER PERSON'S LIFE." WILL REPORT TO ONCOMING NURSE.
--- NOTE | 2021-06-29 17:20 | NUR ---
SHIFT SUMMARY/TRANFER NOTE PT TRANSFERRED TO SURGERY CENTER FOR OVERFLOW SURGE AT APPROX 1700. REPORT GIVEN TO ELIANE NEGRO. PT AxOx4. PLEASANT AND COOPERATIVE WITH CARE. PT WORKED WITH PHYSICAL THERAPY AND OCCUPATIONAL THERAPY TODAY, SBA FOR GEN WEAKNESS. VITAL SIGNS REVIEWED. PT VERBALIZES UNDERSTANDING FOR TRANSFER. NO FURTHER QUESTIONS AT THIS TIME. PT SAFELY TRANSFERRED OUT VIA WC BY RN AND TREASURY SPECIALIST.
--- NOTE | 2021-06-29 17:53 | NUR ---
PT WAS RECIEVED AND REPORT WAS TAKEN. UPON ADMISSION TO ROOM 406 PT STATED STRONG NEED TO DC. DR LARRY WAS NOTIFIED. STATED PT SHOULD REMAIN OVERNIGHT TO COMPLETE FLUID REGIMENT. PT REFUSED. AGREED TO DC PT PROVIDED HE CONTINUE WITH OUTPATIENT CARE. PT CALLED TO COME PICK HIM UP. PT'S CHEMBG WAS TAKEN PRIOR TO MEAL. BLOOD GLUCOSE WAS 187.END NOTE ORSC.RDS
[2021-06-29] MEDS ORDERED: ALLO100 PO (18:32)
[2021-06-29] MEDS ORDERED: LISI5 PO (18:33)
[2021-06-29] MEDS ORDERED: Amoxicillin500 MG PO (18:33)
[2021-06-29] MEDS ORDERED: MIRT15 PO (18:33)
--- NOTE | 2021-06-29 19:01 | NUR ---
PT RECIEVED 2UNITS OF NOVOLOG PRIOR TO DINNER. IV WAS DC AND ALL PT BELONGINGS WHERE RETURNED TO PT PRIOR TO DC. DC INSTRUCTIONS WERE REVIEWED WITH PT AND . TO ORDER PRESCRIPTIONS WHICH WILL BE CALLED INTO PT PHARMACY OF CHOICE. END NOTE ORSC.RDS.
--- NOTE | 2021-06-29 19:21 | NUR ---
PRESCRIPTIONS TO BE CALLED INTO [facility] FOR PT.
--- NOTE | 2021-06-30 07:50 | NUR ---
PRESCRIPTIONS FAXED TO PHARMACY FOR PT TO FILL TODAY. ORSC.RDS
== END 2021-06-29 19:21 | disposition home or self-care (01) | DRG 872 ==
LOC: ER 12:55 → MEDS 15:58 → ORSCIP 06-29 16:50
PROVIDERS: Emergency Medicine; Internal Medicine Nephrology; ADMIT Family Medicine
DX: A40.8 Other streptococcal sepsis (principal); N39.0 Urinary tract infection, site not specified; N17.9 Acute kidney failure, unspecified; K50.90 Crohn's disease, unspecified, without complications; E27.40 Unspecified adrenocortical insufficiency; E87.1 Hypo-osmolality and hyponatremia; E87.2 Acidosis; N18.30 Chronic kidney disease, stage 3 unspecified; E10.22 Type 1 diabetes mellitus with diabetic chronic kidney disease; I12.9 Hypertensive chronic kidney disease with stage 1 through stage 4 chronic kidney disease, or unspecified chronic kidney disease; E10.42 Type 1 diabetes mellitus with diabetic polyneuropathy; E86.0 Dehydration; E88.09 Other disorders of plasma-protein metabolism, not elsewhere classified; E06.3 Autoimmune thyroiditis; R63.0 Anorexia; Z68.21 Body mass index [BMI] 21.0-21.9, adult; G31.84 Mild cognitive impairment of uncertain or unknown etiology; J44.9 Chronic obstructive pulmonary disease, unspecified; E78.5 Hyperlipidemia, unspecified; D63.1 Anemia in chronic kidney disease; E10.69 Type 1 diabetes mellitus with other specified complication; M81.0 Age-related osteoporosis without current pathological fracture; Z87.891 Personal history of nicotine dependence; Z98.890 Other specified postprocedural states; E31.0 Autoimmune polyglandular failure; Z91.14 Patient's other noncompliance with medication regimen; Z79.4 Long term (current) use of insulin; Z79.01 Long term (current) use of anticoagulants; Z79.899 Other long term (current) drug therapy; Z86.73 Personal history of transient ischemic attack (TIA), and cerebral infarction without residual deficits; Z86.718 Personal history of other venous thrombosis and embolism
CPT/HCPCS: 36415; 70450; 71045; 76770; 80053; 80069; 81001; 82010; 82248; 82306; 82530; 82533; 82550; 82607; 82746; 82947; 83605; 83690; 83735; 84100; 84439; 84443; 84481; 84484; 84550; 85014; 85018; 85025; 87040; 87077; 87086; 87186; 92523; 93005; 93010; 94640; 94760; 96365; 96366; 96375; 97110; 97116; 97161; 97166; 97530; 99285-25; A9270; J0696; J0881; J1720; J1815; J2405; J3480; J7030; J7042

== ENCOUNTER 2021-08-07 11:54 | Inpatient (IN) | payer MEDICARE, OTHER ==
[~2021-08-07] VITALS: Ht 172.7 cm; Wt 48.9 kg
[~2021-08-07 11:54] MED LIST changes: +ALLO100 PO; +Amoxicillin500 MG PO; +LISI5 PO; +MIRT15 PO; +SYNTHROID50 MC1 PO
[2021-08-07 12:32] LABS: Source, Urine Clean Catch
[2021-08-07 12:40] LABS: BASOPHILS ABSOLUTE AUTO 0.06 K/mm3 (0.00-0.23); BASOPHILS PERCENT AUTO 1 % (0-2); EOSINOPHILS ABSOLUTE AUTO 1.35 K/mm3 (0.00-0.68); EOSINOPHILS PERCENT AUTO 15 % (0-6); Hematocrit 35.3 % (37.0-53.0); Hemoglobin 11.1 g/dL (13.5-17.5); IMMATURE GRAN ABSOLUTE AUTO 0.02 K/mm3 (0.00-0.10); IMMATURE GRAN PERCENT AUTO 0 % (0-1); LYMPHOCYTES ABSOLUTE AUTO 2.15 K/mm3 (0.84-5.20); LYMPHOCYTES PERCENT AUTO 24 % (21-46); MONOCYTES ABSOLUTE AUTO 0.74 K/mm3 (0.16-1.47); MONOCYTES PERCENT AUTO 8 % (4-13); Mean Corpuscular HGB 28.5 pg (26.0-34.0); Mean Corpuscular HGB Conc 31.4 g/dL (31.5-36.5); Mean Corpuscular Volume 91 fL (80-100); Mean Platelet Volume 12.1 fL (9.1-12.4); NEUTROPHILS ABSOLUTE AUTO 4.77 K/mm3 (1.96-9.15); NEUTROPHILS PERCENT AUTO 52 % (41-73); Platelet Count 427 K/mm3 (150-400); RDW Coefficient Variation 16.3 % (11.7-14.2); RDW Standard Deviation 54.6 fL (35.1-46.3); White Blood Cell Count 9.09 K/mm3 (4.00-11.30)
[2021-08-07 13:00] LABS: Base Excess Venous -13.5 mmol/L; Bicarbonate Venous 14.5 mmol/L (24.0-30.0); PCO2 Venous 38.3 mmHg (38-42); PO2 Venous 63.9 mmHg (38-42)
[2021-08-07 13:08] LABS: Bilirubin, Urine Neg (Neg); Blood, Urine 4+ (Neg); Glucose Qualitative, Urine 4+ (Neg); Ketones, Urine 4+ (Neg); Leukocyte Esterase, Urine Neg (Neg); Nitrite, Urine Neg (Neg); Protein, Urine 1+ (Neg); Specific Gravity, Urine 1.015 (1.003-1.022); Urobilinogen, Urine NORM (Normal)
[2021-08-07 13:18] LABS: pH Blood Venous 7.19 (7.34-7.37)
[2021-08-07 13:22] LABS: Appearance, Urine Clear (Clear); Color, Urine Yellow (P-Yellow)
[2021-08-07 13:25] LABS: Bacteria Not Seen /hpf; Squamous Epithelial Cells Rare /hpf (Few)
[2021-08-07 13:44] LABS: SARS-Cov-2 (COVID-19) PCR, MMC NEGATIVE (NEGATIVE)
[2021-08-07 13:47] LABS: Alanine Aminotransfer (ALT/SGP 12 U/L (12-78); Albumin, Blood 2.3 g/dL (3.4-5.0); Albumin/Globulin Ratio 0.5 (0.8-1.8); Alk Phos 151 U/L (50-136); Anion Gap 23 mmol/L (6-16); Aspartate Aminotrans (AST/SGOT 10 U/L (12-37); Bilirubin, Total 0.6 mg/dL (0.1-1.0); Blood Urea Nitrogen 45 mg/dL (8-24); Bun/Creatinine Ratio 18.7 (12.0-20.0); CO2, Blood 16 mmol/L (21-32); Calcium, Blood 9.7 mg/dL (8.5-10.1); Chloride, Blood 89 mmol/L (98-108); Creatinine, Blood 2.41 mg/dL (0.60-1.20); Globulin, Blood 4.7 g/dL (2.2-4.0); Glomerular Filtration Rate 27 (60-); Glucose, Blood 739 mg/dL (70-99); Potassium, Blood 5.4 mmol/L (3.5-5.5); Sodium, Blood 128 mmol/L (136-145)
[2021-08-07 14:41] LABS: Beta-hydroxybutyrate 90.1 mg/dL (0.2-2.8)
--- NOTE | 2021-08-07 16:15 | NUR ---
PT ARRIVAL ON UNIT... PT ARRIVED ON UNIT VIA GURNEY, PT WAS TRANSFERED TO THE ICU BED BY 3 STAFF, PT WAS ADMITTED FOR DKA AND IS ON AN INSULIN GTT AT 6 UNITS/HR. PT ALSO HAS NS W/ KCL RUNNING AT 250MLS/HR. PT IS A&Ox3 AND LETHARGIC. PT IS IN SR IN THE 70'S-80'S NO EDEMA ON ASSESSMENT. PT'S BPs ARE SOFT WITH SBP IN THE 90'S. L/S CLEAR AND DIM T/O. BT PRESENT AND HYPERACTIVE, PT DENIES ANY N/V AT THIS TIME. PT IS ON RA WITH O2 SATS >90%. WILL CONTINUE TO MONITOR.
--- NOTE | 2021-08-07 18:46 | NUR ---
SHIFT SUMMARY... PT'S BP CONTINUED TO DROP DOWN FROM SBPs IN THE 90'S TO THE 70'S, DR. LENTZ WAS CALLED AND AN ORDER FOR LEVOPHED WAS OBTAINED, THE LEVOPHED WAS NOT STARTED D/T THE PT'S BP IMPROVING AT THIS TIME. THE PT CONITNUES TO BE ON AN INSULIN GTT RUNNING AT 4 UNITS/HR. PT IS ABLE TO TURN HIMSELF IN THE BED NEEDED. CALL LIGHT IN REACH WILL CONTINUE TO MONITOR UNTIL REPORT IS GIVEN TO ONCOMING RN.
[2021-08-07 20:21] LABS: Bun/Creatinine Ratio 18.3 (12.0-20.0); Calcium, Blood 9.5 mg/dL (8.5-10.1); Creatinine, Blood 2.24 mg/dL (0.60-1.20); Potassium, Blood 4.7 mmol/L (3.5-5.5)
[2021-08-08 00:10] LABS: Bun/Creatinine Ratio 18.1 (12.0-20.0); Calcium, Blood 9.1 mg/dL (8.5-10.1); Creatinine, Blood 2.1 mg/dL (0.60-1.20); Potassium, Blood 4.1 mmol/L (3.5-5.5)
[2021-08-08 03:48] LABS: Bun/Creatinine Ratio 18.1 (12.0-20.0); Creatinine, Blood 2.04 mg/dL (0.60-1.20); Potassium, Blood 4.1 mmol/L (3.5-5.5)
[2021-08-08 03:52] LABS: Magnesium, Blood 2.6 mg/dL (1.6-2.4); Phosphorus, Blood 2.7 mg/dL (2.5-4.9)
--- NOTE | 2021-08-08 04:38 | NUR ---
SHIFT SUMMARY INSULIN DRIP TITRATED TO MANAGE BLOOD SUGAR LEVELS. MADE DR LI AWARE OF LABS DRAWN EARLIER IN SHIFT, WILL NOT STOP DRIP TONIGHT PT. DENIES FOOD/DRINK AT THIS TIME, C/O NAUSEA WHEN EATING OR DRINKING. VSS. NO C/O PAIN. WILL CONTINUE TO MONITOR.
[2021-08-08 08:29] LABS: Bun/Creatinine Ratio 18.3 (12.0-20.0); Calcium, Blood 8.7 mg/dL (8.5-10.1); Creatinine, Blood 1.91 mg/dL (0.60-1.20); Potassium, Blood 3.8 mmol/L (3.5-5.5)
--- NOTE | 2021-08-08 18:03 | NUR ---
Met with pt today to assess his mentation and see if I could get to know him a bit. However, he appeared very lethargic, yawning often and closing his eyes through most of our conversation. He did tell me he was, "Tired", but he also said he isn't "tired of living". I asked why he has stopped eating, and he states, "I just don't feel good", then disengages with me. I tried asking a few other questions, and he was able to tell me his 's name was sultana. He did not appear to understand when I asked him if he was hungry, as he again closes his eyes and turns his head away. I ask if he is depresseed, he states he is not. He isn't able to recall how long it's been. I asked if I could come and visit again tomorrow, he sates, "That would be gayathri". I then had a 45 min telephone conversation with Sultana, pt's . She tells me the pt is her 2nd , he's "Yazidism" and that he doesn't appear motivated to take care of his health any longer. She states she does not believe he is depressed, and that he doesn't complain of pain, or any other thing; only states he's "tired" and lays in reclining chair most of the day, every day. She reports this as going on "about 3 weeks". However, his medical record shows he has been in and out of the hospital [facility] times this year and last. She tells me she and "Michael" have had multiple conversations about arpita cole, and she is agreeable to fill one out now since we don't have one. Adam Cartwright RN is a witness to the conversation on speaker phone. Pt made a DNR with limited treatment, and after filled out, I reviewed it with pt, just to be sure. He said, "looks good". Sultana will be talking with pt's children this evening, and we will be talking again tomorrow, possibly along with patient to make needed decisions.
--- NOTE | 2021-08-08 19:50 | NUR ---
PT PRESENTED CONFUSED, APATHETIC, LETHARGIC, WITH A FLAT AFFECT; ANTIHYPERTENSIVE HELD 2/2 SOFT BP; CBG TAKEN Q1H UNTIL INSULIN DRIP ON STANDBY AT 0746 THEN Q2H UNTIL CRITICAL LOW CBG AFTER 1500, THEN Q1H AGAIN; RX GIVEN PER JAN; DR. LENTZ WAS CALLED AT 1000, 1136, AND PROVIDER ROUNDED AFTER EACH CALL WITH ADDITIONAL ROUND AT 1546; PT HAS CLEAR LUNG SOUNDS IN ALL [place] AUSCULTATED AND LOUD CROUPY COUGH THAT WAS NOT PRODUCTIVE; PT REFUSED TO EAT FOOD; PT WAS UPDATED VIA PHONE AND ASKED QUESTIONS CONCERNING PT'S CODE STATUS AND TREATMENT GOALS FROM 1550 TO 164; PALLIATIVE CARE RN UPDATED ABOUT CASE; RT EVALUATED PT; AT SHIFT CHANGE PT PULLED OUT BOTH IV'S, HAD AN EPISODE OF ENURESIS AFTER BEING CONTINENT ALL DAY, AND REPORTED NOT KNOWING WHERE HE WAS; 22G PIV INSERTED IN R RADIAL; PT DENIES ADDITIONAL CONCERNS AT THIS TIME
[2021-08-08 20:06] LABS: Bun/Creatinine Ratio 17.1 (12.0-20.0); Calcium, Blood 8.7 mg/dL (8.5-10.1); Creatinine, Blood 1.58 mg/dL (0.60-1.20); Potassium, Blood 4.3 mmol/L (3.5-5.5)
--- NOTE | 2021-08-08 21:58 | NUR ---
ASSUMED CARE AT 1900 PT LAYING IN BED AND LETHARGIC. ORIENTED TO SELF, TOWN, AND YEAR; UNAWEAR OF DATE AND BUILDING; FIRST ENCOUNTER PT ASKED TO HAVE "A GUN TO END MY MISER", TWO HOURS LATER PT ASKED WHY HE WAS HERE, FOLLOWED BY STATING THAT HE DIDN'T WANT TO ; FLAT AFFECT AND WITHDRAWN DURING THESE CONVERSATIONS. SPO2 >98% ON RA; NONPRODUCTIVE, DRY, HACKING COUGH NOTED. HR 70'S. BP STABLE. PT ALSO ASKED FOR SOMETHING TO EAT; A WHOLE SANDWICH TOLERATED WELL; NO C/O NAUSEA. D5 1/2NS INFUSING AT 125ML/HR. SEE SHIFT ASSESSMENT FOR FULL ASSESSMENT.
[2021-08-08 23:48] LABS: Bun/Creatinine Ratio 16.1 (12.0-20.0); Calcium, Blood 8.5 mg/dL (8.5-10.1); Creatinine, Blood 1.61 mg/dL (0.60-1.20); Potassium, Blood 4.6 mmol/L (3.5-5.5)
--- NOTE | 2021-08-09 00:52 | NUR ---
UPDATE PT HAS BEEN HUNGRY AND ATE A SANDWICH AND A SMALL AMOUNT OF GRAHMCRACKERS WITH PEANUT BUTTER. LAST GLUOSE WAS 325. CALLED HOSPITALIST ASKING TO D/C D5 1/2NS AND SOMETHING TO ADDRESS PT COUGHING. D/C APPROVED AND JACINTO CORDOBA ORDERED. WILL RECHECK GLUCOSE IN 1 HOUR.
--- NOTE | 2021-08-09 05:35 | NUR ---
TRANSFERED PT TRANSFERED TO MEDICAL FLOOR ROOM 313 AT 0530, REPORT GIVEN AT THAT SAME TIME. PT IS ALERT AND ORIENTED X2 AND NOT WITHDRAWN PREVIOUSLY; PT MAKING CONVERSATION ABOUT FAMILY AND DOGS AT HOME; MORE FACIAL EXPRESSIONS NOW. CONT TO BE ON RA. VSS. SALINE LOCKED. BELONGINGS SENT WITH PT.
--- NOTE | 2021-08-09 06:22 | NUR ---
PT ARRIVED TO MEDICAL FLOOR AT 0540, TRANSFERRED FROM ICU. PT IS A/O X3, APPEARS PLEASANT. VITALS STABLE. ROOM AIR. CURRENTLY IN BED WATCHING TV. BED ALARM ON, WILL REPORT TO ONCOMING RN.
[2021-08-09 10:04] LABS: BASOPHILS ABSOLUTE AUTO 0.03 K/mm3 (0.00-0.23); BASOPHILS PERCENT AUTO 0 % (0-2); EOSINOPHILS ABSOLUTE AUTO 1.06 K/mm3 (0.00-0.68); EOSINOPHILS PERCENT AUTO 15 % (0-6); Hematocrit 33.5 % (37.0-53.0); Hemoglobin 10.7 g/dL (13.5-17.5); IMMATURE GRAN ABSOLUTE AUTO 0.01 K/mm3 (0.00-0.10); IMMATURE GRAN PERCENT AUTO 0 % (0-1); LYMPHOCYTES PERCENT AUTO 32 % (21-46); MONOCYTES ABSOLUTE AUTO 0.57 K/mm3 (0.16-1.47); MONOCYTES PERCENT AUTO 8 % (4-13); Mean Corpuscular HGB 28.1 pg (26.0-34.0); Mean Corpuscular HGB Conc 31.9 g/dL (31.5-36.5); Mean Corpuscular Volume 88 fL (80-100); Mean Platelet Volume 11.6 fL (9.1-12.4); NEUTROPHILS ABSOLUTE AUTO 3.24 K/mm3 (1.96-9.15); NEUTROPHILS PERCENT AUTO 45 % (41-73); Platelet Count 334 K/mm3 (150-400); RDW Coefficient Variation 16.1 % (11.7-14.2); RDW Standard Deviation 52.1 fL (35.1-46.3); Red Blood Cell Count 3.81 M/mm3 (4.30-5.90); White Blood Cell Count 7.21 K/mm3 (4.00-11.30)
[2021-08-09 10:30] LABS: Bun/Creatinine Ratio 14.3 (12.0-20.0); Calcium, Blood 9.2 mg/dL (8.5-10.1); Creatinine, Blood 1.54 mg/dL (0.60-1.20); Potassium, Blood 4.1 mmol/L (3.5-5.5)
--- NOTE | 2021-08-09 16:45 | NUR ---
UPON MORNING ASSESSMENT, PT WAS VERY CONCERNED THAT HIS WAS "EXTREMELY WORRIED" THAT HE "WAS DYING." HE STATES THAT "SOMEONE FROM THE HOSPITAL CALLED" HIS SPOUSE AND TOLD HER THAT HE "WAS DYING." SHE THEN CALLED THEIR CHILDREN AND RELATIVES AND TOLD THEM ALSO THAT "HE WAS DYING." DURING THE TIME THIS NURSE WAS IN THE ROOM PATIENT MADE MULTIPLE PHONE CALLS STATING "I'M NOT ." THERAPEUTIC COMMUNICATION AND ACTIVE LISTENING SKILLS UTILIZED. BED IN LOW POSITION, CALL LIGHT WITHIN REACH.
--- NOTE | 2021-08-09 18:42 | NUR ---
SHIFT SUMMARY PT AXO X4 THOUGH FORGETFUL. PT STATED THAT HE COULDN'T REMEMBER HOW HE GOT HERE. VSS. PT HYPOGLYCEMIC AT 1346 WITH CBG OF 24. THIS NURSE RETURNED FROM BREAK NURSE COVERING BREAK WAS GIVING PATIENT ORANGE JUICE AND ICE CREAM. THIS NURSE CALLED DR. LENTZ AND NOTIFIED HIM OF CBG AND GOT ORDER FOR HYPOGLYCEMIA PROTOCOL. NEXT CBG AT 1405 WAS 27. PATIENT THEN TREATED BY THIS NURSE PER PROTOCOL WITH 8 OZ APPLEJUICE. CBG 15 MINUTES AFTER TREATMENT WAS 30 AT 1432. AT THAT TIME PT REFUSED FURTHER PO INTAKE STATING THAT HE DIDNT WANT TO "OVER-DO IT." OMAIRA MUNOZ CALLED DR. LENTZ AGAIN, SEE NURSE NOTIFY. CBG AT 1412 WAS 54 AND THEN AT 1714 WAS 76. PT OKAY TO DC HOME PER DR. LENTZ. PT EDUCATED ON ALL DISCHARGE INSTRUCTIONS. ALL QUESTIONS ANSWERED. PT AGREES TO ADJUST HIS INSULIN DOSAGE PER ORDERS. AND TO FOLLOW UP WITH PCP. PT REFUSED DINNER AND MEDS DUE AT TIME OF DISCHARGE R/T GOING TO DINNER WITH HIS SPOUSE. HE STATES THAT HE WILL DOSE INSULIN BASED ON WHAT HE EATS AT DINNER TONIGHT. IV DC'D AND BELONGINGS RETURNED. PT LEFT ROOM VIA WHEELCHAIR WITH RN ESCORT TO VEHICLE WHERE HIS WAS WAITING.
== END 2021-08-09 18:11 | disposition home or self-care (01) | DRG 637 ==
LOC: ER 11:54 → ICUW 11:55 → MEDS 08-09 05:40
PROVIDERS: Family Medicine; Student in an Organized Health Care Education/Training Program; ADMIT Internal Medicine
DX: E10.10 Type 1 diabetes mellitus with ketoacidosis without coma (principal); R57.8 Other shock; N17.9 Acute kidney failure, unspecified; E27.40 Unspecified adrenocortical insufficiency; K50.90 Crohn's disease, unspecified, without complications; F01.50 Vascular dementia, unspecified severity, without behavioral disturbance, psychotic disturbance, mood disturbance, and anxiety; E31.0 Autoimmune polyglandular failure; E86.0 Dehydration; Z20.822 Contact with and (suspected) exposure to COVID-19; D63.8 Anemia in other chronic diseases classified elsewhere; J44.9 Chronic obstructive pulmonary disease, unspecified; I12.9 Hypertensive chronic kidney disease with stage 1 through stage 4 chronic kidney disease, or unspecified chronic kidney disease; N18.30 Chronic kidney disease, stage 3 unspecified; E03.9 Hypothyroidism, unspecified; M81.0 Age-related osteoporosis without current pathological fracture; F10.10 Alcohol abuse, uncomplicated; E78.5 Hyperlipidemia, unspecified; E10.649 Type 1 diabetes mellitus with hypoglycemia without coma; E10.22 Type 1 diabetes mellitus with diabetic chronic kidney disease; Z98.890 Other specified postprocedural states; Z87.891 Personal history of nicotine dependence; Z79.4 Long term (current) use of insulin; Z79.899 Other long term (current) drug therapy; Z79.01 Long term (current) use of anticoagulants; Z86.73 Personal history of transient ischemic attack (TIA), and cerebral infarction without residual deficits; Z91.14 Patient's other noncompliance with medication regimen; Z71.41 Alcohol abuse counseling and surveillance of alcoholic
CPT/HCPCS: 36415; 71045; 80048; 80053; 81001; 82010; 82803; 82947; 83690; 83735; 84100; 85025; 93005; 93010; 94640; 94664; 94760; 96360; 96361; 96372; 99285-25; A9270; G0378; J1650; J1815; J3480; J7042; J7120; U0004

== ENCOUNTER 2021-09-02 17:53 | Inpatient (IN) | payer MEDICARE, OTHER ==
[~2021-09-02] VITALS: Ht 172.7 cm; Wt 63.5 kg
[~2021-09-02 17:53] MED LIST changes: +Humibid-LA 600600 MG PO; +LEVOFLOXACIN750 MG PO; -ONDA4ODT PO
[2021-09-02 18:20] LABS: BASOPHILS ABSOLUTE AUTO 0.05 K/mm3 (0.00-0.23); BASOPHILS PERCENT AUTO 0 % (0-2); EOSINOPHILS PERCENT AUTO 10 % (0-6); Hematocrit 36.5 % (37.0-53.0); Hemoglobin 12.1 g/dL (13.5-17.5); IMMATURE GRAN ABSOLUTE AUTO 0.05 K/mm3 (0.00-0.10); IMMATURE GRAN PERCENT AUTO 0 % (0-1); LYMPHOCYTES ABSOLUTE AUTO 2.38 K/mm3 (0.84-5.20); LYMPHOCYTES PERCENT AUTO 16 % (21-46); MONOCYTES ABSOLUTE AUTO 1.22 K/mm3 (0.16-1.47); MONOCYTES PERCENT AUTO 8 % (4-13); Mean Corpuscular HGB 29.1 pg (26.0-34.0); Mean Corpuscular HGB Conc 33.2 g/dL (31.5-36.5); Mean Corpuscular Volume 88 fL (80-100); Mean Platelet Volume 10.9 fL (9.1-12.4); NEUTROPHILS ABSOLUTE AUTO 9.92 K/mm3 (1.96-9.15); NEUTROPHILS PERCENT AUTO 66 % (41-73); Platelet Count 454 K/mm3 (150-400); RDW Coefficient Variation 15.3 % (11.7-14.2); RDW Standard Deviation 48.7 fL (35.1-46.3); Red Blood Cell Count 4.16 M/mm3 (4.30-5.90); White Blood Cell Count 15.12 K/mm3 (4.00-11.30)
[2021-09-02 18:46] LABS: Alanine Aminotransfer (ALT/SGP 16 U/L (12-78); Albumin, Blood 2.7 g/dL (3.4-5.0); Albumin/Globulin Ratio 0.6 (0.8-1.8); Alk Phos 132 U/L (50-136); Anion Gap 10 mmol/L (6-16); Aspartate Aminotrans (AST/SGOT 13 U/L (12-37); Bilirubin, Total 0.9 mg/dL (0.1-1.0); Blood Urea Nitrogen 49 mg/dL (8-24); Bun/Creatinine Ratio 14.8 (12.0-20.0); CO2, Blood 26 mmol/L (21-32); Calcium, Blood 9.8 mg/dL (8.5-10.1); Chloride, Blood 97 mmol/L (98-108); Creatinine, Blood 3.31 mg/dL (0.60-1.20); Ethanol (Alcohol), Blood, Med <3 mg/dL; Globulin, Blood 4.7 g/dL (2.2-4.0); Glomerular Filtration Rate 18 (60-); Glucose, Blood 295 mg/dL (70-99); Potassium, Blood 3.6 mmol/L (3.5-5.5); Sodium, Blood 133 mmol/L (136-145); Total Protein, Blood 7.4 g/dL (6.4-8.2)
[2021-09-02 18:49] LABS: International Normalized Ratio 0.99; Prothrombin Time Results 10.4 Sec (9.7-11.5)
[2021-09-02 19:37] LABS: Source, Urine Catheter
[2021-09-02 19:45] LABS: Appearance, Urine Clear (Clear); Bilirubin, Urine Neg (Neg); Blood, Urine 4+ (Neg); Color, Urine Yellow (P-Yellow); Glucose Qualitative, Urine 4+ (Neg); Ketones, Urine 2+ (Neg); Leukocyte Esterase, Urine Neg (Neg); Nitrite, Urine Neg (Neg); Protein, Urine 1+ (Neg); Urobilinogen, Urine NORM (Normal)
[2021-09-02 19:55] LABS: U Amphetamine Screen Not Detected; U Barbituate Screen Not Detected; U Benzodiazapine Screen Not Detected; U Buprenorphine Screen Not Detected; U Cannabinoids Screen Not Detected; U Cocaine Screen Not Detected; U Methadone Screen Not Detected; U Methamphetamine Screen Not Detected; U Opiates Screen Not Detected; U Oxycodone Screen Not Detected; U Phencyclidine Screen Not Detected; U Propoxyphene Screen Not Detected
[2021-09-02 19:57] LABS: Bacteria Rare /hpf; Granular Casts Rare /lpf (0); Squamous Epithelial Cells Few /hpf (Few)
[2021-09-02 20:00] LABS: Renal Epithelial Few /hpf (0-Rare)
[2021-09-02 20:01] LABS: Amorphous Light (0-Heavy)
[2021-09-02 22:35] LABS: SARS-Cov-2 (COVID-19) PCR, MMC NEGATIVE (NEGATIVE)
[2021-09-02] MEDS ORDERED: SPIRIVA RESPIMAT4 G3 INH (23:01)
[2021-09-03 05:50] LABS: BASOPHILS ABSOLUTE AUTO 0.02 K/mm3 (0.00-0.23); BASOPHILS PERCENT AUTO 0 % (0-2); EOSINOPHILS ABSOLUTE AUTO 1.38 K/mm3 (0.00-0.68); EOSINOPHILS PERCENT AUTO 11 % (0-6); Hematocrit 31.3 % (37.0-53.0); Hemoglobin 10.4 g/dL (13.5-17.5); IMMATURE GRAN ABSOLUTE AUTO 0.05 K/mm3 (0.00-0.10); IMMATURE GRAN PERCENT AUTO 0 % (0-1); LYMPHOCYTES ABSOLUTE AUTO 1.35 K/mm3 (0.84-5.20); LYMPHOCYTES PERCENT AUTO 10 % (21-46); MONOCYTES ABSOLUTE AUTO 0.53 K/mm3 (0.16-1.47); MONOCYTES PERCENT AUTO 4 % (4-13); Mean Corpuscular HGB 29.5 pg (26.0-34.0); Mean Corpuscular HGB Conc 33.2 g/dL (31.5-36.5); Mean Corpuscular Volume 89 fL (80-100); Mean Platelet Volume 11.3 fL (9.1-12.4); NEUTROPHILS ABSOLUTE AUTO 9.73 K/mm3 (1.96-9.15); NEUTROPHILS PERCENT AUTO 74 % (41-73); Platelet Count 374 K/mm3 (150-400); RDW Coefficient Variation 15.2 % (11.7-14.2); RDW Standard Deviation 49.1 fL (35.1-46.3); Red Blood Cell Count 3.52 M/mm3 (4.30-5.90); White Blood Cell Count 13.06 K/mm3 (4.00-11.30)
[2021-09-03 06:11] LABS: Bun/Creatinine Ratio 11.7 (12.0-20.0); Calcium, Blood 8.5 mg/dL (8.5-10.1); Creatinine, Blood 4.19 mg/dL (0.60-1.20); Potassium, Blood 4.1 mmol/L (3.5-5.5)
--- NOTE | 2021-09-03 06:21 | NUR ---
PATIENT VERY WEAK AND SUBDUED OVERNIGHT. SPEAKING IN WHISPERS, AND COMPLAINING OF BEING FREEZING ALL NIGHT DESPITE ROOM TEMPERATURE, BLANKETS. HE WAS AFIBRILE ALL NIGHT. AFTER 2.5 LITERS OF IV FLUIDS, THE PATIENT WAS STILL NOT FEELING LIKE HE HAD TO VOID. SCAN WAS PERFORMED AND BLADDER SCANNER SHOWED <23ML IN BLADDER.
--- NOTE | 2021-09-03 17:45 | NUR ---
Update 09/03/21: 71 YOM BROUGHT INTO ER BY HIS DUE TO FAILURE TO THRIVE. ADOLPH LIKELY DUE TO POOR PO INTAKE. ALSO DIAGNOSED WITH SEPSIS. LUNG MASS WAS DISCOVERED DURING LAST HOSPITALIZATION. I HAD THE PLEASURE OF MEETING MR. ENRIQUEZ DURING HIS LAST HOSPITAL STAY. AT TIME OF DISCHARGE HE ACTUALLY SEEMED TO BE DOING QUITE WELL. HE WORKED WITH PT AND WAS AMBULATING WITHOUT CONCERN. I HAD OFFERED A REFERRAL FOR HOME HEALTH SERVICES AND BOTH PATIENT AND HAD DECLINED. ENCOURAGED THEM TO AT LEAST ALLOW FOR HH NURSING DUE TO RECENT HYPOGLYCEMIA, WEIGHT LOSS, AND CHANGES IN MEDS. EXPLAINED THE VALUE OF HH NURSING IN DEPTH, THEY STILL DECLINED SERVICES. I HAD PROVIDED THEM WITH EFM NUMBER TO CONTACT IN THE EVENT THEY CHANGED THEIR MINDS. IN REVIEWING THE CHART NOTES FROM ADMISSION, PT. HAS DECLINED QUITE A BIT SINCE LAST HOSPITAL STAY. PT. LIVING WITH ROBIN PRIOR TO ADMISSION. ABLE TO COMPLETE ADLS WITH LITTLE ASSISTANCE UNTIL RECENTLY. PER PATIENT'S , HE HAS STOPPED EATING AND TAKING HIS MEDICATIONS. SHE STATES THE ONLY DRINKS WATER. HAD CONTACTED PCP YESTERDAY TO INQUIRE ABOUT WHAT SHE SHOULD DO TO ENCOURAGE PATIENT TO BE COMPLIANT WITH CARE PLAN. REFERRAL WAS PLACED TO COMMUNITY FENCE LABORER. PT. WAS EVALUATED IN ED PRIOR TO PROGRESS WITH ADDITIONAL RESOURCES. ANTICIPATE NEEDS AT TIME OF DISCHARGE TO INCLUDE: PT/OT EVAL, HH REFERRAL AT MINIMUM, POSSIBLY SNF, HOSPITAL F/U WITHIN 5-[address] SCHULTZ, AND F/U WITH PULMONOLOGY. DISPOSITION IS UNKNOWN AT THIS TIME.
--- NOTE | 2021-09-03 18:17 | NUR ---
SUMMARY PT AWAKE IN BED, HAS BEEN INCONTINENT STOOL FREQUENTLY THIS EVENING, PT HAS BEEN LETHARGIC AND CONFUSED FOR MOST OF THE DAY, HAS DEMENTIA, POOR APPETITE, LOW BLOOD SUGAR, DEXTROSE GIVEN, PT MORE ALERT AFTER GLUCOSE GIVEN, SACRUM STARTING TO GET REDDENED WITH MULTIPLE ATTENDS CHANGES, CREAM APPLIED AND FOAM DRESSING APPLIED, DR DURAN CONSULTED, WILL NEED TO PLACE A CONDOM CATH FOR MONITORING URINE OUTPUT, HAS BEEN AT THE BEDSIDE THIS AFTERNOON, VSS, WILL CONT TO MONITOR
[2021-09-03 19:42] LABS: C DIFFICILE DNA NEGATIVE (Negative)
--- NOTE | 2021-09-03 21:22 | NUR ---
patient continues to have copious watery stools. gluteal fold getting red and tender. call placed to MD to request anti diarrheal, and to imform him of Lactic acid of 2.03.
--- NOTE | 2021-09-04 00:20 | NUR ---
Patient extremely fragile tonight. he has continues to have liquid stools.(neg. c-diff), and tonight within seconds of taking 2 hs meds, he projectile vomited a large amount of brown mucousy emesis. he received IV zofran after this. placing call to hospitalist now.
--- NOTE | 2021-09-04 04:52 | NUR ---
patient had multiple liquid stools and two episodes of hard vomiting overnight. Requested CT abd for concern of Small Bowel Obstruction. Awaiting results and call from hospitalist. 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 Michael is slightly more conversive this morning. Spirits are improved over yesterday. Zofran given twice last night for nausea. LACTIC ACID went from 2.3 at 2044 to 1.5 at 2330. Fluids have changed per order to D5 1/2 at 50ml per hour
[2021-09-04 07:09] LABS: BASOPHILS ABSOLUTE AUTO 0.04 K/mm3 (0.00-0.23); BASOPHILS PERCENT AUTO 0 % (0-2); EOSINOPHILS ABSOLUTE AUTO 0.06 K/mm3 (0.00-0.68); EOSINOPHILS PERCENT AUTO 0 % (0-6); Hematocrit 33.2 % (37.0-53.0); Hemoglobin 10.9 g/dL (13.5-17.5); Mean Corpuscular HGB 29.3 pg (26.0-34.0); Mean Corpuscular HGB Conc 32.8 g/dL (31.5-36.5); Mean Corpuscular Volume 89 fL (80-100); Mean Platelet Volume 11.7 fL (9.1-12.4); Platelet Count 267 K/mm3 (150-400); RDW Coefficient Variation 15.4 % (11.7-14.2); RDW Standard Deviation 50.3 fL (35.1-46.3); Red Blood Cell Count 3.72 M/mm3 (4.30-5.90); White Blood Cell Count 20.99 K/mm3 (4.00-11.30)
[2021-09-04 07:16] LABS: IMMATURE GRAN ABSOLUTE AUTO 0.16 K/mm3 (0.00-0.10); IMMATURE GRAN PERCENT AUTO 1 % (0-1); LYMPHOCYTES ABSOLUTE AUTO 0.71 K/mm3 (0.84-5.20); LYMPHOCYTES PERCENT AUTO 3 % (21-46); MONOCYTES ABSOLUTE AUTO 0.17 K/mm3 (0.16-1.47); MONOCYTES PERCENT AUTO 1 % (4-13); NEUTROPHILS ABSOLUTE AUTO 19.85 K/mm3 (1.96-9.15); NEUTROPHILS PERCENT AUTO 95 % (41-73)
[2021-09-04 07:21] LABS: Magnesium, Blood 2.1 mg/dL (1.6-2.4)
[2021-09-04 07:27] LABS: Albumin, Blood 1.7 g/dL (3.4-5.0); Albumin/Globulin Ratio 0.4 (0.8-1.8); Bilirubin, Total 0.5 mg/dL (0.1-1.0); Bun/Creatinine Ratio 11.3 (12.0-20.0); Calcium, Blood 8.2 mg/dL (8.5-10.1); Creatinine, Blood 5.15 mg/dL (0.60-1.20); Globulin, Blood 4.4 g/dL (2.2-4.0); Phosphorus, Blood 7.4 mg/dL (2.5-4.9); Total Protein, Blood 6.1 g/dL (6.4-8.2)
[2021-09-04 07:30] LABS: Potassium, Blood 6.1 mmol/L (3.5-5.5)
[2021-09-04 07:41] LABS: BASOPHILS PERCENT MAN 0 % (0-2); EOSINOPHILS PERCENT MAN 0 % (0-6); LYMPHOCYTES PERCENT MAN 1 % (21-46); MONOCYTES PERCENT MAN 0 % (4-13); NEUTROPHILS ABSOLUTE MAN 20.78 K/mm3 (1.96-9.15); SEG NEUTROPHILS PERCENT MAN 99 % (41-73); TOTAL CELLS COUNTED 100
[2021-09-04 14:55] LABS: Albumin, Blood 1.8 g/dL (3.4-5.0); Anion Gap 11 mmol/L (6-16); Blood Urea Nitrogen 62 mg/dL (8-24); Bun/Creatinine Ratio 12.4 (12.0-20.0); CO2, Blood 22 mmol/L (21-32); Calcium, Blood 8.3 mg/dL (8.5-10.1); Chloride, Blood 101 mmol/L (98-108); Creatinine, Blood 4.99 mg/dL (0.60-1.20); Glomerular Filtration Rate 11 (60-); Glucose, Blood 631 mg/dL (70-99); Phosphorus, Blood 6.7 mg/dL (2.5-4.9); Potassium, Blood 4.6 mmol/L (3.5-5.5); Sodium, Blood 134 mmol/L (136-145)
--- NOTE | 2021-09-04 17:17 | NUR ---
SUMMARY PT SITTING UP IN BED VISITING WITH HIS SPOUSE, PT HAS BEE MORE AWAKE AND ALERT TODAY, PLEASANT AND COOPERATIVE WITH CARE, FORGETFUL AND OCC NEEDS REORIENTATION, PT HAS BEEN ABLE TO STAND WITH 1P ASSIST, LESS LOOSE STOOL TODAY THAN YESTERDAY, PT NAUSEATED AT THE BEGINNING OF THE DAY, LESS THIS AFTERNOON, MED PER EMAR WITH GOOD RESULTS, PT WITH A BETTER APPETITE THIS AFTERNOON WELL, PT'S CBG HIGH TODAY, DR LENTZ AWARE, WILL MONITOR AND COVER CBG NEEDED, PT WITH BETTER OUTPUT TODAY, VSS, WILL CONT TO MONITOR
--- NOTE | 2021-09-05 03:39 | NUR ---
SHIFT SUMMARY PATIENT HAD NO ACUTE CHANGES OBSERVED. AXOX 3 FORGETFUL. ONE ASSIST TO BSC AND USING URINAL AT BEDSIDE. PIV REMAINS INTACT. NS INFUSING AT 75mL/HR. RN QUALITY REPORTS NSR 78. CBG 196. VSS/AFEBRILE. DENIES PAIN, SOB, AND N/V. CALL LIGHT IN REACH. BED IN LOWEST POSITION AND ALARM ACTIVATED FOR IMPULSIVENESS. WILL CONTINUE TO MONITOR UNTIL DAY SHIFT NURSE ASSUMES CARE.
[2021-09-05 09:49] LABS: Albumin, Blood 1.8 g/dL (3.4-5.0); Anion Gap 13 mmol/L (6-16); Blood Urea Nitrogen 70 mg/dL (8-24); Bun/Creatinine Ratio 16.5 (12.0-20.0); CO2, Blood 21 mmol/L (21-32); Calcium, Blood 7.8 mg/dL (8.5-10.1); Chloride, Blood 106 mmol/L (98-108); Creatinine, Blood 4.24 mg/dL (0.60-1.20); Glomerular Filtration Rate 14 (60-); Glucose, Blood 315 mg/dL (70-99); Phosphorus, Blood 6.6 mg/dL (2.5-4.9); Potassium, Blood 3.7 mmol/L (3.5-5.5); Sodium, Blood 140 mmol/L (136-145)
--- NOTE | 2021-09-05 18:32 | NUR ---
SHIFT SUMMARY: PT A/0 X 3 STEADY ON FEET WITH STANDBY ASSIST. PT HAS BEEN PLEASANT AND COOPERATIVE WITH CARE, OCCASIONALLY IMPULSIVE GETTING OOB TO USE BATHROOM. PT CONTINUES TO HAVE CROUPY LIKE NON PRODUCTIVE COUGH. WBC CONTINUES TO BE ELEVATED. GFR 14. PT PRODUCING CLEAR YELLOW URINE AND IS CONTINENT.
--- NOTE | 2021-09-06 03:51 | NUR ---
SHIFT SUMMARY PATIENT HAD NO ACUTE CHANGES OBSERVED. AXOX 3 AND IMPULSIVE UP TO [facility] T/O SHIFT. ON BED ALARM. NON-PRODUCTIVE COUGH AND GUAIFENESIN GIVEN PER EMAR. NS RATE CHANGE FROM 75mL/HR TO 50 mL/HR. DENIES PAIN, SOB, AND N/V. VSS/AFEBRILE. PIV REMAINS INTACT. PLACEMENT SECRETARY REPORTS NSR 75. CBG 195. CALL LIGHT IN REACH. BED IN LOWEST POSITION. WILL CONTINUE TO MONITOR UNTIL DAY SHIFT NURSE ASSUMES CARE.
[2021-09-06 05:03] LABS: BASOPHILS ABSOLUTE AUTO 0.02 K/mm3 (0.00-0.23); BASOPHILS PERCENT AUTO 0 % (0-2); EOSINOPHILS ABSOLUTE AUTO 0.06 K/mm3 (0.00-0.68); EOSINOPHILS PERCENT AUTO 0 % (0-6); Hematocrit 22.3 % (37.0-53.0); Hemoglobin 7.4 g/dL (13.5-17.5); IMMATURE GRAN ABSOLUTE AUTO 0.09 K/mm3 (0.00-0.10); IMMATURE GRAN PERCENT AUTO 1 % (0-1); LYMPHOCYTES ABSOLUTE AUTO 1.05 K/mm3 (0.84-5.20); LYMPHOCYTES PERCENT AUTO 8 % (21-46); MONOCYTES ABSOLUTE AUTO 0.61 K/mm3 (0.16-1.47); MONOCYTES PERCENT AUTO 4 % (4-13); Mean Corpuscular HGB 29.1 pg (26.0-34.0); Mean Corpuscular HGB Conc 33.2 g/dL (31.5-36.5); Mean Corpuscular Volume 88 fL (80-100); Mean Platelet Volume 12.2 fL (9.1-12.4); NEUTROPHILS PERCENT AUTO 87 % (41-73); Platelet Count 282 K/mm3 (150-400); RDW Coefficient Variation 15.6 % (11.7-14.2); RDW Standard Deviation 50.3 fL (35.1-46.3); Red Blood Cell Count 2.54 M/mm3 (4.30-5.90); White Blood Cell Count 13.73 K/mm3 (4.00-11.30)
[2021-09-06 05:40] LABS: Albumin, Blood 1.6 g/dL (3.4-5.0); Anion Gap 11 mmol/L (6-16); Blood Urea Nitrogen 61 mg/dL (8-24); Bun/Creatinine Ratio 19.5 (12.0-20.0); CO2, Blood 23 mmol/L (21-32); Calcium, Blood 7.7 mg/dL (8.5-10.1); Chloride, Blood 108 mmol/L (98-108); Creatinine, Blood 3.13 mg/dL (0.60-1.20); Glomerular Filtration Rate 20 (60-); Glucose, Blood 336 mg/dL (70-99); Phosphorus, Blood 4.2 mg/dL (2.5-4.9); Sodium, Blood 142 mmol/L (136-145)
--- NOTE | 2021-09-06 11:30 | NUR ---
HIGH BLOOD SUGAR PT WAS C/O FEELING DIZZY. BS WAS CHECKED AND REVEALED 379. DR. LENTZ NOTIFIED AND REGULAR INSULIN ORDER WAS CHANGED TO MEDIUM CORRECTION SCALE.
--- NOTE | 2021-09-06 17:47 | NUR ---
SHIFT SUMMARY PT HAS HAD HIGH SUGARS IN THE 300S AT BREAKFAST AND LUNCH. CORRECTION SCALE WAS CHANGED TO MEDIUM FROM LOW. AFTERNOON BLOOD SUGAR WAS ONLY 62. PT GIVEN POPCYCLE AND IT WAS RECHECKED IN AN HOUR PER DR. LENTZ. BLOOD SUGAR IMPROVED TO 85, WITH DINNER ON THE WAY. DR. LENTZ CHANGED PT BACK TO A LOW CORRECTION SCALE. PT AMBULATED HALLWAY TODAY & TOOK SHOWER. MOVING WELL WITH MINIMAL ASSIST. POSITIVE BLOOD CULTURES WERE RELAYED TO DR LENTZ. NO OTHER ACUTE CHANGE IN ASSESSMENT THIS TIME. VS REVIEWED. CALL LIGHT IN REACH.
--- NOTE | 2021-09-07 03:44 | NUR ---
SHIFT SUMMARY PATIENT HAD NO ACUTE CHANGES OBSERVED. AXOX 3 AND IMPULSIVE TO BC. HX DEMENTIA. ONE ASSIST TO BSC AND USES URINAL AT BESIDE. NON PRODUCTIVE COUGH AND GUAIFENESIN GIVEN PER EMAR X ONE. VSS/AFEBRILE. DENIES PAIN, SOB, AND N/V.PIV REMAINS INTAC. NS INFUSING AT 50mL/HR. CBG 169. CALL LIGHT IN REACH. BED IN LOWEST POSITION. WILL CONTINUE TO MONITOR UNTIL DAY SHIFT NURSE ASSUMES CARE.
--- NOTE | 2021-09-07 15:00 | NUR ---
Spiritual care visit conducted. Patient tells me about the confusion he has concerning his current diagnosis and plan of care. Patient then talks at length about all the things that he is thankful for and as the patient does this exercise he shows signs of an elevated mood. His spouse, Sultana, his brother Neto, his two sons in [place], his huge dogs, each breath and this hospital. He says that the care he has received is rated a 10 in his mind. I provide therapeutic listening and prayer. Patient responds well and shows signs of being encouraged in his own belief system (as a Messianic Mosque). I will continue to remain available to patient and family.
[2021-09-07 17:13] LABS: BASOPHILS ABSOLUTE AUTO 0.01 K/mm3 (0.00-0.23); BASOPHILS PERCENT AUTO 0 % (0-2); EOSINOPHILS ABSOLUTE AUTO 0.28 K/mm3 (0.00-0.68); EOSINOPHILS PERCENT AUTO 3 % (0-6); Hematocrit 24.1 % (37.0-53.0); Hemoglobin 7.7 g/dL (13.5-17.5); IMMATURE GRAN ABSOLUTE AUTO 0.03 K/mm3 (0.00-0.10); IMMATURE GRAN PERCENT AUTO 0 % (0-1); LYMPHOCYTES ABSOLUTE AUTO 1.49 K/mm3 (0.84-5.20); LYMPHOCYTES PERCENT AUTO 17 % (21-46); MONOCYTES ABSOLUTE AUTO 0.61 K/mm3 (0.16-1.47); MONOCYTES PERCENT AUTO 7 % (4-13); Mean Corpuscular HGB 29.1 pg (26.0-34.0); Mean Corpuscular Volume 91 fL (80-100); Mean Platelet Volume 12.2 fL (9.1-12.4); NEUTROPHILS ABSOLUTE AUTO 6.62 K/mm3 (1.96-9.15); NEUTROPHILS PERCENT AUTO 73 % (41-73); Platelet Count 302 K/mm3 (150-400); RDW Coefficient Variation 15.8 % (11.7-14.2); Red Blood Cell Count 2.65 M/mm3 (4.30-5.90); White Blood Cell Count 9.04 K/mm3 (4.00-11.30)
--- NOTE | 2021-09-07 17:48 | NUR ---
Notes from 09/04/21 71 YOM BROUGHT INTO ER BY HIS DUE TO FAILURE TO THRIVE. ADOLPH LIKELY DUE TO POOR PO INTAKE. ALSO DIAGNOSED WITH SEPSIS. LUNG MASS WAS DISCOVERED DURING LAST HOSPITALIZATION. I HAD THE PLEASURE OF MEETING MR. ENRIQUEZ DURING HIS LAST HOSPITAL STAY. AT TIME OF DISCHARGE HE ACTUALLY SEEMED TO BE DOING QUITE WELL. HE WORKED WITH PT AND WAS AMBULATING WITHOUT CONCERN. I HAD OFFERED A REFERRAL FOR HOME HEALTH SERVICES AND BOTH PATIENT AND HAD DECLINED. ENCOURAGED THEM TO AT LEAST ALLOW FOR HH NURSING DUE TO RECENT HYPOGLYCEMIA, WEIGHT LOSS, AND CHANGES IN MEDS. EXPLAINED THE VALUE OF HH NURSING IN DEPTH, THEY STILL DECLINED SERVICES. I HAD PROVIDED THEM WITH EFM NUMBER TO CONTACT IN THE EVENT THEY CHANGED THEIR MINDS. IN REVIEWING THE CHART NOTES FROM ADMISSION, PT. HAS DECLINED QUITE A BIT SINCE LAST HOSPITAL STAY. PT. LIVING WITH ROBIN PRIOR TO ADMISSION. ABLE TO COMPLETE ADLS WITH LITTLE ASSISTANCE UNTIL RECENTLY. PER PATIENT'S , HE HAS STOPPED EATING AND TAKING HIS MEDICATIONS. SHE STATES THE ONLY DRINKS WATER. HAD CONTACTED PCP YESTERDAY TO INQUIRE ABOUT WHAT SHE SHOULD DO TO ENCOURAGE PATIENT TO BE COMPLIANT WITH CARE PLAN. REFERRAL WAS PLACED TO COMMUNITY PATIENT NAVIGATOR. PT. WAS EVALUATED IN ED PRIOR TO PROGRESS WITH ADDITIONAL RESOURCES. ANTICIPATE NEEDS AT TIME OF DISCHARGE TO INCLUDE: PT/OT EVAL, HH REFERRAL AT MINIMUM, POSSIBLY SNF, HOSPITAL F/U WITHIN 5-[address] SCHULTZ, AND F/U WITH PULMONOLOGY. DISPOSITION IS UNKNOWN AT THIS TIME.
--- NOTE | 2021-09-07 17:51 | NUR ---
ANTICIPATE NEEDS AT TIME OF DISCHARGE TO INCLUDE: PT/OT EVAL, HH REFERRAL AT MINIMUM, POSSIBLY SNF, HOSPITAL F/U WITHIN 5-[address] SCHULTZ, AND F/U WITH PULMONOLOGY. DISPOSITION IS UNKNOWN AT THIS TIME. PT/OT eval ordered by Dr. Stein. Pt. likely appropriate for SNF. Discharge plan pending PT/OT eval.
--- NOTE | 2021-09-07 18:09 | NUR ---
SHIFT SUMMARY A/OX3, FORGETFUL AT TIMES. STEADY GAIT, SBA WITH FWW. NS RUNNING AT 50. VSS, NO ACUTE CHANGES AT THIS TIME. BED IN LOWEST POSITION WITH CALL LIGHT IN REACH. WILL CONTINUE TO MONITOR AND REPORT TO ONCOMING RN.
--- NOTE | 2021-09-08 05:09 | NUR ---
SHIFT SUMMARY AOX3-UNAWARE DATE, OTHERWISE ANSWERED ORIENTATION QUESTIONS CORRECT. FORGETFUL. DENIES PAIN, N/V OR SOB. HAS HARSH, DRY HACKING COUGH. SPO2 >90% ON RA. LS DIM IN BASES. HS CBG @368, PROVIDED COVERAGE PER EMAR. NS RUNNING @50ML/HR. AWAITING SAFE DC PLAN. CALL LIGHT IN REACH & PT ABLE TO MAKE NEEDS KNOWN. WCTM.
[2021-09-08 05:13] LABS: BASOPHILS ABSOLUTE AUTO 0.01 K/mm3 (0.00-0.23); BASOPHILS PERCENT AUTO 0 % (0-2); EOSINOPHILS ABSOLUTE AUTO 0.68 K/mm3 (0.00-0.68); EOSINOPHILS PERCENT AUTO 8 % (0-6); Hematocrit 23.4 % (37.0-53.0); Hemoglobin 7.6 g/dL (13.5-17.5); IMMATURE GRAN ABSOLUTE AUTO 0.03 K/mm3 (0.00-0.10); IMMATURE GRAN PERCENT AUTO 0 % (0-1); LYMPHOCYTES ABSOLUTE AUTO 2.09 K/mm3 (0.84-5.20); LYMPHOCYTES PERCENT AUTO 24 % (21-46); MONOCYTES ABSOLUTE AUTO 0.62 K/mm3 (0.16-1.47); MONOCYTES PERCENT AUTO 7 % (4-13); Mean Corpuscular HGB 29.2 pg (26.0-34.0); Mean Corpuscular HGB Conc 32.5 g/dL (31.5-36.5); Mean Corpuscular Volume 90 fL (80-100); Mean Platelet Volume 11.7 fL (9.1-12.4); NEUTROPHILS ABSOLUTE AUTO 5.29 K/mm3 (1.96-9.15); NEUTROPHILS PERCENT AUTO 61 % (41-73); Platelet Count 284 K/mm3 (150-400); RDW Coefficient Variation 15.8 % (11.7-14.2); White Blood Cell Count 8.72 K/mm3 (4.00-11.30)
[2021-09-08 05:36] LABS: Albumin, Blood 1.6 g/dL (3.4-5.0); Albumin/Globulin Ratio 0.5 (0.8-1.8); Bilirubin, Total 0.3 mg/dL (0.1-1.0); Bun/Creatinine Ratio 24.9 (12.0-20.0); Calcium, Blood 7.9 mg/dL (8.5-10.1); Creatinine, Blood 1.81 mg/dL (0.60-1.20); Globulin, Blood 3.5 g/dL (2.2-4.0); Phosphorus, Blood 2.1 mg/dL (2.5-4.9); Potassium, Blood 3.1 mmol/L (3.5-5.5); Total Protein, Blood 5.1 g/dL (6.4-8.2)
--- NOTE | 2021-09-08 13:37 | NUR ---
REQUESTING FULL CODE Patient called this RN into room and inquired about purple DNR band. Asks this RN "Does this mean `Do not resuscitate'?" pointing to band. This RN nodded "yes" to question. Patient stated "Well, can you take it off. I want to be resuscitated." This RN explained some complications of CPR: Fractured ribs, risk of aspirating on stomach contents, prolonged hospitalization, infection, intubation, pneumonia. Patient verbalized understanding; however, still requesting Full Code status. Notified Dr. Stein. Awaiting new orders.
--- NOTE | 2021-09-08 18:10 | NUR ---
Shift Summary A/Ox3, extremely forgetful. Patient even reported that he forgot how his dog looks like or if he had a bowel movement an hour ago after going to the bathroom. Pleasant and cooperative with care. Code status changed to Full per patient's request, notified and is also on board. SBA to bathroom. Denies pain, nausea. No acute concerns, WCTM.
[2021-09-09 04:57] LABS: BASOPHILS ABSOLUTE AUTO 0.03 K/mm3 (0.00-0.23); BASOPHILS PERCENT AUTO 0 % (0-2); EOSINOPHILS ABSOLUTE AUTO 0.41 K/mm3 (0.00-0.68); EOSINOPHILS PERCENT AUTO 5 % (0-6); Hematocrit 25.9 % (37.0-53.0); Hemoglobin 8.5 g/dL (13.5-17.5); IMMATURE GRAN ABSOLUTE AUTO 0.02 K/mm3 (0.00-0.10); IMMATURE GRAN PERCENT AUTO 0 % (0-1); LYMPHOCYTES ABSOLUTE AUTO 2.88 K/mm3 (0.84-5.20); LYMPHOCYTES PERCENT AUTO 35 % (21-46); MONOCYTES ABSOLUTE AUTO 0.73 K/mm3 (0.16-1.47); MONOCYTES PERCENT AUTO 9 % (4-13); Mean Corpuscular HGB 29.2 pg (26.0-34.0); Mean Corpuscular HGB Conc 32.8 g/dL (31.5-36.5); Mean Corpuscular Volume 89 fL (80-100); Mean Platelet Volume 12.1 fL (9.1-12.4); NEUTROPHILS ABSOLUTE AUTO 4.21 K/mm3 (1.96-9.15); NEUTROPHILS PERCENT AUTO 51 % (41-73); Platelet Count 325 K/mm3 (150-400); RDW Coefficient Variation 15.4 % (11.7-14.2); RDW Standard Deviation 50.1 fL (35.1-46.3); Red Blood Cell Count 2.91 M/mm3 (4.30-5.90); White Blood Cell Count 8.28 K/mm3 (4.00-11.30)
--- NOTE | 2021-09-09 05:20 | NUR ---
PATIENT'S BLOOD SUGAR AT WAS 352, DR. HOLCOMB WAS CALLED AND NOTIFIED. DR HOLCOMB GAVE BLOOD SUGAR NEW ORDERS TO INCREASE SEMGLEE TO SEMGLEE 20 UNITS SC DAILY, TO INCREASE HUMALOG ORDER TO HUMALOG HIGH CORRECTION SCALE AC ONLY. PATIENT REFUSED TO GET SEMGLEE 20 UNITS AND STATES THAT WAS TOO HIGH FOR HIM. HE STATES HE WILL TAKE 8 UNITS OF SEMGLEE. PATIENT WAS GIVEN 8 UNITS OF SEMGLEE PER HIS REQUEST AND PATIENT WAS GIVEN HUMALOG 6 UNITS PER 'S ORDER. PATIENT ALSO REFUSED BS TO BE RECHECKED AND STATED "I AM DOING OK". PATIENT DENIES S/S OF HYPERGLYCERMIA. EARLY THIS MORNING CYLINDER HEAD ASSEMBLER REPORTED PATIENTS IV LINED OUT SHE ASSISTED PATIENT TO BATHROOM. PATIENT STATES HE DOES NOT KNOW HOW IT HAPPENED. PATIENT APPEARS COMFORTABLE, NO DISTRESS NOTED. WILL CONTINUE TO MONITOR. PULLED OUT HIS IV
--- NOTE | 2021-09-09 08:10 | NUR ---
Blood glucose < 17 AM blood glucose check was < 17 twice. Patient awake and mumbling incoherently, unable to answer questions or follow directions. infection control rn notified. Noc RN reported IV access loss during the night. IV initiated, Dr. Stein notified and present. Glucose gel overrided from pyxis and given subling. IV dextrose administered after IV access gained. Patient became alert and c/o about being cold. Blankets given, blood glucose recheck found to be > 180. Settled patient to bed, alarm on for safety, bed in lowest position.
[2021-09-09 11:14] LABS: Albumin, Blood 1.8 g/dL (3.4-5.0); Anion Gap 8 mmol/L (6-16); Blood Urea Nitrogen 37 mg/dL (8-24); CO2, Blood 29 mmol/L (21-32); Calcium, Blood 8.1 mg/dL (8.5-10.1); Chloride, Blood 107 mmol/L (98-108); Creatinine, Blood 1.61 mg/dL (0.60-1.20); Glomerular Filtration Rate 42 (60-); Phosphorus, Blood 2.7 mg/dL (2.5-4.9); Potassium, Blood 3.4 mmol/L (3.5-5.5); Sodium, Blood 144 mmol/L (136-145)
[2021-09-09 11:26] LABS: Glucose, Blood 42 mg/dL (70-99)
--- NOTE | 2021-09-09 13:26 | NUR ---
Patient is lying in bed and resting. Patient talks easily awakens to the sound of his name. Patient states that he is at peace and that he has been sleeping a lot. He is encouraged by discussions centered on God and the Bible. He repeats himself often during our conversation. He continues to remain thankful for his spouse, Sultana, his dogs and brother, Neto. He again mentions how well he feels he is being cared for by the hospital staff. I provide therapeutic listening, companionship and prayer. Patient responds well and shows sign of an elevated mood. I will continue to remain available.
--- NOTE | 2021-09-09 17:03 | NUR ---
Per chart review this am with Dr. Stein, discussion with patient and occured yesterday evening. Pt. continues to decline the option of long-term care. Met with patient this am to discuss his needs and understanding of options. Pt. stated that he understand that he needs additional assistance, but would like to return home. We briefly discussed long-term care. It was very obvious early on in the conversation that pt. is not going to agree to that option. We then shifted discussion to hospice care vs. home health. Pt. admitted that he had a limited understanding of hospice. We discussed hospice services and the difference between hospice and home health. Pt. agreeable to discussing further. When given a preference, pt. stated that he does not have a preference between hospice/HH providers. I asked if he would be open to having Gabby with [facility]. Pt. is agreeable. Discussed patient's case with Gabby ([facility]). She will be meeting with patient likely this evening to discuss further. Anticipate pt. going home with [facility]/Hospice services. I will contact his and offer a caregiver packet. If pt. chooses servics, I will recommend that he apply for Medicaid long-term care assistance. He would then qualify for caregiver assistance. Plan to request [facility] staff to assist with this process if indicated.
--- NOTE | 2021-09-09 17:16 | NUR ---
BLOOD GLUCOSE [address] Stein RE above findings. Orders received.
--- NOTE | 2021-09-09 18:15 | NUR ---
Shift Summary Patient mostly remained in bed other than ambulating to bathroom. Low motivation. C/O being cold after hypoglycemia incident this AM (see previous note). Warm blankets given. Otherwise, appetite is good. A/O to self, family, city. Does not remember month/year or reason for admit.
--- NOTE | 2021-09-09 21:33 | NUR ---
PATIENT'S BLOOD SUGAR AT HS 369, PATIENT RECEIVED 4 UNITS OF HUMALOG PER ORDER. CALLED AND NOTIFIED DR. HATHAWAY NO NEW ORDERS.
--- NOTE | 2021-09-09 22:52 | NUR ---
PATIENT'S BLOOD SUGAR WAS 369 GAVE 4 UNITS OF HUMALOG, NOTIFIED DR. HATHAWAY WITH NO NEW ORDER. BLOOD SUGAR WAS RECHECKED AND IT DECREASED TO 322. CHARGE NURSE NOTIFIED AND WILL CHECK AGAIN WHEN THE LABS COMES IN THE MORNING. PATIENT WAS STABLE, A/O WITH NO S/S OF DISTRESS OR HYPERGLYCERMIA.
--- NOTE | 2021-09-10 06:44 | NUR ---
PATIENT WAS NOTED WITH COUGHING, PATIENT COMPLAINED OF PAIN WITH COUGHING. PATIENT WAS GIVEN ROBITUSSIN 5ML AND TYLENOL WITH GOOD EFFECT. WILL CONTINUE TO MONITOR.
--- NOTE | 2021-09-10 14:47 | NUR ---
71 year old male admitted for ADOLPH, PNA, and Sepsis. Pt medical history and comorbidities include: Adrenal Insufficiency, COPD, Chron's Disease, DM1, HTN, CKD3, DVT, Cavitary Lung Lesion, Alcohol Abuse, Vascular Dementia, Hypothyroidism, CVA, DVT, and Osteoporosis. Spoke with Dr Stein and Robson D/C Plastic Frame Inserter Pauline. Plan for Pt to D/C home today, spouse may benefit from discussion regarding goals of care including options for home health and hospice. Spouse may benefit from discussion regarding advanced care planning. Spoke with PT Masoud and discussed case. Pt resting in bed upon arrival. Pt is A&O and denies pain, dyspnea, and anxiety at this time. Discussed potential of D/C today with Pt in agreement. Spoke with Pt's primary RN Randa and discussed case. Pt is able to ambulate independently but requires assistance with bathing and dressing. Pt has poor appetite and is forgetful. Called and spoke with Pt's spouse Sultana. Provided update and attempted to answer questions. Sultana appears to have poor insight and low level of understanding of Pt's health. She has difficulty with understanding as this RN answers questions. Sultana required slow and simple explanations with education re-enforcement. Educated on Pt's chronic illnesses including trajectory. Sultana still struggles understanding of illnesses and implications of choices. Sultana briefly discusses Pt's code status and states having conversations with hime and PCP with wishes for DNR. She states "He is always changing his mind and can't remember anything we talk about". Again attempted to re-enforce education on Pt's Dementia with S/S Pt may experience. Sultana reports not wanting anyone coming into the home and states "I will just come pick him up" and "my son has medical experience and is a EMT, he can just help keep him out of the hospital". Offered therapeutic listening until Sultana was ready to end phone call. PPS 50% Multiple hospitilizations this year Pt high risk for readmission
--- NOTE | 2021-09-10 15:48 | NUR ---
Spiritual care visit conducted. Patient's brother, Neto contacted me today and was concerned that the family was not getting enough information. I gave him Patient Advocate Aby's phone number to call. I also visited with the patient and the patient talked at length about how well he has been treated by the staff in the hospital, about his sinai in the teachings about "Be Here Now" and about his peace about just getting to lay in bed and eat good ffod and watch TV. I provide therapeutic listening and companionship. Patient responds well and shows signs of an elevated mood. I will continue to reamin available to patient and family.
--- NOTE | 2021-09-10 16:45 | NUR ---
PATIENT DISCHARGED TO HOME WITH HIS . IV SALINE LOCK REMOVED WITHOUT INCIDENT. VERBALIZED UNDERSTANDING OF D/C INSTRUCTIONS. WROTE ADDITIONAL INSTRUCTION TO TAKE NEXT LEVOFLOXACIN DOSE ON TUESDAY HE ALREADY HAD HIS DOSE THIS MORNING. OFF UNIT VIA W/C AT 1635. NO PERSONAL BELONGINGS LEFT BEHIND IN ROOM.
--- NOTE | 2021-09-10 17:28 | NUR ---
Multiple discussions have occurred with pt. and spouse regarding need for additional care. Pt. and spouse have declined assisted living facility. Discussed hospice care vs. home health as noted in chart. Pt. has been agreeable to [facility], spouse is not agreeable to having anyone in their home. Requested Palliative care consult to discuss goals of care with patient's . During that conversation patient's stated that she would just come get patient and that her grandson will assist with patients care. At this point we have offered many options for assistance and all have been declined. Scheduled F/U with PCP on earliest available opening 09/15/2021. Provided pt. with that information. [facility] team will F/U with pt. within 24-48 hours.
== END 2021-09-10 16:35 | disposition home or self-care (01) | DRG 871 ==
LOC: ER 17:53 → MEDS 17:54
PROVIDERS: Emergency Medicine; Family Medicine; Hospitalist; Internal Medicine; Physician Assistant; ADMIT Internal Medicine
DX: A41.52 Sepsis due to Pseudomonas (principal); J15.1 Pneumonia due to Pseudomonas; E43 Unspecified severe protein-calorie malnutrition; N17.9 Acute kidney failure, unspecified; K50.90 Crohn's disease, unspecified, without complications; E27.40 Unspecified adrenocortical insufficiency; E87.2 Acidosis; Z68.21 Body mass index [BMI] 21.0-21.9, adult; Z66 Do not resuscitate; E87.5 Hyperkalemia; Z20.822 Contact with and (suspected) exposure to COVID-19; Z23 Encounter for immunization; Z86.73 Personal history of transient ischemic attack (TIA), and cerebral infarction without residual deficits; N18.30 Chronic kidney disease, stage 3 unspecified; J44.9 Chronic obstructive pulmonary disease, unspecified; E06.3 Autoimmune thyroiditis; F10.10 Alcohol abuse, uncomplicated; E31.0 Autoimmune polyglandular failure; E10.22 Type 1 diabetes mellitus with diabetic chronic kidney disease; F01.50 Vascular dementia, unspecified severity, without behavioral disturbance, psychotic disturbance, mood disturbance, and anxiety; E86.0 Dehydration; E10.649 Type 1 diabetes mellitus with hypoglycemia without coma; I12.9 Hypertensive chronic kidney disease with stage 1 through stage 4 chronic kidney disease, or unspecified chronic kidney disease; E78.5 Hyperlipidemia, unspecified; M81.0 Age-related osteoporosis without current pathological fracture; Z87.891 Personal history of nicotine dependence; Z79.899 Other long term (current) drug therapy; Z79.4 Long term (current) use of insulin; E83.39 Other disorders of phosphorus metabolism; D64.9 Anemia, unspecified; E87.6 Hypokalemia; E10.65 Type 1 diabetes mellitus with hyperglycemia
CPT/HCPCS: 36415; 51701; 71045; 71250; 74176; 76770; 80048; 80053; 80069; 81001; 82140; 82947; 83605; 83735; 84100; 84484; 85025; 85610; 87040; 87086; 87493; 93005; 93010; 94640; 94664; 94760; 96365; 96375; 96376; 97129; 97161; 97165; 99285-25; A9270; G0378; G0480; J0713; J1720; J1815; J1940; J2405; J7030; J7042; J7060; J7070; U0004

== ENCOUNTER 2021-09-16 13:23 | Emergency (ER) | payer MEDICARE, OTHER ==
[~2021-09-16] VITALS: Ht 170.2 cm; Wt 63.5 kg
[2021-09-16 13:51] LABS: BASOPHILS ABSOLUTE AUTO 0.05 K/mm3 (0.00-0.23); BASOPHILS PERCENT AUTO 0 % (0-2); EOSINOPHILS ABSOLUTE AUTO 2.84 K/mm3 (0.00-0.68); EOSINOPHILS PERCENT AUTO 13 % (0-6); Hematocrit 28.4 % (37.0-53.0); Hemoglobin 9.1 g/dL (13.5-17.5); IMMATURE GRAN ABSOLUTE AUTO 0.14 K/mm3 (0.00-0.10); IMMATURE GRAN PERCENT AUTO 1 % (0-1); LYMPHOCYTES ABSOLUTE AUTO 1.25 K/mm3 (0.84-5.20); LYMPHOCYTES PERCENT AUTO 6 % (21-46); MONOCYTES ABSOLUTE AUTO 1.09 K/mm3 (0.16-1.47); MONOCYTES PERCENT AUTO 5 % (4-13); Mean Corpuscular HGB 29.9 pg (26.0-34.0); Mean Corpuscular Volume 93 fL (80-100); Mean Platelet Volume 10.8 fL (9.1-12.4); NEUTROPHILS ABSOLUTE AUTO 16.46 K/mm3 (1.96-9.15); NEUTROPHILS PERCENT AUTO 76 % (41-73); Platelet Count 472 K/mm3 (150-400); RDW Standard Deviation 51.5 fL (35.1-46.3); Red Blood Cell Count 3.04 M/mm3 (4.30-5.90); White Blood Cell Count 21.83 K/mm3 (4.00-11.30)
[2021-09-16 14:27] LABS: Source, Urine Voided
[2021-09-16 14:28] LABS: Albumin, Blood 1.8 g/dL (3.4-5.0); Albumin/Globulin Ratio 0.5 (0.8-1.8); Bilirubin, Total 0.9 mg/dL (0.1-1.0); Bun/Creatinine Ratio 12.4 (12.0-20.0); Calcium, Blood 8.4 mg/dL (8.5-10.1); Creatinine, Blood 2.34 mg/dL (0.60-1.20); Globulin, Blood 3.8 g/dL (2.2-4.0); Potassium, Blood 4.6 mmol/L (3.5-5.5); Total Protein, Blood 5.6 g/dL (6.4-8.2)
[2021-09-16 14:34] LABS: Appearance, Urine Clear (Clear); Bilirubin, Urine Neg (Neg); Blood, Urine 4+ (Neg); Color, Urine Yellow (P-Yellow); Glucose Qualitative, Urine 4+ (Neg); Ketones, Urine 3+ (Neg); Leukocyte Esterase, Urine Neg (Neg); Nitrite, Urine Neg (Neg); Protein, Urine 2+ (Neg); Specific Gravity, Urine 1.015 (1.003-1.022); Urobilinogen, Urine NORM (Normal)
[2021-09-16 15:05] LABS: Bacteria Few /hpf; Squamous Epithelial Cells Few /hpf (Few)
[2021-09-16 15:06] LABS: Hyaline Casts 0-2 /lpf (0-2)
[2021-09-16 17:15] LABS: SARS-Cov-2 (COVID-19) PCR, MMC NEGATIVE (NEGATIVE)
[2021-09-18 10:20] LABS: Calcium, Ionized (POC) 1.06 mmol/L (1.10-1.46); Chloride (POC) 102 mmol/L (98-108); Creatinine (POC) 3.2 mg/dL (0.8-1.3); Glucose (ISTAT POC) 693 mg/dL (70-99); Hemoglobin (POC) 10.9 g/dL (13.5-17.5); Potassium (POC) 6.5 mmol/L (3.5-5.5); Sodium (POC) 133 mmol/L (135-148); Total CO2 (POC) 14 mmol/L (21-32)
== END 2021-09-16 18:15 | disposition home or self-care (01) ==
LOC: ER 13:23
PROVIDERS: Emergency Medicine
DX: N17.9 Acute kidney failure, unspecified (principal); D72.829 Elevated white blood cell count, unspecified; F01.50 Vascular dementia, unspecified severity, without behavioral disturbance, psychotic disturbance, mood disturbance, and anxiety; R62.7 Adult failure to thrive; I12.9 Hypertensive chronic kidney disease with stage 1 through stage 4 chronic kidney disease, or unspecified chronic kidney disease; E10.22 Type 1 diabetes mellitus with diabetic chronic kidney disease; N18.30 Chronic kidney disease, stage 3 unspecified; J44.9 Chronic obstructive pulmonary disease, unspecified; E78.5 Hyperlipidemia, unspecified; Z20.822 Contact with and (suspected) exposure to COVID-19; Z86.718 Personal history of other venous thrombosis and embolism; Z86.73 Personal history of transient ischemic attack (TIA), and cerebral infarction without residual deficits; Z87.891 Personal history of nicotine dependence; Z91.14 Patient's other noncompliance with medication regimen
CPT/HCPCS: 36415; 70450; 71045; 80047; 80053; 81001; 82947; 83605; 84484; 85014; 85025; 87040; 87086; 93005; 93010; 96365; 96367; 99285-25; J0692; J3370; J7030; U0004

== ENCOUNTER 2021-09-17 03:21 | Emergency (ER) | payer MEDICARE, OTHER ==
[~2021-09-17] VITALS: Ht 170.2 cm; Wt 59.0 kg
--- NOTE | 2021-09-17 10:03 | NUR ---
PAtient's spouse, Sultana, and brother, Neto, are bedside. Patient expires peacefully and is surrounded by love and care. I conduct a life review of patient until TOD at 0912 and then I provide grief support and prayer. Family respond well and show signs of being comforted.
== END 2021-09-17 10:42 ==
LOC: ER 03:21
DX: A41.9 Sepsis, unspecified organism (principal); R65.21 Severe sepsis with septic shock; N17.9 Acute kidney failure, unspecified; E10.10 Type 1 diabetes mellitus with ketoacidosis without coma; E87.5 Hyperkalemia; Z91.14 Patient's other noncompliance with medication regimen; I12.9 Hypertensive chronic kidney disease with stage 1 through stage 4 chronic kidney disease, or unspecified chronic kidney disease; E10.22 Type 1 diabetes mellitus with diabetic chronic kidney disease; N18.30 Chronic kidney disease, stage 3 unspecified; J44.9 Chronic obstructive pulmonary disease, unspecified; E78.5 Hyperlipidemia, unspecified; Z86.718 Personal history of other venous thrombosis and embolism; Z86.73 Personal history of transient ischemic attack (TIA), and cerebral infarction without residual deficits; Z87.891 Personal history of nicotine dependence
CPT/HCPCS: 51702; 93005; 93010; 96374; 99285-25; J2270